=== PATIENT | female | born 1990 | race Two or more races ===

== ENCOUNTER 2021-12-11 14:21 | Outpatient (REF) | payer MEDICAID, SELFPAY ==
--- NOTE | ~2021-12-11 | XR_ITS ---
EXAMINATION: XR LUMBOSACRAL SPINE WITH OBLIQUES CLINICAL INFORMATION: Low back pain. COMPARISON: None TECHNIQUE: AP, both oblique, and lateral views of the lumbar spine. Lateral view of the lumbosacral junction. FINDINGS: There is a transitional vertebral body segment or 6 lumbar-type vertebral bodies. There is mild curvature of the lower lumbar spine to the left. Bone alignment is normal. No fracture or dislocation is seen. Disc spaces are normal. No pars defect is appreciated. XR/XR lumbar spine 4V min IMPRESSION: Transitional anatomy. There are 6 lumbar-type vertebral bodies otherwise unremarkable exam.
== END 2021-12-11 14:22 | disposition home or self-care (01) ==
LOC: HO.XRAY 14:21
PROVIDERS: PCP Nurse Practitioner; Visit Provider Nurse Practitioner
DX: M54.50 Low back pain, unspecified (principal)
CPT/HCPCS: 72110

== ENCOUNTER 2022-10-08 12:10 | Outpatient (REF) | payer MEDICAID, SELFPAY ==
--- NOTE | ~2022-10-08 | XR_ITS ---
EXAMINATION: XR KNEE, LEFT CLINICAL INFORMATION: Chronic pain COMPARISON: None available. TECHNIQUE: Four views of the left knee. FINDINGS: Bones and soft tissues are normal. No fracture or joint effusion. Alignment is anatomic. Joint spaces are well maintained. No abnormal soft tissue calcification. XR/XR knee LT 4V IMPRESSION: Normal left knee.
== END 2022-10-08 12:11 | disposition home or self-care (01) ==
LOC: HO.XRAY 12:10
PROVIDERS: PCP Registered Nurse; Visit Provider Registered Nurse
DX: M25.562 Pain in left knee (principal)
CPT/HCPCS: 73564

== ENCOUNTER 2023-04-26 12:37 | Outpatient (REF) | payer MEDICAID, SELFPAY ==
[2023-04-26 15:07] LABS: Cholesterol 148 mg/dL (<200); HDL Cholesterol 39 mg/dL (>40); LDL Cholesterol Calculated 89 mg/dL (<100); Triglycerides 101 mg/dL (<150)
== END 2023-04-26 12:38 | disposition home or self-care (01) ==
LOC: HO.CHCLDS 12:37
PROVIDERS: Visit Provider Registered Nurse
DX: E11.9 Type 2 diabetes 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 complications (principal)
CPT/HCPCS: 36415; 80061

== ENCOUNTER 2024-01-03 08:13 | Outpatient (REF) | payer MEDICAID, SELFPAY ==
[2024-01-03 11:59] LABS: Rheumatoid Factor < 13.0 IU/mL (<15.0)
[2024-01-03 12:00] LABS: Basophils Percent Auto 0.4 % (0-2); Eosinophils Absolute Auto 0.1 X10*3/uL (0.0-0.4); Eosinophils Percent Auto 1.2 % (0-4); Hemoglobin 10.2 g/dl (12.0-16.0); Imm Gran Abs Auto 0.03 X10*3/uL (0.00-0.03); Imm Gran Pct Auto 0.4 % (0.0-0.4); Mean Corpuscular HGB Conc 30.9 g/dl (31.0-35.0); Mean Corpuscular Hemoglobin 22.7 pg (27.0-33.0); Mean Corpuscular Volume 73.5 fL (80.0-98.0); Monocytes Absolute Auto 0.5 X10*3/uL (0.1-1.2); Monocytes Percent Auto 6.1 % (2-11); Neutrophils Percent Auto 65.9 % (45-73); Platelet Count 190 X10*3/uL (160-400); Red Blood Count 4.49 X10*6/uL (4.20-5.50); Red Cell Distribution Width 18.3 % (11.0-16.0); White Blood Count 7.5 X10*3/uL (4.8-10.8)
[2024-01-03 12:20] LABS: Alanine Aminotransferase 17 U/L (0-31); Albumin Level 3.5 g/dL (3.5-5.0); Alkaline Phosphatase 80 U/L (39-117); Anion Gap 14 (12-20); Aspartate Amino Transferase 19 U/L (5-31); Bilirubin Total 0.2 mg/dL (0.0-1.0); Blood Urea Nitrogen 10 mg/dL (9-16); Calcium 9.2 mg/dL (8.4-10.2); Carbon Dioxide 21 mmol/L (22-29); Chloride 106 mmol/L (96-108); Cholesterol 144 mg/dL (<200); Estimated Glomerular Filt Rate > 60; Glucose Random 144 mg/dL (60-115); HDL Cholesterol 37 mg/dL (>40); LDL Cholesterol Calculated 88 mg/dL (<100); Potassium 4.8 mmol/L (3.3-5.1); Sodium 136 mmol/L (135-145); Total Protein 7.4 g/dL (6.5-8.0); Triglycerides 98 mg/dL (<150)
[2024-01-03 12:25] LABS: HBS Num1 4.11 mIU/mL (0-7.99); HBc Num1 0.42 S/CO (0.00-0.79); HBsAGNum1 0.35 S/CO (0.00-0.99); HIV AB/AG Nonreactive (Nonreactive); HIV Num 1 0.06 S/CO (0.00-0.99); Hepatitis B Core Antibody Nonreactive (Nonreactive); Hepatitis B Surface Antigen Negative (Negative); ~Hepatitis B Surface Antibody NONREACTIVE (Nonreactive)
[2024-01-03 12:26] LABS: Erythrocyte Sedimentation Rate 38 MM/HR (0-20)
[2024-01-05 06:43] LABS: RPR Rapid Plasma Reagin NON-REACTIVE (NON-REACTIVE)
[2024-01-05 13:27] LABS: HCV Log PCR <1.18 NOT DETECTED Log IU/mL (NOT DETECTED); HepC Viral Load <15 NOT DETECTED IU/mL (NOT DETECTED)
[2024-01-07 15:29] LABS: Anti Nuclear Antibody Screen NEGATIVE (NEGATIVE)
== END 2024-01-03 08:14 | disposition home or self-care (01) ==
LOC: HO.HHCL 08:13
PROVIDERS: Visit Provider Registered Nurse
DX: Z00.00 Encounter for general adult medical examination without abnormal findings (principal); M25.50 Pain in unspecified joint
CPT/HCPCS: 36415; 80053; 80061; 84443; 85025; 85652; 86038; 86140; 86431; 86592; 86704; 86706; 87340; 87389; 87522

== ENCOUNTER 2024-02-04 11:32 | Outpatient (REF) | payer MEDICAID, SELFPAY ==
[2024-02-04 14:31] LABS: Hematocrit 33.2 % (37.0-47.0); Hemoglobin 10.1 g/dl (12.0-16.0); Mean Corpuscular HGB Conc 30.4 g/dl (31.0-35.0); Mean Corpuscular Hemoglobin 22.4 pg (27.0-33.0); Mean Corpuscular Volume 73.6 fL (80.0-98.0); PLT CLUMP 1; Red Blood Count 4.51 X10*6/uL (4.20-5.50); Red Cell Distribution Width 17.9 % (11.0-16.0)
[2024-02-04 14:46] LABS: Iron 40 mcg/dL (30-160); Percent Iron Saturation 10 % (15-50); Total Iron Binding Capacity 411 mcg/dL (228-428); Unsaturated Iron Binding 371 ug/dL
[2024-02-04 15:05] LABS: Ferritin 23 ng/mL (10-122); Vitamin D 25-OH Total 15.2 ng/mL (>30)
[2024-02-04 15:25] LABS: White Blood Count 7.5 X10*3/uL (4.8-10.8)
[2024-02-04 15:27] LABS: Platelet Count 177 X10*3/uL (160-400)
[2024-02-04 15:40] LABS: Band Neutrophils Percent 7 % (3-5); Basophils Abs Manual 0.1 X10*3/uL (0.0-0.2); Basophils Percent Manual 1 % (0-2); Lymphocytes Percent Manual 27 % (20-40); Monocytes Absolute Manual 0.2 X10*3/uL (0.1-1.2); Monocytes Percent Manual 3 % (2-11); Neutrophils Absolute Manual 5.2 X10*3/uL (2.0-8.3); Neutrophils Percent Manual 62 % (45-73); RBC Morphology NORMAL
[2024-02-04 15:41] LABS: Platelet Estimate NORMAL (NORMAL); Platelet Morphology Comment NORMAL
[2024-02-07 22:14] LABS: Mumps Virus IgG Antibody 9.22 AU/mL; Rubella IgG Antibody 1.42 Index
== END 2024-02-04 11:33 | disposition home or self-care (01) ==
LOC: HO.CHCLDS 11:32
PROVIDERS: Visit Provider Registered Nurse
DX: Z00.00 Encounter for general adult medical examination without abnormal findings (principal); D50.9 Iron deficiency anemia, unspecified
CPT/HCPCS: 36415; 82306; 82728; 83540; 85007; 85025; 85027; 86735; 86762; 86765; 86787

== ENCOUNTER 2024-09-07 11:32 | Outpatient (REF) | payer MEDICAID, SELFPAY ==
[2024-09-07 14:12] LABS: MANUAL DIFF FLAG NO
[2024-09-07 14:30] LABS: Basophils Percent Auto 0.3 % (0-2); Eosinophils Absolute Auto 0.1 X10*3/uL (0.0-0.4); Eosinophils Percent Auto 0.7 % (0-4); Hematocrit 32.9 % (37.0-47.0); Hemoglobin 9.9 g/dl (12.0-16.0); Imm Gran Abs Auto 0.02 X10*3/uL (0.00-0.03); Imm Gran Pct Auto 0.3 % (0.0-0.4); Lymphocytes Absolute Auto 1.7 X10*3/uL (1.2-4.9); Mean Corpuscular HGB Conc 30.1 g/dl (31.0-35.0); Mean Corpuscular Hemoglobin 21.8 pg (27.0-33.0); Mean Corpuscular Volume 72.3 fL (80.0-98.0); Monocytes Absolute Auto 0.4 X10*3/uL (0.1-1.2); Monocytes Percent Auto 5.8 % (2-11); Neutrophils Absolute Auto 4.6 x10*3/uL (2.0-8.3); Neutrophils Percent Auto 67.9 % (45-73); Platelet Count 172 X10*3/uL (160-400); Red Blood Count 4.55 X10*6/uL (4.20-5.50); Red Cell Distribution Width 18.4 % (11.0-16.0); White Blood Count 6.8 X10*3/uL (4.8-10.8)
[2024-09-07 14:35] LABS: Iron 26 mcg/dL (30-160); Percent Iron Saturation 6 % (15-50); Total Iron Binding Capacity 432 mcg/dL (228-428); Unsaturated Iron Binding 406 ug/dL
[2024-09-07 14:49] LABS: Ferritin 21 ng/mL (10-122); Vitamin D 25-OH Total 12.9 ng/mL (>30)
== END 2024-09-07 11:33 | disposition home or self-care (01) ==
LOC: HO.CHCLDS 11:32
PROVIDERS: Visit Provider Registered Nurse
DX: D50.9 Iron deficiency anemia, unspecified (principal)
CPT/HCPCS: 36415; 82306; 82728; 83540; 85025

== ENCOUNTER 2024-09-19 08:47 | Outpatient (REF) | payer MEDICAID, SELFPAY ==
--- NOTE | 2024-09-19 | EMG_ITS ---
Bilateral median and ulnar motor and sensory studies were performed. Bilateral radial sensory studies were performed and paraspinal muscles were tested with a needle. IMPRESSION: 1. [id number] bilateral median neuropathy across carpal tunnel. 2. Mild right ulnar neuropathy across cubital tunnel. MD CHEYENNE Cavazos/FE / [id number]
--- OUTSIDE RECORDS SUMMARY | 2024-09-19 09:20 | XMS_ITS | Encounter Summary ---
Author Organization [employer] Address [address] [facility] [address], [place] [address] Care Team Providers Care Dry Color Tester Name Role Phone Chery Nicole ROBIN Primary Care Provider [phone] Reason for Visit * Reason Onset Date Comments Results 09/18/2024 Encounter Details Date Type Department Care Team ([facility] st Contact Info) Description 09/18/2024 Telephone [facility] MED & PEDS [address] [place] [address] Stephanie Mercer MD [address] [place] [address] Results Social History Tobacco Use Types Packs/Day Years Used Date Smoking Tobacco: Never Passive Smoke Exposure: Never Smokeless Tobacco: Never Alcohol Use Standard Drinks/Week Comments Not Currently 0 (1 standard drink = 0.6 oz pur e alcohol) Depression Answer Date Recorded Patient Health Questionnaire-9 Score 11 02/04/2024 Patient Health Questionnaire-9 Score 11 02/04/2024 Last PHQ-9: Questionnaire Data Not on file 0 02/04/2024 Housing Stability Answer Date Recorded What is your housing situation today? I do not have housing (Staying with others, in a hotel, in a prison, living outside on the street, on a beach, in a car, or in a park 02/04/[address] you li ve. Do you have problems with any of the following? None of the above 02/04/2024 Food Insecurity Answer Date Recorded Within the past 12 months, y ou worried that your food would run out before you got money to buy more: Sometimes True 2023 Within the past 12 months,th e food you bought just didn't last and you didn't have enough money to get more: Sometimes True 10/15/2023 Transportation Answer Date Recorded In the past 12 months, has l ack of transportation kept you from medical appts, meetings, work or from getting things needed for daily living? Yes, it has kept me from medical appointments or getting medications. 02/04/2024 Utilities Answer Date Recorded In the past 12 months, has t he [employer], gas, oil or water company threatened to shut off services in your home? No 02/04/2024 Depression Answer Date Recorded Patient Health Questionnaire-2 Score 3 02/04/2024 Internet Access Answer Date Recorded Internet Access Q1 Yes 02/04/2024 Internet Access Q2 Not on file 02/04/2024 Comments No Sex and Gender Information Value Date Recorded Sex Assigned at Female 03/16/2022 10:40 AM EDT Legal Sex Female 10:40 AM EDT Gender Identity Female 03/16/2022 10:40 AM EDT Sexual Orientation Straight 03/16/2022 10 :40 AM EDT documented as of this encounter Miscellaneous Notes * Telephone Encounter - Massiel Walker RN - 09/18/2024 11:05 AM EDT TC to pt x3. No way to leave a voicemail. Letter will be sent to pt house to call clinic back If patient is tolerating Fergon M, W, F, increase to once daily and monitor for side effects, primarily constipation. Increase vitamin D to 2000 international units daily. New Rx sent for both. Follow up with Chery Nicole for recheck. documented in this encounter Plan of Treatment Upcoming Encounters Date Type Department Care Team (Late st Contact Info) Description 09/28/2024 9:00 AM EDT Procedure Visit [facility] MEDICINE [address] [place] [address] Yumiko Morales, CNM [address] [place] [address] 11/24/2024 8:45 AM EDT Office Visit [facility] MED & PEDS [address] [place] [address] Chery Nicole FNP [address] [place] [address] 01/01/2025 3:15 PM EDT Office Visit [facility] OPTOMETRY [address] [place] [address] Gina Stringer, OD [address] [place] [address] documented as of this encounter Visit Diagnoses Not on filedocumented in this encounter Additional Health Concerns Assessment Noted Time PHQ-9 Depression Total Score: 11 024 10:16 AM EDT documented as of this encounter Care Teams Dry Color Tester Relationship Specialty Start Date End Date Chery Nicole FNP [address] [place] [address] PCP - General Family Medicine 01/07/22 documented as of this encounter
--- OUTSIDE RECORDS SUMMARY | 2024-09-19 09:20 | XMS_ITS | Encounter Summary ---
Author Organization [employer] Address [address] [place] [address] [address], [place] [address] Care Team Providers Care Underground Electrician Name Role Phone Chery Nicole Primary Care Provider [phone] Reason for Visit * Reason Onset Date Comments Letter for School/Work 07/01/2022 Encounter Details Date Type Department Care Team (Late st Contact Info) Description 07/01/2022 Telephone [facility] [address] [place] [address] Chery Nicole FNP [address] [place] [address] Letter for School/Work Social History Tobacco Use Types Packs/Day Years Used Date Smoking Tobacco: Never Assessed Comments Unknown Sex and Gender Information Value Date Recorded Sex Assigned at Female 03/16/2022 10:40 AM EDT Legal Sex Female 10:40 AM EDT Gender Identity Female 03/16/2022 10:40 AM EDT Sexual Orientation Straight 03/16/2022 10 :40 AM EDT documented as of this encounter Miscellaneous Notes * Telephone Encounter - Daren Pan - 07/01/2022 1:54 PM EST Tc from pt requesting more details on the letter that was given stating why pt needs the dog at home ( DX depression PTSD ) Please update letter. Please contact pt at [phone] documented in this encounter Plan of Treatment Upcoming Encounters Date Type Department Care Team (Late st Contact Info) Description 09/28/2024 9:00 AM EDT Procedure Visit [facility] [address] [place] [address] Yumiko Morales CNM [address] [place] [address] 11/24/2024 8:45 AM EDT Office Visit [facility] [address] [place] [address] Chery Nicole FNP [address] [place] [address] 01/01/2025 3:15 PM EDT Office Visit [facility] [address] [place] [address] Gina Stringer, OD [address] [place] [address] documented as of this encounter Visit Diagnoses Not on filedocumented in this encounter Care Teams Underground Electrician Relationship Specialty Start Date End Date Chery Nicole FNP [address] [place] [address] PCP - General Family Medicine 01/07/22 documented as of this encounter
--- OUTSIDE RECORDS SUMMARY | 2024-09-19 09:20 | XMS_ITS | Encounter Summary ---
Author Organization [employer] Address [address] [place] [address] [address] [place] [address] Care Team Providers Care Rough Rice Grader Name Role Phone Chery Nicole Primary Care Provider [phone] Reason for Visit * Reason Comments Med Refill Encounter Details Date Type Department Care Team ([facility] Contact Info) Description 02/15/2024 Refill [facility] CHC MED & PEDS [address] [place], [place] [phone] Chery Nicole FNP [address] [place] [address] Social History Tobacco Use Types Packs/Day Years [...] with others, in a hotel, in a fdc, living outside on the street, on a [...] the past 12 months, has t he electric, gas, oil or water company threatened to [...] AM EDT documented as of this encounter Plan of Treatment Upcoming Encounters Date Type Department Care Team (Late st Contact Info) Description 09/28/2024 9:00 AM EDT Procedure Visit [facility] MEDICINE [address] [place] [address] Yumiko Morales, PREM [address] [place] [address] 11/24/2024 8:45 AM EDT Office Visit [facility] CHC MED & PEDS [address] [place] [address] Chery Nicole, FILM PROCESSING SHIFT SUPERVISOR [address] [place] [address] 01/01/2025 3:15 PM EDT Office Visit [facility] OPTOMETRY [address] [place] [address] Gina Stringer, OD [address] [place] [address] documented as of this encounter Visit Diagnoses Not on filedocumented in this encounter Additional Health Concerns Assessment Noted Time PHQ-9 Depression Total Score: 11 024 10:16 AM EDT documented as of this encounter Care Teams Rough Rice Grader Relationship Specialty Start Date End Date Chery Nicole FNP [address] [place] [address] PCP - General Family Medicine 01/07/22 documented as of this encounter
--- OUTSIDE RECORDS SUMMARY | 2024-09-19 09:20 | XMS_ITS | Encounter Summary ---
Author Organization [employer] Address [address] [place] [address] [address], [place] [address] Care Team Providers Care Ccu Nurse Name Role Phone hCery Nicole Primary Care Provider [phone] Reason for Visit * Reason Onset Date Comments Letter for School/Work 05/14/2022 Encounter Details Date Type Department Care Team ([facility] st Contact Info) Description 05/14/2022 Telephone [facility] MEDICINE [address] [place] [address] Chery Nicole FNP [address] [place] [address] Letter for School/Work Social History Tobacco Use [...] encounter Miscellaneous Notes * Telephone Encounter - Shayy REYNA Muniz - 05/22/2022 3:55 PM EST First tried tele# in message with wrong area code several times diff #'s, tried calling tele# on file with correct area code and it stated that # is not taking calls right now. Patient needs to be informed when she calls that she needs to go to Med Rec Dept to put in request and do an auth to release form. This is the process for everyone requesting letters/forms for anything, requiring provider s ignature. * Telephone Encounter - Daren Jimenezos - 05/14/2022 12:51 PM EST Tc from pt requesting a letter stating pt needs a dog to help her with anxiety Please contact pt at [phone] documented in this encounter Plan of Treatment Upcoming Encounters Date Type Department Care Team (Late st Contact Info) Description 09/28/2024 9:00 AM EDT Procedure Visit [facility] MEDICINE [address] [place] [address] Yumiko Morales CNM [address] [place] [address] 11/24/2024 8:45 AM EDT Office Visit [facility] CHC MED & PEDS [address] [place] [address] Chery Nicole FNP [address] [place] [address] 01/01/2025 3:15 PM EDT Office Visit [facility] OPTOMETRY [address] [place] [address] TarkaGina, OD [address] [place] [address] documented as of this encounter Visit Diagnoses Not on filedocumented in this encounter Care Teams Ccu Nurse Relationship Specialty Start Date End Date Chery Nicole FNP [address] [place] [address] PCP - General Family Medicine 01/07/22 documented as of this encounter
--- OUTSIDE RECORDS SUMMARY | 2024-09-19 09:20 | XMS_ITS | Clinical Summary ---
Author Organization [employer] Address [address] [facility] 7 [place] [address] Care Team Providers Care Transliterator Name Role Phone ChadwickChery vickers ROBIN Primary Care Provider [phone] Allergies Active Allergy Reactions Criticality Noted Date Comments Penicillins Hives,Swelling 07/18/2021 Medications * This document contains information received from the source organization and may not represent a complete record from that organization. Alcohol Swabs (Alcohol Prep) 70 % pads TEST BLOOD SUGAR TWICE DAILY 08/18/19 23 Active atorvastatin (Lipitor) 10 MG tablet Take 1 tablet by mouth at bed time. 12/10/19 22 Active TRUEplus Lancets 33G misc USE 1 TO TEST BLOOD SUGAR TWICE DAILY 08/18/19 23 Active nabumetone (Relafen) 500 MG tabletIndication s:Chronic bilateral low back pain without sciatica TAKE 1 TABLET BY MOUTH TWICE DAILY NEEDED BACK PAIN 60 tablet 3 03/10/20 23 Active Blood Glucose Monitoring Suppl (FreeStyle Ferdinand Lite) w/Device kitIndications:T ype 2 diabetes 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 complication, without long-term current use of insulin ([facility]) TEST BLOOD SUGAR TWICE DAILY 1 kit 11/26/19 24 Active FREESTYLE LITE test stripIndications :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, without long-term current use of insulin ([facility]) Use to check blood sugar twice daily 100 each 11 11/26/19 24 Active losartan-hydroCH LOROthiazide (Hyzaar) 100-25 MG tablet Take 1 tablet by mouth Once per day. 90 tablet 1 02/04/20 24 2024 Active escitalopram (Lexapro) 5 MG tabletIndication s:Other depression TAKE 1 TABLET BY MOUTH EVERY DAY IN THE MORNING 90 tablet 1 03/27/20 24 Active ibuprofen 600 MG tablet TAKE 1 TABLET BY MOUTH EVERY 8 HOURS NEEDED FOR PAIN OR FEVER. TAKE WITH FOOD 100 tablet 3 06/27/19 25 Active Spacer/Aero-Hold ing Chambers (OptiChamber Beatrice) misc 1 each every 4 (four) hours if needed (asthma). 1 each 08/01/19 25 Active azithromycin (Zithromax Z-Brandon) 250 MG tablet Take 2 tablets once on day 1, then 1 tablet 1x/day for 4 days. 6 tablet 08/01/19 25 Active Blood Pressure kit 1 each 2 times daily. Call [facility] if BP readings are > 140/80 1 kit 08/01/19 25 2025 Active Tirzepatide-Weig ht Management (Zepbound) 2.5 MG/0.5ML solution auto-injectorInd ications:Class 3 severe obesity with body mass index (BMI) of 50.0 to 59.9 in adult, unspecified obesity type, unspecified whether serious comorbidity present Inject 0.5 mL (2.5 mg) under the skin 1 (one) time per week. 2 mL 3 08/22/19 25 Active albuterol (Ventolin HFA) 108 (90 Base) MCG/ACT inhaler INHALE 2 PUFFS EVERY 4 HOURS NEEDED FOR WHEEZING AND SHORTNESS OF BREATH 18 g 11 09/13/19 25 Active ferrous gluconate (Fergon) 324 (38 Fe) MG tabletIndication s:Microcytic anemia Take 1 pill daily. Take with a full glass of water or Vit C containing juice, and ideally 1 hour before food or 2 hours after food. Repeat blood work after medication done. 30 tablet 09/08/19 25 Active cholecalciferol (Vitamin D-3) 25 MCG (1000 UT) tabletIndication s:Microcytic anemia,Vitamin D insufficiency Take 2 tablets daily. 60 tablet 09/08/19 25 Active cholecalciferol (Vitamin D-3) 25 MCG (1000 UT) tabletIndication s:Vitamin D insufficiency,Mi crocytic anemia Take 1 tablet (25 mcg) by mouth Once per day. 90 tablet 1 03/06/20 24 2024 Discontinued(R eorder (will not trigger notification to Pharmacy)) ferrous gluconate (Fergon) 324 (38 Fe) MG tabletIndication s:Microcytic anemia Take 1 pill every Wednesday, Wednesday, Wednesday. Take with a full glass of water or Vit C containing juice, and ideally 1 hour before food or 2 hours after food. Repeat blood work after medication done. 36 tablet 03/06/20 24 2024 Discontinued(R eorder (will not trigger notification to Pharmacy)) Semaglutide-Weig ht Management 0.5 MG/0.5ML solution auto-injectorInd ications:Class 3 severe obesity with body mass index (BMI) of 50.0 to 59.9 in adult, unspecified obesity type, unspecified whether serious comorbidity present Inject 0.5 mL (0.5 mg) under the skin every 7 (seven) days. 2 mL 03/24/20 24 2024 Discontinued(T herapy completed) Tirzepatide-Weig ht Management (Zepbound) 2.5 MG/0.5ML solution auto-injectorInd ications:Class 3 severe obesity with body mass index (BMI) of 50.0 to 59.9 in adult, unspecified obesity type, unspecified whether serious comorbidity present Inject 0.5 mL (2.5 mg) under the skin 1 (one) time per week. Do not start before May 17, 2024. 2 mL 3 05/17/19 25 2024 Discontinued(R eorder (will not trigger notification to Pharmacy)) albuterol 108 (90 Base) MCG/ACT inhaler Inhale 2 puffs every 4 (four) hours if needed for wheezing or shortness of breath. 18 g 1 08/01/19 25 2024 Discontinued erythromycin (Romycin) 5 MG/GM ophthalmic ointment Apply to right eye 4 times daily for 10 days. Apply Amount per Dose: 0.25 inch (~0.5 cm) per dose. 3.5 g 08/29/19 25 2024 Active Problems Problem Noted Date Diagnosed Date Acute conjunctivitis of right eye 08/28/2024 Assessment & Plan (08/28/2024 10:48 AM EDT): Keep eye clean and dry, can clean it with with baby shampoo several times per day. Apply erythromycin ointment 3-4 times per day to affected eye, wash your hands with soap and water after application. She will be out of work for least 2 days until discharge is improved RTC as needed worsening of symptoms Numbness and tingling in both hands 08/21/2024 Assessment & Plan (08/21/2024 3:14 PM EDT): Order for bilateral EMG placed 08/21/24 Microcytic anemia 03/19/2024 Assessment & Plan (08/21/2024 3:15 PM EDT): -Microcytic anemia w/ low iron and Vit D -Initiated PO iron and Vit D supplementation Feb 2024 -Denies active symptoms of anemia -ED/follow up precautions reviewed -Repeat lab work Assessment & Plan (03/19/2024 3:55 PM EST): -Microcytic anemia w/ low iron and Vit D -Initiated PO iron and Vit D supplementation Feb 2024 -Denies active symptoms of anemia -ED/follow up precautions reviewed Right knee pain 02/24/2024 Assessment & Plan (02/24/2024 3:36 PM EDT): - Acute on chronic pain right knee - No red flag symptoms - XR ordered Apr 2023, results not available - Cont symptomatic management and referral to Ortho for further eval Class 3 severe obesity with body mass index (BMI) of 50.0 to 59.9 in adult 01/02/2024 Assessment & Plan (08/21/2024 3:13 PM EDT): Encouraged to continue with nutrition and physical activity interventions Tx with Michael 2023 with good response Baseline weight: 147kg Today's weight: 147kg Reports regained weight that she had lost d/t being w/o medication. Will re- submit PA for Zepbound. Assessment & Plan (03/27/2024 5:46 PM EST): Encouraged to continue with nutrition and physical activity interventions 01/03/24: Michael was approved [id number]. Exp: 07/05/24. 0.25mg dose started Jan 2024. Reviewed med safety and SE Assessment & Plan (03/19/2024 4:01 PM EST): Encouraged to continue with nutrition and physical activity interventions 01/03/24: Wegovy was approved PA#[id number]. Exp: 07/05/24. 0.25mg dose started Jan 2024. Reviewed med safety and SE Assessment & Plan (02/24/2024 3:29 PM EDT): Encouraged to continue with nutrition and physical activity interventions 01/03/24: Wegovy was approved PA#[id number]. Exp: 07/05/24. Plan to start 0.25mg subcutaneous dose, sent to pharmacy. Reviewed med safety and SE Assessment & Plan (01/02/2024 8:34 AM EDT): Encouraged to continue with nutrition and physical activity interventions Discussed consideration of medications options, shared decision making to proceed with PA for Wegovy. Reviewed med safety and SE. Offered for pt to present to office for teaching prior to first injection. Will also update labs. Healthcare maintenance 03/15/2023 Overview (02/24/2024): Pap: due, encouraged to schedule Last PE: 02/04/24 OPH: LEANN at [facility] in Dec 2022. No diabetic retinopathy Mammo: routine screening starting at 40 y/o Assessment & Plan (03/19/2024 3:58 PM EST): - MMR titers Jan 2024 not c/w immunity against mumps - MMR booster administered in office today w/ COVID IZ CARMELO (generalized anxiety disorder) 09/14/2022 Chronic bilateral low back pain without sciatica 09/13/2022 Assessment & Plan (04/29/2023 9:37 PM EST): XR November 2021: IMPRESSION: Transitional anatomy. There are 6 lumbar-type vertebral bodies otherwise unremarkable exam. -Continue nabumetone 500 mg BID with food as needed -Previously referred to PT for low back and knee pain for further eval and tx - re-referral today Assessment & Plan (10/28/2022 5:12 PM EDT): XR November 2021: IMPRESSION: Transitional anatomy. There are 6 lumbar-type vertebral bodies otherwise unremarkable exam. -Continue nabumetone 500 mg BID with food as needed -Previously referred to PT for low back and knee pain for further eval and tx - referral letter with clinic info provided to pt today in office Assessment & Plan (09/19/2022 5:57 PM EDT): XR November 2021: IMPRESSION: Transitional anatomy. There are 6 lumbar-type vertebral bodies otherwise unremarkable exam. -Continue nabumetone 500 mg BID with food as needed -Referral to PT of low back and knee pain for further eval and tx Type 2 diabetes mellitus 07/31/2021 Overview (08/21/2024): Lab Results Component Value Date HGBA1C 7.4 (A) 08/21/2024 HGBA1C 6.7 (A) 02/04/2024 HGBA1C 6.5 (A) 11/25/2023 HGBA1C 6.9 (H) 07/18/2021 A1c: Increased, above goal Microalbumin/Cr:Alb: due Lipids: TC 144, HDL 37, LDL 88, TG 98 on 01/03/24 Eye exam: Dec 2022 at [facility] Dental: due PNA (PPSV, then PCV 13): UTD TDap/Td: UTD Foot exam/peripheral pulses: WNL 11/26/23 NICA/ARB: yes Statin: yes Assessment & Plan (08/21/2024 3:15 PM EDT): Goal to start GLP-1 for diabetes/weight loss Assessment & Plan (03/19/2024 4:10 PM EST): Plan to hold metformin GLP1 being used for weight loss, but reports sporadic episodes of hypoglycemia since last appt. Advised small, frequent, nutritious snacking throughout the day instead of intermittent fasting. If does not improve with change above, follow up with our office. Assessment & Plan (11/26/2023 2:43 PM EDT): Continue metformin 500mg BID Lab Results Component Value Date HGBA1C 6.5 (A) 11/25/2023 HGBA1C 6.1 (A) 04/26/2023 HGBA1C 7.0 (A) 09/14/2022 HGBA1C 6.9 (H) 07/18/2021 Well controlled Microalbumin/Cr:Alb: due Lipids: Total Cholesterol 159, HDL 38, LDL 98, TG 132 last on 07/18/21. due Eye exam: appt November 2022 at [facility] Dental: due PNA (PPSV, then PCV 13): UTD TDap/Td: UTD Foot exam/peripheral pulses: WNL 11/26/23 NICA/ARB: yes Statin: yes Assessment & Plan (04/29/2023 9:36 PM EST): ?? Continue metformin 500mg BID Lab Results Component Value Date HGBA1C 6.1 (A) 04/26/2023 HGBA1C 7.0 (A) 09/14/2022 HGBA1C 6.9 (H) 07/18/2021 Well controlled Microalbumin/Cr:Alb: pending Lipids: Total Cholesterol 159, HDL 38, LDL 98, TG 132 last on 07/18/21. pending Eye exam: appt November 2022 at [facility] Dental: due PNA (PPSV, then PCV 13): UTD TDap/Td: UTD Foot exam/peripheral pulses: next appt NICA/ARB: yes Statin: yes Assessment & Plan (10/28/2022 5:11 PM EDT): ?? Continue metformin 500mg BID Lab Results Component Value Date HGBA1C 7.0 (A) 09/14/2022 Well controlled Microalbumin/Cr:Alb: pending Lipids: Total Cholesterol 159, HDL 38, LDL 98, TG 132 last on 07/18/21 Eye exam: appt November 2022 at [facility] Dental: due PNA (PPSV, then PCV 13): UTD TDap/Td: UTD Foot exam/peripheral pulses: next appt NICA/ARB: yes Statin: yes Assessment & Plan (09/19/2022 5:52 PM EDT): ?? Continue metformin 500mg BID Lab Results Component Value Date HGBA1C 7.0 (A) 09/14/2022 Well controlled Microalbumin/Cr:Alb: pending Lipids: Total Cholesterol 159, HDL 38, LDL 98, TG 132 last on 07/18/21 Eye exam: due Dental: due PNA (PPSV, then PCV 13): administered TDap/Td: administered Foot exam/peripheral pulses: due NICA/ARB: yes Statin: yes Essential hypertension 07/18/2021 Assessment & Plan (08/28/2024 10:47 AM EDT): Borderline controlled today, no change in medications. Follow-up with PCP Assessment & Plan (08/21/2024 3:11 PM EDT): BP goal < 140/90mmHg, above goal in office, although well controlled per home readings Cont Losartan/HCTZ 100-25 mg daily. Reviewed med safety and SE. Encourage goal low salt diet and 150 mins physical activity weekly Monitor home BP and contact the clinic if BP is persistently >140/90 mmHg Assessment & Plan (03/19/2024 4:15 PM EST): BP goal < 140/90mmHg, above goal in office, although well controlled per home readings Cont Losartan/HCTZ 100-25 mg daily. Reviewed med safety and SE. Encourage goal low salt diet and 150 mins physical activity weekly Monitor home BP and contact the clinic if BP is persistently >140/90 mmHg Assessment & Plan (02/24/2024 3:28 PM EDT): BP goal < 140/90mmHg, above goal Increase to Losartan/HCTZ 100-25 mg daily. Reviewed med safety and SE. Encourage goal low salt diet and 150 mins physical activity weekly Monitor home BP and contact the clinic if BP is persistently >140/90 mmHg Assessment & Plan (10/28/2022 5:10 PM EDT): ?? BP goal < 140/90mmHg ?? Continue losartan/HCTZ 100-12.5 mg daily. Reviewed med safety and SE. ?? Encourage goal low salt diet and 150 mins physical activity weekly ?? Monitor home BP and contact the clinic if BP is persistently >140/90 mmHg Assessment & Plan (09/19/2022 5:50 PM EDT): ?? BP goal < 140/90mmHg, currently above goal ?? Increase to losartan losartan/HCTZ 100-12.5 mg daily. Reviewed med safety and SE. ?? Encourage goal low salt diet and 150 mins physical activity weekly ?? Monitor home BP and contact the clinic if BP is persistently >140/90 mmHg ?? Follow up in 1 month with home BP readings, sooner PRN Reactive depression (situational) 07/18/2021 Assessment & Plan (02/24/2024 3:34 PM EDT): -Continue with lexapro 5mg daily -Denies SI/HI/thoughts of self harm Assessment & Plan (10/28/2022 3:12 PM EDT): -Continue with lexapro 5mg daily Assessment & Plan (09/19/2022 5:57 PM EDT): -BE completed at end of visit with the following plan: provided contact info for [facility]-[phone], for OP and family therapy -No active SI/HI/thoughts of self harm, safety planning completed -Continue with lexapro 5mg nightly. Consider med adjustment and/or adjunct at follow up appt Encounters Date Type Department Care Team Description 09/18/2024 Telephone [facility] [address] [place] [address] Stephanie Mercer MD Results 09/11/2024 Telephone [facility] [address] [place] [address] Stephanie Mercer MD Results; Medication Question 09/07/2024 Refill [facility] [address] [place] [address] Aravind Meeks MD 09/01/2024 Telephone [facility] [address] [place] [address] Chery Nicole FNP PCP request 08/28/2024 10:00 AM EDT Office Visit [facility] [address] [place] [phone] Lisbeth Ness MD Acute conjunctivitis of right eye, unspecified acute conjunctivitis type (Primary Dx); Essential hypertension 08/25/2024 Telephone [facility] [address] [place] [address] Chery Nicole FNP Results 08/23/2024 Telephone [facility] [address] [place] [address] Chery Nicole FNP Prior Authorization 08/22/2024 Telephone [facility] [address] [place] [phone] Chery Nicole FNP EMG ORDER 08/21/2024 11:15 AM EDT Office Visit [facility] [address] [place] [address] Chery Nicole FNP Microcytic anemia (Primary Dx); 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, without long-term current use of insulin ([facility]); Class 3 severe obesity with body mass index (BMI) of 50.0 to 59.9 in adult, unspecified obesity type, unspecified whether serious comorbidity present; Numbness and tingling in both hands; Essential hypertension 08/21/2024 Travel 08/18/2024 11:30 AM EDT Office Visit [facility] [address] [place] [phone] Edvin, Ester, OD Presbyopia (Primary Dx) 08/17/2024 Telephone [facility] [address] [place] [address] Chery Nicole FNP Chart Prep 08/02/2024 Telephone [facility] [address] [place] [phone] Aravind Meeks MD 07/31/2024 9:20 AM EDT Office Visit [facility] WALK-IN [address] [address] Aravind Meeks MD Influenza-like symptoms (Primary Dx); Essential hypertension 07/28/2024 Population Health Risk Score [facility] ([facility]) Department [address] [place] [id number] Provider, Population Health Generic 07/07/2024 Telephone [facility] [address] [place] [address] Chery Nicole FNP No Show 07/06/2024 Telephone [facility] [address] [place] [address] Elliot Matos MA Chart Prep 06/27/2024 Patient Outreach [facility] [address] [place], [place] [phone] Chery Nicole FNP Care Coordination ([facility] Kandice Erazo telephone call outreach) 06/25/2024 Refill [facility] [address] [place], [place] [phone] Chery Nicole FNP from Last 3 Months Immunizations Name Administration Dates Next Due Hep B, adult 02/04/2024 Influenza injectable quadriv alent preservative free 04/26/2023 MMR 03/06/2024 Moderna Covid-19 Vaccine 12+ 07/03/2021 Moderna Covid-19 Vaccine 6+ Bivalent 07/22/2022 Pfizer Covid-19 Vaccine 12+ 03/06/2024,,06/06/2020 Pneumococcal Conjugate PCV 20 09/14/2022 Tdap 09/14/2022 Family History Medical History Relation Name Comments Diabetes Father Hypertension Father Lung cancer Maternal Grandfather Relation Name Status Comments Father Maternal Grandfather Social History Tobacco Use Types Packs/Day Years Used Date Smoking Tobacco: Never Passive Smoke Exposure: Never Smokeless Tobacco: Never Tobacco Cessation:Counseling Given: Not Answered Alcohol Use Standard Drinks/Week Comments Not Currently [...] with others, in a hotel, in a snf, living outside on the street, on a [...] Orientation Straight 03/16/2022 10 :40 AM EDT Last Filed Vital Signs Vital Sign Reading Time Taken Comments Blood Pressure 140/78 08/28/2024 10:16 AM EDT Pulse 78 08/28/2024 9:45 AM EDT Temperature 36.6 ??C (97.9 ??F) 08/28/2024 9:45 AM ED T Respiratory Rate 16 08/28/2024 9:45 AM EDT Oxygen Saturation 98% 08/28/2024 9:45 AM EDT Inhaled Oxygen Concentration - - Weight 149 kg (328 lb 2 oz) 08/28/2024 9:45 AM E DT Height 167.6 cm (5' 6 ) 08/28/2024 9:45 AM EDT Body Mass Index 52.96 08/28/2024 9:45 AM EDT Plan of Treatment Upcoming Encounters Date Type Department Care Team (Late st Contact Info) Description 09/28/2024 9:00 AM EDT Procedure Visit [facility] [address] [place] [address] Yumiko Morales, CNM [address] [place] [address] 11/24/2024 8:45 AM EDT Office Visit [facility] [address] [place], [place] [phone] Chery Nicole, [employer] [address] [place], [place] [phone] 01/01/2025 3:15 PM EDT Office Visit [facility] OPT[facility] [address] [place] [address] Gina Stringer, OD [address] [place] [address] Health Maintenance Due Date Last Done Comments Family Planning (PISQ) 2003 Diabetes: Urine Protein Screening 2007 Pap Smear 2009 Cervical Cancer Screening 2018 HPV/Cotest 2018 Influenza Vaccine (#1) 2024 04/26/2023 Hepatitis B Vaccines (2 of 3 - 19+ 3-dose series) 03/03/2024 02/04/2024 Diabetes: Hemoglobin A1C 11/20/202408/21/2 025, 02/04/2024, 11/25/2023, Additional history exists Diabetes: Foot Exam 11/24/2024 11/25/2023 Lipid Panel 01/02/2025 01/03/2024, 04/16, 07/18/2021 Alcohol/Substance Use Screening 02/03/2025 02/04/2024 Depression Screening 02/03/2025 02/04/2024, 02/04/20 24 SDOH Screening 02/03/2025 02/04/2024 Tobacco Screening 08/28/2025 08/28/2024 Eye Exam 12/29/2025 12/30/2023, 12/15, 12/30/2023, Additional history exists DTaP/Tdap/Td Vaccines (2 - Td or Tdap) 09/14/2032 09/14/2022 Zoster Vaccines (1 of 2) 2038 RSV Patients and Patients Aged 60 years or older (1 - 1-dose 75+ series) 2063 Pneumococcal Vaccine: Pediatrics (0 to 5 Years) and At-Risk Patients (6 to 49) Years) Completed 09/14/2022 HIV Screening Completed 01/03/2024, 07/18/2021 Hepatitis C Screening Completed 01/03/2024, 022 COVID-19 Vaccine Completed 03/06/2024, 12/2022, 07/03/2021, Additional history exists HIB Vaccines Aged Out No longer eligi ble based on patient's age to complete this topic HPV Vaccines Aged Out No longer eligi ble based on patient's age to complete this topic Hepatitis A Vaccines Aged Out No long er eligible based on patient's age to complete this topic IPV Vaccines Aged Out No longer eligi ble based on patient's age to complete this topic Meningococcal Vaccine Aged Out No marvin miriam eligible based on patient's age to complete this topic RSV under 20 months Aged Out No longe r eligible based on patient's age to complete this topic Rotavirus Vaccines Aged Out No longer eligible based on patient's age to complete this topic Procedures Procedure Name Priority Date/Time Associated Diagnosis Comments VITAMIN D,25-OH,TOTAL,IA Routine 09/07/2024 11:34 AM EDT Microcytic anemia IRON AND TOTAL IRON BINDING CAPACITY Routine 09/07/2024 11:34 AM EDT Microcytic anemia FERRITIN Routine 09/07/2024 11:34 AM EDT Microcytic anemia CBC WITH AUTO DIFFERENTIAL Routine 09/07/2024 11:34 AM EDT Microcytic anemia POCT GLYCATED HEMOGLOBIN, TOTAL Routine 08/21/2024 11:51 AM EDT 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, without long-term current use of insulin ([facility]) POCT GLUCOSE Routine 08/21/2024 11:51 AM EDT 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, without long-term current use of insulin ([facility]) POCT RAPID STREP A Routine 07/31/2024 9: 29 AM EDT Influenza-like symptoms POCT RAPID COVID ANTIGEN Routine 07/31/2024 9:29 AM EDT Influenza-like symptoms POCT INFLUENZA A (ID NOW RAPID MOLECULAR) Routine 07/31/2024 9:29 AM EDT Influenza-like symptoms POCT INFLUENZA B (ID NOW RAPID MOLECULAR) Routine 07/31/2024 9:29 AM EDT Influenza-like symptoms HEPATITIS C VIRAL RNA, QUANTITATIVE, REAL-TIME PCR Routine 01/03/2024 8:16 AM EDT Healthcare maintenance HIV 1/2 ANTIGEN/ANTIBODY, FOURTH GENERATION W/RFL Routine 01/03/2024 8:16 AM EDT Healthcare maintenance LIPID PANEL, STANDARD Routine 01/03/2024 8:16 AM EDT Healthcare maintenance from Last 3 Months or Most Recently Relevant to Health Maintenance Results * (ABNORMAL) Vitamin D, 25-Hydroxy, Total, Immunoassay (09/07/2024 11:34 AM EDT) [facility] Vitamin D 25-OH Total 12.9(L) >30 ng/mL [facility] Comment: Health Based Reference Values*< 20 ??ng/mL ??[id number] ng/mL ??Insufficient> 30 ??ng/mL ??Sufficient*Patti PHILIP. N Engl J Med. 2007;[id number] is no well-established upper level of normal vitamin Dlevels. Some laboratories use 50 ng/mL as an upper limit ofnormal. However, toxicity is patient-dependent and may occurat any level. Careful correlation with the patient'spresentation is necessary and, if there is concern forvitamin D toxicity, treatment should be consideredirrespective of the serum level.Care must be taken in interpreting Vitamin D results fromdifferent laboratories and methodologies. ??Published datademonstrated that results from patients undergoinghemodialysis may show a negative bias when tested withvarious automated 25-OH vitamin D assays when compared toLC- MS/MS.When testing samples from patients whose predominant form ofVitamin D is Vitamin D2, such as patients receiving VitaminD2 supplementation, results that are subtherapeutic shouldbe confirmed with another method such as LC-MS/MS. Blood Venous blood specimen / Unknown 09/07/2024 11:34 AM EDT 09/07/2024 2:06 PM EDT us Chery Nicole SAND BLASTER LAB BLOOD ORDERABLES Final Res ult [facility] [address] [place] [address] [phone] * (ABNORMAL) CBC auto differential (09/07/2024 11:34 AM EDT) White Blood Count 6.8 4.8 - 10.8 X10*3/uL [facility] Red Blood Count 4.55 4.20 - 5.50 X10*6/uL [facility] Hemoglobin 9.9(L) 12.0 - 16.0 g/dl [facility] Hematocrit 32.9(L) 37.0 - 47.0 % [facility] Mean Corpuscular Volume 72.3(L) 80.0 - 98.0 fL [facility] Mean Corpuscular Hemoglobin 21.8(L) 27.0 - 33.0 pg [facility] Mean Corpuscular HGB Conc 30.1(L) 31.0 - 35.0 g/dl [facility] Red Cell Distribution Width 18.4(H) 11.0 - 16.0 % [facility] Platelet Count 172 160 - 400 X10*3/uL [facility] Neutrophils Percent Auto 67.9 45 - 73 % [facility] Imm Gran Pct Auto 0.3 0.0 - 0.4 % [facility] Lymphocytes Percent Auto 25.0 20 - 40 % [facility] Monocytes Percent Auto 5.8 2 - 11 % [facility] Eosinophils Percent Auto 0.7 0 - 4 % [facility] Basophils Percent Auto 0.3 0 - 2 % [facility] NRBC Pct Auto 0.0 0.0 - 0.2 /100WBC [facility] Neutrophils Absolute Auto 4.6 2.0 - 8.3 x10*3/uL [facility] Imm Gran Abs Auto 0.02 0.00 - 0.03 X10*3/uL [facility] Lymphocytes Absolute Auto 1.7 1.2 - 4.9 X10*3/uL [facility] Monocytes Absolute Auto 0.4 0.1 - 1.2 X10*3/uL [facility] Eosinophils Absolute Auto 0.1 0.0 - 0.4 X10*3/uL [facility] Basophils Absolute Auto 0.0 0.0 - 0.2 X10*3/uL [facility] NRBC Abs Auto 0.000 0.0 - 0.012 X10*3/uL [facility] Blood Venous blood specimen / Unknown 09/07/2024 11:34 AM EDT 09/07/2024 2:08 PM EDT us Chery Nicole SAND BLASTER LAB BLOOD ORDERABLES Final Res ult [facility] [address] [place] [phone] * (ABNORMAL) Iron And Total Iron Binding Capacity (09/07/2024 11:34 AM EDT) Iron 26(L) 30 - 160 mcg/dL [facility] Total Iron Binding Capacity 432(H) 228 - 428 mcg/dL [facility] Percent Iron Saturation 6(L) 15 - 50 % [facility] Unsaturated Iron Binding 406 ug/dL [facility] Blood Venous blood specimen / Unknown 09/07/2024 11:34 AM EDT 09/07/2024 2:06 PM EDT us Chery Nicole SAND BLASTER LAB BLOOD ORDERABLES Final Res ult Performing Organization Address [facility]/ZIP Co de Phone Number [facility] [address] [place] [phone] * Ferritin (09/07/2024 11:34 AM EDT) Pathologist [facility] Ferritin 21 10 - 122 ng/mL [facility] Blood Venous blood specimen / Unknown 09/07/2024 11:34 AM EDT 09/07/2024 2:06 PM EDT us Chery Nicole SAND BLASTER LAB BLOOD ORDERABLES Final Res ult Performing Organization Address [facility] Co de Phone Number [facility] [address] [place] [address] [phone] * (ABNORMAL) POCT HGB A1C (08/21/2024 11:51 AM EDT) Pathologist [facility] Hemoglobin A1C 7.4(A) 4.0 - 6.0 % QC Media Lot # [id number] Lot# Expiration Date , Blood 08/21/2024 11:5 1 AM EDT us Chery Nicole SAND BLASTER POINT OF CARE TEST ENTER/EDIT ORDERABLES Final Result * (ABNORMAL) POCT Glucose (08/21/2024 11:51 AM EDT) Pathologist [facility] Glucose Blood, POC 217(A) 60 - 200 mg/dL QC Media Lot # [id number] Lot# Expiration Date 732,025 Blood Capillary blood specimen / Unknown 08/21/2024 11:51 AM EDT us Chery Nicole SAND BLASTER POINT OF CARE TEST ENTER/EDIT ORDERABLES Final Result * Influenza B (ID NOW Rapid Molecular) (07/31/2024 9:29 AM EDT) [facility] Influenza B Negative Negative, Indeterminate [facility] Swab 07/31/2024 9:29 AM EDT Aravind Meeks MD POINT OF CARE TEST ENTER/EDIT OR DERABLES Final Result Performing Organization Address [facility]/ZIP Co de Phone Number [facility] [address] [place] [phone] * Influenza A (ID NOW Rapid Molecular) (07/31/2024 9:29 AM EDT) [facility] Influenza A Negative Negative, Indeterminate [facility] Swab 07/31/2024 9:29 AM EDT us Aravind Meeks MD POINT OF CARE TEST ENTER/EDIT OR DERABLES Final Result Performing Organization Address [facility] Co de Phone Number [facility] [address] [place] [phone] * POCT Rapid COVID Ag (07/31/2024 9:29 AM EDT) [facility] Rapid COVID Ag Negative Swab 07/31/2024 9:29 AM EDT Aravind Meeks MD POINT OF CARE TEST ENTER/EDIT OR DERABLES Final Result * POCT rapid strep A manually resulted (07/31/2024 9:29 AM EDT) [facility] Rapid Strep A Screen Negative Negative, None Detected Swab 07/31/2024 9:29 AM EDT us Aravind Meeks MD POINT OF CARE TEST ENTER/EDIT OR DERABLES Final Result * Hepatitis C Viral RNA, Quantitative, Real-Time PCR (01/03/2024 8:16 AM EDT) Hepatitis C Viral Load <15 NOT DETECTED NOT DETECTED IU/mL [facility] HCV Log PCR <1.18 NOT DETECTED NOT DETECTED Log IU/mL [facility] Comment:For additional infor julian, please refer tohttp://education.[employer]/faq/YXN65l4(This link is being provided for informational/educational purposes only.)THIS TEST WAS PERFORMED AT:[facility] [place] [phone] CALLAWAY MD Blood 01/03/2024 8:16 AM EDT 01/03/2024 11:32 AM EDT us Chery Nicole SAND BLASTER LAB BLOOD ORDERABLES Final Res ult [facility] [address] [place] [phone] * HIV-1/2 Antigen and Antibodies, Fourth Generation, with Reflexes (01/03/2024 8:16 AM EDT) Pathologist [facility] HIV AB/AG Nonreactive Nonreactive [facility] Comment:HIV-1 p24 Ag and/or HIV-1/HIV-2 Ab not detected.A test result that is nonreactive does not exclude thepossibility of exposure to or infection with HIV-1 and/orHIV-2. Nonreactive results in this assay for individualswith prior exposure to HIV-1 and/or HIV-2 may be due toantigen and antibody levels that are below the limit ofdetection of this assay.The [employer] HIV Ag/Ab Combo assay result andsupplemental assay results should be interpreted inconjunction with the patient's clinical presentation,history and other laboratory results. If the results areinconsistent with clinical evidence, additional testing issuggested to confirm the result. Blood Venous blood specimen / Unknown 01/03/2024 8:16 AM EDT 01/03/2024 11:32 AM EDT us Chery Nicole [facility] BLOOD ORDERABLES Final Res ult Performing Organization Address City/[facility]/ZIP Co de Phone Number [facility] [address] [place] [phone] * (ABNORMAL) Lipid Panel, Standard (01/03/2024 8:16 AM EDT) Triglycerides 98 <150 mg/dL [facility] Comment:Desirable Triglyceri de: less than 150 mg/dLBorderline High Triglyceride 150-199 mg/dLHigh Triglyceride: 200-499 mg/dLVery High Triglyceride: greater than or equal to 5OO mg/dL Cholesterol 144 <200 mg/dL [facility] Comment:Desirable Cholestero l: less than 200 mg/dLBorderline High Cholesterol: 200-239 mg/dLHigh Cholesterol: greater than 239 mg/dL LDL Cholesterol Calculated 88 <100 mg/dL [facility] Comment:Desirable LDL: less than 100 mg/dLNear Optimal/Above Optimal LDL: 110- 129 mg/dLBorderline High LDL: 130-159 mg/dLHigh LDL: 160-189 mg/dLVery High LDL: greater than or equal to 190 mg/dL HDL Cholesterol 37(L) >40 mg/dL [facility] Comment:Desirable HDL: great er than 40 mg/dL Note: This HDL assay may give artificially low results in patients with liver disease. Blood Venous blood specimen / Unknown 01/03/2024 8:16 AM EDT 01/03/2024 11:32 AM EDT us Chery Nicole SAND BLASTER LAB BLOOD ORDERABLES Final Res ult Performing Organization Address City/[facility]/ZIP Co de Phone Number [facility] [address] [place] [phone] from Last 3 Months or Most Recently Relevant to Health Maintenance Insurance [facility] C3 Care Teams Transliterator Relationship Specialty Start Date End Date Chery Nicole FNP [address] [place] [phone] PCP - General Family Medicine 01/07/22
--- OUTSIDE RECORDS SUMMARY | 2024-09-19 09:20 | XMS_ITS | Encounter Summary ---
Author Organization [employer] Address [address] [place] [address] [address] [address] Care Team Providers Care Livestock Feeder Name Role Phone Chery Nicole Primary Care Provider [phone] Encounter Details Date Type Department Care Team (Late st Contact Info) Description 07/15/2022 Orders Only [facility] [address] [place] [address] Kitty Manzano LPN Social History Tobacco Use Types Packs/Day Years [...] Description 09/28/2024 9:00 AM EDT Procedure Visit [facility] [address] [place] [address] Yumiko Morales CNM [address] [place] [address] 11/24/2024 8:45 AM EDT Office Visit [facility] [address] [place] [address] Chery Nicole FNP [address] [place] [address] 01/01/2025 3:15 PM EDT Office Visit [facility] [address] [place] [address] Gina Stringer, OD [address] [place] [address] documented as of this encounter Visit Diagnoses Not on filedocumented in this encounter Care Teams Livestock Feeder Relationship Specialty Start Date End Date Chery Nicole FNP [address] [place] [phone] PCP - General Family Medicine 01/07/22 documented as of this encounter
== END 2024-09-19 08:48 | disposition home or self-care (01) ==
LOC: HO.NEURO 08:47
PROVIDERS: PCP Registered Nurse; Visit Provider Registered Nurse
DX: R20.0 Anesthesia of skin (principal); R20.2 Paresthesia of skin
CPT/HCPCS: 95886; 95911

== ENCOUNTER 2024-09-28 09:29 | Outpatient (REF) | payer MEDICAID, SELFPAY ==
--- OUTSIDE RECORDS SUMMARY | 2024-09-28 10:15 | XMS_ITS | Encounter Summary ---
Author Organization [employer] Address [address] [facility] [address], [place] [address] Care Team Providers Care Outside Sales Engineer Name Role Phone Chery Nicole Primary Care Provider Reason for Visit * Reason Onset Date Comments chartprep 09/27/2024 Encounter Details Date Type Department Care Team ([facility] Contact Info) Description 09/27/2024 Telephone [facility] [address] [place] [address] Chery Nicole FNP [address] [place] [address] chartprep Social History Tobacco Use Types Packs/Day Years [...] with others, in a hotel, in a longterm, living outside on the street, on a [...] encounter Miscellaneous Notes * Telephone Encounter - Azul Horner [place] - 09/27/2024 11:02 AM EDT ..Chart Prep Labs: done Images: not applicable Vaccines due: Hep B Due and Flu Due Referrals: Not Applicable Screenings: PAP and Foot Exam Overdue care gaps: Disability and Oral Health documented in this encounter Plan of Treatment Upcoming Encounters Date Type Department Care Team (Late st Contact Info) Description 11/24/2024 8:45 AM EDT Office Visit [facility] [address] [place] [address] Chery iNcole FNP [address] [place] [address] 01/01/2025 3:15 PM EDT Office Visit [facility] [address] [place], [place] [phone] Gina Stringer, OD [address] [place] [address] documented as of this encounter Visit Diagnoses Not on filedocumented in this encounter Additional Health Concerns Assessment Noted Time PHQ-9 Depression Total Score: 11 024 10:16 AM EDT documented as of this encounter Care Teams Outside Sales Engineer Relationship Specialty Start Date End Date Chery Nicole FNP [address] [place] [address] PCP - General Family Medicine 01/07/22 documented as of this encounter
--- OUTSIDE RECORDS SUMMARY | 2024-09-28 10:15 | XMS_ITS | Encounter Summary ---
Author Organization [employer] Address [address] [facility] [address] [address] [place] [address] Care Team Providers Care Price Checker Name Role Phone Chery Nicole ROBIN Primary Care Provider [phone] Encounter Details Date Type Department Care Team (Latest Contact Info) Description 09/28/2024 Travel Social History Tobacco Use Types Packs/Day Years [...] with others, in a hotel, in a mcc, living outside on the street, on a [...] Description 11/24/2024 8:45 AM EDT Office Visit [facility] [address] [place] [address] Chery Nicole FNP [address] [place] [address] 01/01/2025 3:15 PM EDT Office Visit [facility] [address] [place] [address] TarkaGina, OD [address] [place] [address] documented as of this encounter Visit Diagnoses Not on filedocumented in this encounter Additional Health Concerns Assessment Noted Time PHQ-9 Depression Total Score: 11 024 10:16 AM EDT documented as of this encounter Care Teams Price Checker Relationship Specialty Start Date End Date Chery Nicole FNP [address] [place] [address] PCP - General Family Medicine 01/07/22 documented as of this encounter
--- OUTSIDE RECORDS SUMMARY | 2024-09-28 10:15 | XMS_ITS | Clinical Summary ---
Author Organization [employer] Address [address] 7 [place] [address] Care Team Providers Care Shotgun Shell Loading Machine Operator Name Role Phone ChadwickChery vickers ROBIN Primary Care Provider [phone] Allergies Active Allergy Reactions Criticality Noted Date [...] 23 Active Blood Glucose Monitoring Suppl (FreeStyle Lind Lite) w/Device kitIndications:T ype 2 diabetes 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 complication, without long-term current use of insulin ([facility]) TEST BLOOD SUGAR TWICE DAILY 1 kit 11/26/19 24 Active FREESTYLE LITE test stripIndications :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, without long-term current use of insulin ([facility]) Use to check blood sugar twice daily [...] kit 1 each 2 times daily. Call [facility] if BP readings are > 140/80 1 [...] nutrition and physical activity interventions Tx with Wegovy 2023 with good response Baseline weight: 147kg Today's weight: 147kg Reports regained weight that she had lost d/t being w/o medication. Will re- submit PA for Zepbound. Assessment & Plan (03/27/2024 5:46 PM EST): Encouraged to continue with nutrition and physical activity interventions 01/03/24: Wegovy was approved PA#[id number]. Exp: 07/05/24. 0.25mg dose started Jan 2024. Reviewed med safety and SE Assessment & Plan (03/19/2024 4:01 PM EST): Encouraged to continue with nutrition and physical activity interventions 01/03/24: Wegovy was approved PA#[id number]. Exp: 07/05/24. 0.25mg dose started Jan 2024. Reviewed med safety and SE Assessment & Plan (02/24/2024 3:29 PM EDT): Encouraged to continue with nutrition and physical activity interventions 01/03/24: Wegovy was approved PA#[id number]. Exp: 07/05/24. Plan to start 0.25mg subcutaneous [...] schedule Last PE: 02/04/24 OPH: LEANN at [facility] in Dec 2022. No diabetic [...] on 01/03/24 Eye exam: Dec 2022 at [facility] Dental: due PNA (PPSV, then [...] due Eye exam: appt November 2022 at [facility] Dental: due PNA (PPSV, then [...] pending Eye exam: appt November 2022 at [facility] Dental: due PNA (PPSV, then [...] 07/18/21 Eye exam: appt November 2022 at [facility] Dental: due PNA (PPSV, then [...] the following plan: provided contact info for [facility]-[phone], for OP and family therapy -No active SI/HI/thoughts of self harm, safety planning completed -Continue with lexapro 5mg nightly. Consider med adjustment and/or adjunct at follow up appt Encounters Date Type Department Care Team Description 09/28/2024 9:00 AM EDT Procedure Visit [facility] [address] [place] [phone] Yumiko Morales CNM Cervical cancer screening (Primary Dx); Menorrhagia with regular cycle; Need for prophylactic vaccination and inoculation against viral hepatitis; Encounter for immunization 09/28/2024 Travel 09/27/2024 Telephone [facility] [address] [place] [address] Chery Nicole FNP chartprep 09/18/2024 Telephone [facility] P[facility] [address] [place] [address] Stephanie Mercer MD Results 09/11/2024 Telephone [facility] [address] [place] [address] Stephanie Mercer MD Results; Medication Question 09/07/2024 Refill [facility] WALK-IN [address] [address] Aravind Meeks MD 09/01/2024 Telephone [facility] [address] [place] [address] Chery Nicole FNP PCP request 08/28/2024 10:00 AM EDT [facility] [address] [address] Lisbeth Ness MD Acute conjunctivitis of right eye, unspecified acute conjunctivitis type (Primary Dx); Essential hypertension 08/25/2024 Telephone [facility] [address] [place] [address] Chery Nicole FNP Results 08/23/2024 Telephone [facility] [address] [place] [address] Chery Nicole FNP Prior Authorization 08/22/2024 [facility] Health Information Management [address] [place] [address] Chery Nicole FNP EMG ORDER 08/21/2024 11:15 AM EDT Office Visit [facility] [address] [place] [address] Chery Nicole FNP Microcytic anemia (Primary Dx); 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, without long-term current use of insulin ([facility]); Class 3 severe obesity with body mass index (BMI) of 50.0 to 59.9 in adult, unspecified obesity type, unspecified whether serious comorbidity present; Numbness and tingling in both hands; Essential hypertension 08/21/2024 Travel 08/18/2024 11:30 AM EDT Office Visit [facility] OPTOMETRY [address] [place] [address] Edvin, Ester, OD Presbyopia (Primary Dx) 08/17/2024 Telephone [facility] [address] [place] [address] Chery Nicole FNP Chart Prep 08/02/2024 Telephone [facility] [address] [place] [address] Aravind Meeks MD 07/31/2024 9:20 AM EDT Office Visit [facility] [address] [place] [address] Aravind Meeks MD Influenza-like symptoms (Primary Dx); Essential hypertension 07/28/2024 Population Health Risk Score [facility] () Department [address] [place] [phone] Provider, Population Health Generic 07/07/2024 Telephone [facility] [address] [place] [address] Chery Nicole FNP No Show 07/06/2024 Telephone [facility] [address] [place] [address] Elliot Matos MA Chart Prep from Last 3 Months Immunizations Immunization Administration Dates Next Due Hep B, adult 09/28/2024,02/04/2024 Influenza injectable quadriv alent preservative free 04/26/2023 MMR 03/06/2024 Moderna Covid-19 Vaccine 12+ 07/03/2021 Moderna Covid-19 Vaccine 6+ Bivalent 07/22/2022 Pfizer Covid-19 Vaccine 12+ 03/06/2024, 1,06/06/2020 Pneumococcal Conjugate PCV 20 09/14/2022 Tdap 09/14/2022 Family History Medical History Relation Name Comments Diabetes Father Hypertension Father Lung cancer Maternal Grandfather Breast cancer Neg Hx Colon cancer Neg Hx Ovarian cancer Neg Hx Relation Name Status Comments Father Maternal Grandfather [...] with others, in a hotel, in a detention, living outside on the street, on a [...] Q2 Not on file 02/04/2024 Comments No Intention Date Recorded No desire to become (finding) 0 09/28/2024 Sex and Gender Information Value Date Recorded Sex Assigned at Female 03/16/2022 10:40 AM EDT Legal Sex Female 10:40 AM EDT Gender Identity Female 03/16/2022 10:40 AM EDT Sexual Orientation Straight 03/16/2022 10 :40 AM EDT Last Filed Vital Signs Vital Sign Reading Time Taken Comments Blood Pressure 163/97 09/28/2024 9:05 AM EDT Pulse 72 09/28/2024 9:05 AM EDT Temperature 36.3 ??C (97.4 ??F) 09/28/2024 9:05 AM ED T Respiratory Rate 16 09/28/2024 9:05 AM EDT Oxygen Saturation 98% 08/28/2024 9:45 AM EDT Inhaled Oxygen Concentration - - Weight 146 kg (321 lb 6.4 oz) 09/28/2024 9:05 AM EDT Height 170.2 cm (5' 7 ) 09/28/2024 9:05 AM EDT Body Mass Index 50.34 09/28/2024 9:05 AM EDT Plan of Treatment Upcoming Encounters Date Type Department Care Team (Late st Contact Info) Description 11/24/2024 8:45 AM EDT Office Visit [facility] MED & PEDS [address] [place] [address] Chery Nicole FNP [address] [place], [place] [phone] 01/01/2025 3:15 PM EDT Office Visit [facility] OPTOMETRY [address] [place], [place] [phone] Gina Stringer, OD [address] [place], [place] [phone] Health Maintenance Due Date Last Done Comments Diabetes: Urine Protein Screening 2007 Pap Smear 2009 Cervical Cancer Screening 2018 HPV/Cotest 2018 Influenza Vaccine (#1) 2024 04/26/2023 Diabetes: Hemoglobin A1C 11/20/2024 025, 02/04/2024, 11/25/2023, Additional history exists Hepatitis B Vaccines (3 of 3 - 19+ 3-dose series) 11/23/2024 09/28/2024, 02/04/2024 Diabetes: Foot Exam 11/24/2024 11/25/2023 Lipid Panel 01/02/2025 01/03/2024, 04/16, 07/18/2021 Alcohol/Substance Use Screening 02/03/2025 02/04/2024 Depression Screening 02/03/2025 02/04/2024, 02/04/20 24 SDOH Screening 02/03/2025 02/04/2024 Family Planning (PISQ) 09/28/2025 09/28/2024 Tobacco Screening 09/28/2025 09/28/2024 Eye Exam 12/29/2025 12/30/2023, 12/15, 12/30/2023, Additional [...] patient's age to complete this topic Meningococcal B Vaccine Aged Out No l onger eligible based on patient's age to complete [...] complication, without long-term current use of insulin ([facility]) POCT GLUCOSE Routine 08/21/2024 11:51 AM EDT 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, without long-term current use of insulin ([facility]) POCT RAPID STREP A Routine 07/31/2024 9: [...] 25-Hydroxy, Total, Immunoassay (09/07/2024 11:34 AM EDT) [facility] Vitamin D 25-OH Total 12.9(L) >30 ng/mL [facility] Comment: Health Based Reference Values*< 20 ??ng/mL ??[id number] ng/mL ??Insufficient> 30 ??ng/mL ??Sufficient*Patti PHILIP. N [...] 09/07/2024 2:06 PM EDT us Chery Nicole [facility] BLOOD ORDERABLES Final Res ult [facility] [address], [place] [phone] * (ABNORMAL) CBC auto differential (09/07/2024 11:34 AM EDT) White Blood Count 6.8 4.8 - 10.8 X10*3/uL [facility] Red Blood Count 4.55 4.20 - 5.50 X10*6/uL [facility] Hemoglobin 9.9(L) 12.0 - 16.0 g/dl [facility] Hematocrit 32.9(L) 37.0 - 47.0 % [facility] Mean Corpuscular Volume 72.3(L) 80.0 - 98.0 fL [facility] Mean Corpuscular Hemoglobin 21.8(L) 27.0 - 33.0 pg [facility] Mean Corpuscular HGB Conc 30.1(L) 31.0 - 35.0 g/dl [facility] Red Cell Distribution Width 18.4(H) 11.0 - 16.0 % [facility] Platelet Count 172 160 - 400 X10*3/uL [facility] Neutrophils Percent Auto 67.9 45 - 73 % [facility] Imm Gran Pct Auto 0.3 0.0 - 0.4 % [facility] Lymphocytes Percent Auto 25.0 20 - 40 % [facility] Monocytes Percent Auto 5.8 2 - 11 % [facility] Eosinophils Percent Auto 0.7 0 - 4 % [facility] Basophils Percent Auto 0.3 0 - 2 % [facility] NRBC Pct Auto 0.0 0.0 - 0.2 /100WBC [facility] Neutrophils Absolute Auto 4.6 2.0 - 8.3 x10*3/uL [facility] Imm Gran Abs Auto 0.02 0.00 - 0.03 X10*3/uL [facility] Lymphocytes Absolute Auto 1.7 1.2 - 4.9 X10*3/uL [facility] Monocytes Absolute Auto 0.4 0.1 - 1.2 X10*3/uL [facility] Eosinophils Absolute Auto 0.1 0.0 - 0.4 X10*3/uL [facility] Basophils Absolute Auto 0.0 0.0 - 0.2 X10*3/uL [facility] NRBC Abs Auto 0.000 0.0 - 0.012 X10*3/uL [facility] Blood Venous blood specimen / Unknown 09/07/2024 11:34 AM EDT 09/07/2024 2:08 PM EDT us Chery Nicole [facility] LAB BLOOD ORDERABLES Final Res ult Performing Organization Address [facility] Co de Phone Number [facility] [address] [place] [phone] * (ABNORMAL) Iron And Total Iron Binding Capacity (09/07/2024 11:34 AM EDT) Iron 26(L) 30 - 160 mcg/dL [facility] Total Iron Binding Capacity 432(H) 228 - 428 mcg/dL [facility] Percent Iron Saturation 6(L) 15 - 50 % [facility] Unsaturated Iron Binding 406 ug/dL [facility] Blood Venous blood specimen / Unknown 09/07/2024 11:34 AM EDT 09/07/2024 2:06 PM EDT Chery Nicole [employer] LAB BLOOD ORDERABLES Final Res ult Performing Organization Address [facility]/ZIP Co de Phone Number [facility] [address] [place] [phone] * Ferritin (09/07/2024 11:34 AM EDT) Ferritin 21 10 - 122 ng/mL [facility] Blood Venous blood specimen / Unknown 09/07/2024 11:34 AM EDT 09/07/2024 2:06 PM EDT us Chery Nicole [facility] BLOOD ORDERABLES Final Res ult [facility] [address] [place] [phone] * (ABNORMAL) POCT HGB A1C (08/21/2024 11:51 AM EDT) [facility] Hemoglobin A1C 7.4(A) 4.0 - 6.0 % QC Media Lot # [id number] Lot# Expiration Date Blood 08/21/2024 11:5 1 AM EDT us Chery Nicole [employer] POINT OF CARE TEST ENTER/EDIT ORDERABLES Final Result * (ABNORMAL) POCT Glucose (08/21/2024 11:51 AM EDT) [facility] Glucose Blood, POC 217(A) 60 - 200 mg/dL QC Media Lot # [id number] Lot# Expiration Date 73,025 Blood Capillary blood specimen / Unknown 08/21/2024 11:51 AM EDT Chery Nicole [employer] POINT OF CARE TEST ENTER/EDIT ORDERABLES Final Result * Influenza B (ID NOW Rapid Molecular) (07/31/2024 9:29 AM EDT) [facility] Influenza B Negative Negative, Indeterminate [facility] Swab 07/31/2024 9:29 AM EDT Aravind Meeks MD POINT OF CARE TEST ENTER/EDIT OR DERABLES Final Result [facility] [address] [place] [phone] * Influenza A (ID NOW Rapid Molecular) (07/31/2024 9:29 AM EDT) [facility] Influenza A Negative Negative, Indeterminate [facility] Swab 07/31/2024 9:29 AM EDT us Aravind Meeks MD POINT OF CARE TEST ENTER/EDIT OR DERABLES Final Result [facility] [address] [place] [phone] * POCT Rapid COVID Ag (07/31/2024 9:29 AM EDT) [facility] Rapid COVID Ag Negative Swab 07/31/2024 9:29 AM EDT Aravind Meeks MD POINT OF CARE TEST ENTER/EDIT OR DERABLES Final Result * POCT rapid strep A manually resulted (07/31/2024 9:29 AM EDT) [facility] Rapid Strep A Screen Negative Negative, None Detected Swab 07/31/2024 9:29 AM EDT Result [facility] us Aravind Meeks MD POINT OF CARE TEST ENTER/EDIT OR DERABLES Final Result * Hepatitis C Viral RNA, Quantitative, Real-Time PCR (01/03/2024 8:16 AM EDT) [facility] Hepatitis C Viral Load <15 NOT DETECTED NOT DETECTED IU/mL [facility] HCV Log PCR <1.18 NOT DETECTED NOT DETECTED Log IU/mL [facility] Comment:For additional infor mation, please refer tohttp://education.Sponto/faq/JPP80r8(This link is being provided for informational/educational purposes only.)THIS TEST WAS PERFORMED AT:[facility] [place] [phone] CALLAWAY MD Blood 01/03/2024 8:16 AM EDT 01/03/2024 11:32 AM EDT us Chery Nicole [employer] LAB BLOOD ORDERABLES Final Res ult Performing Organization Address [facility]/ZIP Co de Phone Number [facility] [address] [place] [phone] * HIV-1/2 Antigen and Antibodies, Fourth Generation, with Reflexes (01/03/2024 8:16 AM EDT) HIV AB/AG Nonreactive Nonreactive [facility] Comment:HIV-1 p24 Ag and/or HIV-1/HIV-2 Ab not detected.A test result that is nonreactive does not exclude thepossibility of exposure to or infection with HIV-1 and/orHIV-2. Nonreactive results in this assay for individualswith prior exposure to HIV-1 and/or HIV-2 may be due toantigen and antibody levels that are below the limit ofdetection of this assay.The [employer] HIV Ag/Ab Combo assay result andsupplemental assay results should be interpreted inconjunction with the patient's clinical presentation,history and other laboratory results. If the results areinconsistent with clinical evidence, additional testing issuggested to confirm the result. Blood Venous blood specimen / Unknown 01/03/2024 8:16 AM EDT 01/03/2024 11:32 AM EDT Chery Nicole [facility] BLOOD ORDERABLES Final Res ult Performing Organization Address [facility] Co de Phone Number [facility] [address] [place] [phone] * (ABNORMAL) Lipid Panel, Standard (01/03/2024 8:16 AM EDT) Triglycerides 98 <150 mg/dL [facility] Comment:Desirable Triglyceri de: less than 150 mg/dLBorderline High Triglyceride 150-199 mg/dLHigh Triglyceride: 200-499 mg/dLVery High Triglyceride: greater than or equal to 5OO mg/dL Cholesterol 144 <200 mg/dL [facility] Comment:Desirable Cholestero l: less than 200 mg/dLBorderline High Cholesterol: 200-239 mg/dLHigh Cholesterol: greater than 239 mg/dL LDL Cholesterol Calculated 88 <100 mg/dL [facility] Comment:Desirable LDL: less than 100 mg/dLNear Optimal/Above Optimal LDL: 110- 129 mg/dLBorderline High LDL: 130-159 mg/dLHigh LDL: 160-189 mg/dLVery High LDL: greater than or equal to 190 mg/dL HDL Cholesterol 37(L) >40 mg/dL [facility] Comment:Desirable HDL: great er than 40 mg/dL Note: This HDL assay may give artificially low results in patients with liver disease. Blood Venous blood specimen / Unknown 01/03/2024 8:16 AM EDT 01/03/2024 11:32 AM EDT us Chery Nicole [facility] LAB BLOOD ORDERABLES Final Res ult [facility] [address] [place] [phone] from Last 3 Months or Most Recently Relevant to Health Maintenance Insurance [address] [place] [address] STANDARD Care Teams Shotgun Shell Loading Machine Operator Relationship Specialty Start Date End Date Chery Nicole FNP [address] [place] [phone] PCP - General Family Medicine 01/07/22
--- OUTSIDE RECORDS SUMMARY | 2024-09-28 10:15 | XMS_ITS | Encounter Summary ---
Author Organization [employer] Address [address] [place] [address] [place], [place] [address] Care Team Providers Care Director Of Psychiatry Name Role Phone Chery Nicole Primary Care Provider [phone] Reason for Visit * Reason Onset Date Comments Letter for School/Work 07/01/2022 Encounter Details Date Type Department Care Team (Late st Contact Info) Description 07/01/2022 Telephone [facility] [address] [place] [address] Chery Nicole FNP [address] [place] [address] Letter for School/Work Social History Tobacco Use [...] Please update letter. Please contact pt at [phone] documented in this encounter Plan of Treatment Upcoming Encounters Date Type Department Care Team (Late st Contact Info) Description 11/24/2024 8:45 AM EDT Office Visit [facility] MED & PEDS [address] [place], [place] [phone] Chery Nicole FNP [address] [place] [address] 01/01/2025 3:15 PM EDT Office Visit [facility] OPTOM[facility]RY [address] [place] [address] Gina Stringer, OD [address] [place] [address] documented as of this encounter Visit Diagnoses Not on filedocumented in this encounter Care Teams Director Of Psychiatry Relationship Specialty Start Date End Date Chery Nicole FNP [address] [place] [phone] PCP - General Family Medicine 01/07/22 documented as of this encounter
--- OUTSIDE RECORDS SUMMARY | 2024-09-28 10:15 | XMS_ITS | Encounter Summary ---
Author Organization [employer] Address [address] [place] [address] [address] Care Team Providers Care Decay Control Operator Name Role Phone Chery Nicole Primary Care Provider [phone] Encounter Details Date Type Department Care Team (Late st Contact Info) Description 07/15/2022 Orders Only [facility] & PEDS [address] [place] [address] Kitty Manzano LPN Social History Tobacco Use [...] Description 11/24/2024 8:45 AM EDT Office Visit [facility] MED & PEDS [address] [place] [address] Chery Nicole FNP [address] [place] [address] 01/01/2025 3:15 PM EDT Office Visit [facility] OPTOMETRY [address] [place] [address] TarkaGina, OD [address] [place] [address] documented as of this encounter Visit Diagnoses Not on filedocumented in this encounter Care Teams Decay Control Operator Relationship Specialty Start Date End Date Chery Nicole FNP [address] [place] [address] PCP - General Family Medicine 01/07/22 documented as of this encounter
--- OUTSIDE RECORDS SUMMARY | 2024-09-28 10:15 | XMS_ITS | Encounter Summary ---
Author Organization [employer] Address [address] [place] [address] [address] Care Team Providers Care Stove Polisher Name Role Phone Chery Nicole Primary Care Provider [phone] Reason for Visit * Reason Onset Date Comments Letter for School/Work 05/14/2022 Encounter Details Date Type Department Care Team ([facility] st Contact Info) Description 05/14/2022 Telephone [facility] [address] [place] [address] Chery Nicole FNP [address] [place] [address] Letter for School/Work Social History Tobacco Use [...] s ignature. * Telephone Encounter - Daren Pan - 05/14/2022 12:51 PM EST Tc from pt requesting a letter stating pt needs a dog to help her with anxiety Please contact pt at [phone] documented in this encounter Plan of Treatment Upcoming Encounters Date Type Department Care Team (Late st Contact Info) Description 11/24/2024 8:45 AM EDT Office Visit [facility] MED & PEDS [address] [place] [address] Chery Nicole FNP [address] [place] [address] 01/01/2025 3:15 PM EDT Office Visit [facility] OPTOMETRY [address] [place] [address] TarkaGina, OD [address] [place] [address] documented as of this encounter Visit Diagnoses Not on filedocumented in this encounter Care Teams Stove Polisher Relationship Specialty Start Date End Date Chery Nicole FNP [address] [place] [address] PCP - General Family Medicine 01/07/22 documented as of this encounter
--- OUTSIDE RECORDS SUMMARY | 2024-09-28 10:15 | XMS_ITS | Encounter Summary ---
Author Organization [employer] Address [address] [place] [address] [address] [place] [address] Care Team Providers Care Extrusion Engineer Name Role Phone Chery Nicole Primary Care Provider [phone] Reason for Visit * Reason Comments Med Refill Encounter Details Date Type Department Care Team ([facility] Contact Info) Description 02/15/2024 Refill [facility] MED & PEDS [address] [place], [place] [phone] Chery Nicole FNP [address] [place] [address] Social History Tobacco Use Types Packs/Day Years [...] with others, in a hotel, in a residential, living outside on the street, on a [...] Description 11/24/2024 8:45 AM EDT Office Visit [facility] MED & PEDS [address] [place] [address] Chery Nicole FNP [address] [place] [address] 01/01/2025 3:15 PM EDT Office Visit [facility] OPTOMETRY [address] [place] [address] Tarka, Gina, OD [address] [place] [address] documented as of this encounter Visit Diagnoses Not on filedocumented in this encounter Additional Health Concerns Assessment Noted Time PHQ-9 Depression Total Score: 11 024 10:16 AM EDT documented as of this encounter Care Teams Extrusion Engineer Relationship Specialty Start Date End Date Chery Nicole FNP [address] [place] [address] PCP - General Family Medicine 01/07/22 documented as of this encounter
--- OUTSIDE RECORDS SUMMARY | 2024-09-28 10:15 | XMS_ITS | Encounter Summary ---
Author Organization [employer] Address [address] [place] [address] Care Team Providers Care Structural Engineering Project Manager Name Role Phone Chery Nicole Primary Care Provider [phone] Reason for Referral * Imaging (Urgent) - Authorized Specialty Diagnoses / Procedures Referred By Contac t Referred To Contact Radiology Diagnoses Menorrhagia with regular cycle Procedures Us Pelvis complete Yumiko Morales CNM [address] [place] [address] Phone: tel: fax: [facility] [address] [place] [address], [address] [address] Phone: tel: fax: Referral ID Status Reason Start Date Expiration Date V isits Requested Visits Authorized [id number] Authorized 09/28/2024 09/28/2025 1 1 * Imaging (Urgent) - Authorized Specialty Diagnoses / Procedures Referred By Contac t Referred To Contact Radiology Diagnoses Menorrhagia with regular cycle Procedures US Pelvis Transvaginal Yumiko Morales CNM [address] [place] [address] Phone: tel: fax: [facility] [address] [place] [address], [address] [address] Phone: tel: fax: Referral ID Status Reason Start Date Expiration Date V isits Requested Visits Authorized [id number] Authorized 09/28/2024 09/28/2025 1 1 Reason for Visit * Reason Comments Gynecologic Exam Encounter Details Date Type Department Care Team (Latest Contact Info) Description 09/28/2024 9:00 AM EDT Procedure Visit [facility] MEDICINE [address] [place], [place] [phone] Yumiko Morales CNM [address] [place] [address] Cervical cancer screening (Primary Dx); Menorrhagia with regular cycle; Need for prophylactic vaccination and inoculation against viral hepatitis; Encounter for immunization Social History Tobacco Use Types Packs/Day Years [...] with others, in a hotel, in a penitentiary, living outside on the street, on a [...] AM EDT documented as of this encounter Last Filed Vital Signs Vital Sign Reading Time Taken Comments Blood Pressure 163/97 09/28/2024 9:05 AM EDT Pulse 72 09/28/2024 9:05 AM EDT Temperature 36.3 ??C (97.4 ??F) 09/28/2024 9:05 AM ED T Respiratory Rate 16 09/28/2024 9:05 AM EDT Oxygen Saturation - - Inhaled Oxygen Concentration - - Weight 146 kg (321 lb 6.4 oz) 09/28/2024 9:05 AM EDT Height 170.2 cm (5' 7 ) 09/28/2024 9:05 AM EDT Body Mass Index 50.34 09/28/2024 9:05 AM EDT documented in this encounter Progress Notes * Yumiko Morales CNM - 09/28/2024 9:00 AM EDT Subjective Patient ID: Kitty De Jesus is a 34 y.o. female who presents for pap Last visit with ma 2022 for breast symptoms. Imaging ordered, no results in chart. She reports breast pain fully resolved, but doesn't think she ever had imaging. No breast symptoms today, no family history of breast/ [employer] cancer. No pap on file. She thinks her last pap was a few years ago, no priorabnormal. Monthly menses x 8-14 days. Prolonged bleeding began about 13 years ago. Cramping with menses responds to OTC medication. Previous to that, had menses x 4-5 days. BP elevated today, hasn't taken medication yet, but she has at home. Partner Bob in room for visit with Kitty's consent. Has tubal ligation, happy with method. Review of Systems HENT: Negative for sneezing. Respiratory: Negative for shortness of breath. Cardiovascular: Negative for chest pain. Genitourinary: Positive for menstrual problem. Negative for dyspareunia, dysuria, frequency, genital sores, hematuria, pelvic pain, urgency, vaginal bleeding, vaginal discharge and vaginal pain. No abnormal pap, no breast pain, no breast mass, no nipple discharge, no incontinence Neurological: Negative for headaches. Hematological: Does not bruise/bleed easily. Objective BP (!) 163/97 (BP Location: Left arm, Patient Position: Sitting, BP Cuff Size: Large adult long) Pulse 72 Temp 97.4 ??F (36.3 ??C) (Temporal) Resp 16 Ht 5' 7 (1.702 m) Wt 321 lb 6.4 oz (146 kg) LMP 09/15/2024 (Exact Date) BMI 50.34 kg/m?? Physical Exam Constitutional: Appearance: Normal appearance. Chest: Breasts: Right: Normal. No swelling, bleeding, inverted nipple, mass, nipple discharge, skin change or tenderness. Left: Normal. No swelling, bleeding, inverted nipple, mass, nipple discharge, skin change or tenderness. Genitourinary: General: Normal vulva. Labia: Right: No rash, tenderness, lesion or injury. Left: No rash, tenderness, lesion or injury. Vagina: Normal. No signs of injury and foreign body. No vaginal discharge, erythema, tenderness, bleeding or lesions. Cervix: No cervical motion tenderness, discharge, friability, lesion, erythema, cervical bleeding or eversion. Uterus: Normal. Not enlarged and not tender. Adnexa: Right adnexa normal and left adnexa normal. Right: No mass, tenderness or fullness. Left: No mass, tenderness or fullness. Lymphadenopathy: Upper Body: Right upper body: No supraclavicular or axillary adenopathy. Left upper body: No supraclavicular or axillary adenopathy. Neurological: Mental Status: She is alert. Psychiatric: Mood and Affect: Mood normal. Behavior: Behavior normal. Assessment/Plan Diagnoses and all orders for this visit: Cervical cancer screening - Pap Smear Cotest 5 y if normal. Will contact with results and plan. No breast imaging results in [facility] [employer]. Normal CBE today, no current breast symptoms. May defer breast imaging for now. Report breast symptoms. Menorrhagia with regular cycle - US Pelvis Transvaginal; Future - Us Pelvis complete; Future - TSH W/Reflex to FT4; Future Anemic, on iron. Latest Reference Range & Units 09/07/24 11:34 Iron 30 - 160 mcg/dL 26 (L) Ferritin 10 - 122 ng/mL 21 Red Blood Count 4.20 - 5.50 X10*6/uL 4.55 Hemoglobin 12.0 - 16.0 g/dl 9.9 (L) Hematocrit 37.0 - 47.0 % 32.9 (L) Mean Corpuscular Volume 80.0 - 98.0 fL 72.3 (L) Mean Corpuscular Hemoglobin 27.0 - 33.0 pg 21.8 (L) Mean Corpuscular HGB Conc 31.0 - 35.0 g/dl 30.1 (L) Red Cell Distribution Width 11.0 - 16.0 % 18.4 (H) Platelet Count 160 - 400 X10*3/uL 172 Percent Iron Saturation 15 - 50 % 6 (L) Will check TSH and ultrasound. Will likely need referral to [employer] for Endometrial biopsy afterwards. Need for prophylactic vaccination and inoculation against viral hepatitis Encounter for immunization - HEPATITIS B VACCINE ADULT 20 yrs + Hep B #2 today. 3rd dose 4-6 months. Elevated BP today, asymptomatic. Take medication FROY. Has BP cuff at home. Advised to check BP daily, call office if greater than or equal to 140/90. Seek care urgently if chest pain, SOB, severe headache. documented in this encounter Plan of Treatment Upcoming Encounters Date Type Department Care Team ([facility] st Contact Info) Description 11/24/2024 8:45 AM EDT Office Visit [facility] MED & PEDS [address] [place] [address] Chery Nicole FNP [address] [place], [place] [phone] 01/01/2025 3:15 PM EDT Office Visit [facility] OPTOMETRY [address] [place] [address] Gina Stringer, OD [address] [place] [address] Scheduled Orders Name Type Priority Associated Diagnoses Order Schedule Pap Smear Pathology and Cytology Routine Cervical cancer screening Ordered: 09/28/2024 US Pelvis Transvaginal Imaging Urgent Menorrhagia with regular cycle Expected: 09/28/2024, Expires: 09/28/2025 Us Pelvis complete Imaging Urgent Menorrhagia with regular cycle Expected: 09/28/2024, Expires: 09/28/2025 TSH W/Reflex to FT4 Lab Routine Menorrhagia with regular cycle Expected: 09/28/2024 (Approximate), Expires: 09/28/2025 documented as of this encounter Visit Diagnoses Diagnosis Cervical cancer screening- Primary Screening for malignant neoplasm of the cervix Menorrhagia with regular cycle Need for prophylactic vaccination and inoculation against viral hepatitis Encounter for immunization documented in this encounter Additional Health Concerns Assessment Noted Time PHQ-9 Depression Total Score: 11 02/03/ 024 10:16 AM EDT documented as of this encounter Care Teams Structural Engineering Project Manager Relationship Specialty Start Date End Date Chery Nicole FNP [address] [place] [address] PCP - General Family Medicine 01/07/22 documented as of this encounter
[2024-09-28 12:22] LABS: TSH reflex Free T4 2.17 uIU/mL (0.32-4.0)
== END 2024-09-28 09:30 | disposition home or self-care (01) ==
LOC: HO.HHCL 09:29
PROVIDERS: Visit Provider Advanced Practice Midwife
DX: N92.0 Excessive and frequent menstruation with regular cycle (principal)
CPT/HCPCS: 36415; 84443

== ENCOUNTER 2024-09-28 16:32 | Outpatient (REF) | payer MEDICAID, SELFPAY ==
--- OUTSIDE RECORDS SUMMARY | 2024-09-28 16:34 | XMS_ITS | Encounter Summary ---
Author Organization [employer] Address [address] [place] [address], [place] [address] Care Team Providers Care Bender Machine Name Role Phone Chery Nicole Primary Care Provider [phone] Reason for Visit * Reason Onset Date Comments Letter for School/Work 07/01/2022 Encounter Details Date Type Department Care Team (Late st Contact Info) Description 07/01/[address] [facility] MEDICINE [address] [place] [address] Chery Nicole FNP [address] [place] [address] Letter for School/Work Social History Tobacco Use [...] Please update letter. Please contact pt at [phone] documented in this encounter Plan of Treatment Upcoming Encounters Date Type Department Care Team (Late st Contact Info) Description 11/24/2024 8:45 AM EDT Office Visit [facility] MED & PEDS [address] [place], [place] [phone] Chery Nicole FNP [address] [place] [address] 01/01/2025 3:15 PM EDT Office Visit [facility] OPTOMETRY [address] [place] [address] Gina Stringer, OD [address] [place] [address] documented as of this encounter Visit Diagnoses Not on filedocumented in this encounter Care Teams Bender Machine Relationship Specialty Start Date End Date Chery Nicole FNP [address] [place] [address] PCP - General Family Medicine 01/07/22 documented as of this encounter
--- OUTSIDE RECORDS SUMMARY | 2024-09-28 16:34 | XMS_ITS | Encounter Summary ---
Author Organization [facility] [employer] Address [address] [place] [address] [address] [address] Care Team Providers Care Senior Reactor Operator Name Role Phone Chery Nicole Primary Care Provider [phone] Encounter Details Date Type Department Care Team (Late st Contact Info) Description 07/15/2022 Orders Only [facility] MED & PEDS [address] [place] [address] Kitty Manzano LPN Social History Tobacco Use [...] Description 11/24/2024 8:45 AM EDT Office Visit [facility] MED & PEDS [address] [place] [address] Chery Niocle FNP [address] [place] [address] 01/01/2025 3:15 PM EDT Office Visit [facility] OPTOMETRY [address] [place] [address] TarkaGina, OD [address] [place] [address] documented as of this encounter Visit Diagnoses Not on filedocumented in this encounter Care Teams Senior Reactor Operator Relationship Specialty Start Date End Date Chery Nicole FNP [address] [place] [address] PCP - General Family Medicine 01/07/22 documented as of this encounter
--- OUTSIDE RECORDS SUMMARY | 2024-09-28 16:34 | XMS_ITS | Clinical Summary ---
Author Organization [employer] Address [address] [facility] 7 [place] [address] Care Team Providers Care Daily Sales Audit Clerk Name Role Phone ChadwickChery vickers ROBIN Primary Care Provider [phone] Allergies Active Allergy Reactions Criticality Noted Date [...] 23 Active Blood Glucose Monitoring Suppl (FreeStyle [place] Lite) w/Device kitIndications:T ype 2 diabetes 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 complication, without long-term current use of insulin ([facility]) TEST BLOOD SUGAR TWICE DAILY 1 kit 11/26/19 24 Active FREESTYLE LITE test stripIndications :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, without long-term current use of insulin ([facility]) Use to check blood sugar twice daily [...] kit 1 each 2 times daily. Call [facility] if BP readings are > 140/80 1 [...] physical activity interventions 01/03/24: Wegovy was approved PA#[id number]. Exp: 07/05/24. 0.25mg dose started Jan 2024. Reviewed med safety and SE Assessment & Plan (03/19/2024 4:01 PM EST): Encouraged to continue with nutrition and physical activity interventions 01/03/24: Wegovy was approved PA#[id number]. Exp: 07/05/24. 0.25mg dose started Jan 2024. Reviewed med safety and SE Assessment & Plan (02/24/2024 3:29 PM EDT): Encouraged to continue with nutrition and physical activity interventions 01/03/24: Wegovy was approved PA#[id number]. Exp: 07/05/24. Plan to start 0.25mg subcutaneous [...] schedule Last PE: 02/04/24 OPH: LEANN at [facility] in Dec 2022. No diabetic [...] on 01/03/24 Eye exam: Dec 2022 at [facility] Dental: due PNA (PPSV, then [...] due Eye exam: appt November 2022 at [facility] Dental: due PNA (PPSV, then [...] pending Eye exam: appt November 2022 at [facility] Dental: due PNA (PPSV, then [...] 07/18/21 Eye exam: appt November 2022 at [facility] Dental: due PNA (PPSV, then [...] the following plan: provided contact info for [facility]-[phone], for OP and family therapy -No active SI/HI/thoughts of self harm, safety planning completed -Continue with lexapro 5mg nightly. Consider med adjustment and/or adjunct at follow up appt Encounters Date Type Department Care Team Description 09/28/2024 9:00 AM EDT Procedure Visit [facility] [address] [place] [address] Yumiko Morales CNM Cervical cancer screening (Primary Dx); Menorrhagia with regular cycle; Need for prophylactic vaccination and inoculation against viral hepatitis; Encounter for immunization 09/28/2024 Travel 09/27/2024 Telephone [facility] [address] [place] [address] Chery Nicole FNP chartprep 09/18/2024 Telephone [facility] [address] [place] [address] Stephanie Mercer MD Results 09/11/2024 Telephone [facility] [address] [place] [address] Stephanie Mercer MD Results; Medication Question 09/07/2024 Refill [facility] [address] [address] Aravind Meeks MD 09/01/2024 Telephone [facility] [address] [place] [address] Chery Nicole FNP PCP request 08/28/2024 10:00 AM EDT [facility] [address] [address] Lisbeth Ness MD Acute conjunctivitis of right eye, unspecified acute conjunctivitis type (Primary Dx); Essential hypertension 08/25/2024 Telephone [facility] [address] [place] [address] Chery Nicole FNP Results 08/23/2024 Telephone [facility] [address] [place] [address] Chery Nicole FNP Prior Authorization 08/22/2024 [facility] Health Information Management [address] [place] [address] Chery Nicole FNP EMG ORDER 08/21/2024 11:15 AM EDT Office Visit [facility] [address] [place] [address] Chery Nicole FNP Microcytic anemia (Primary Dx); 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, without long-term current use of insulin ([facility]); Class 3 severe obesity with body mass index (BMI) of 50.0 to 59.9 in adult, unspecified obesity type, unspecified whether serious comorbidity present; Numbness and tingling in both hands; Essential hypertension 08/21/2024 Travel 08/18/2024 11:30 AM EDT Office Visit [facility] OPTOMETRY [address] [place] [address] Edvin, Ester, OD Presbyopia (Primary Dx) 08/17/2024 Telephone [facility] [address] [place] [address] Chery Nicole FNP Chart Prep 08/02/2024 Telephone [facility] [address] [place] [address] Aravind Meeks MD 07/31/2024 9:20 AM EDT Office Visit [facility] [address] [place] [address] Aravind Meeks MD Influenza-like symptoms (Primary Dx); Essential hypertension 07/28/2024 Population Health Risk Score [facility] () Department [address] [place] [phone] Provider, Population Health Generic 07/07/2024 Telephone [facility] [address] [place] [address] Chery Nicole FNP No Show 07/06/2024 Telephone [facility] [address] [place] [address] Elliot Matos MA Chart Prep from Last [...] Description 11/24/2024 8:45 AM EDT Office Visit [facility] MED [facility] PEDS [address] [place] [address] Chery Nicole FNP [address] [place], [place] [phone] 01/01/2025 3:15 PM EDT Office Visit [facility] OPTOMETRY [address] [place], [place] [phone] Gina Stringer, OD [address] [place], [place] [phone] Health Maintenance Due Date Last Done Comments [...] Procedure Name Priority Date/Time Associated Diagnosis Comments TSH W/REFLEX TO FT4 Routine 09/28/2024 9 :30 AM EDT Menorrhagia with regular cycle VITAMIN D,25-OH,TOTAL,IA Routine 09/07/2024 11:34 AM EDT Microcytic anemia IRON AND TOTAL IRON BINDING CAPACITY Routine 09/07/2024 11:34 AM EDT Microcytic anemia FERRITIN Routine 09/07/2024 11:34 AM EDT Microcytic anemia CBC WITH AUTO DIFFERENTIAL Routine 09/07/2024 11:34 AM EDT Microcytic anemia POCT GLYCATED HEMOGLOBIN, TOTAL Routine 08/21/2024 11:51 AM EDT 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, without long-term current use of insulin ([facility]) POCT GLUCOSE Routine 08/21/2024 11:51 AM EDT 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, without long-term current use of insulin ([facility]) POCT RAPID STREP A Routine 07/31/2024 9: [...] Recently Relevant to Health Maintenance Results * TSH W/Reflex to FT4 (09/28/2024 9:30 AM EDT) TSH reflex Free T4 2.17 0.32 - 4.0 uIU/mL [facility] Blood Venous blood specimen / Unknown 09/28/2024 9:30 AM EDT 09/28/2024 11:40 AM EDT Yumiko Morales [facility] LAB BLOOD ORDERABLES Yokasta crockett Result [facility] [address] [place] [phone] * (ABNORMAL) Vitamin D, 25-Hydroxy, Total, Immunoassay (09/07/2024 11:34 AM EDT) Vitamin D 25-OH Total 12.9(L) >30 ng/mL [facility] Comment: Health Based Reference Values*< 20 ??ng/mL ??Ndeitbpxn89-13 ng/mL ??Insufficient> 30 ??ng/mL ??Sufficient*Patti PHILIP. N [...] 09/07/2024 2:06 PM EDT us Chery Nicole IMMIGRATION INVESTIGATOR LAB BLOOD ORDERABLES Final Res ult [facility] [address] [place] [phone] * (ABNORMAL) CBC auto differential (09/07/2024 11:34 AM EDT) White Blood Count 6.8 4.8 - 10.8 X10*3/uL [facility] Red Blood Count 4.55 4.20 - 5.50 X10*6/uL [facility] Hemoglobin 9.9(L) 12.0 - 16.0 g/dl [facility] Hematocrit 32.9(L) 37.0 - 47.0 % [facility] Mean Corpuscular Volume 72.3(L) 80.0 - 98.0 fL [facility] Mean Corpuscular Hemoglobin 21.8(L) 27.0 - 33.0 pg [facility] Mean Corpuscular HGB Conc 30.1(L) 31.0 - 35.0 g/dl [facility] Red Cell Distribution Width 18.4(H) 11.0 - 16.0 % [facility] Platelet Count 172 160 - 400 X10*3/uL [facility] Neutrophils Percent Auto 67.9 45 - 73 % [facility] Imm Gran Pct Auto 0.3 0.0 - 0.4 % [facility] Lymphocytes Percent Auto 25.0 20 - 40 % [facility] Monocytes Percent Auto 5.8 2 - 11 % [facility] Eosinophils Percent Auto 0.7 0 - 4 % [facility] Basophils Percent Auto 0.3 0 - 2 % [facility] NRBC Pct Auto 0.0 0.0 - 0.2 /100WBC [facility] Neutrophils Absolute Auto 4.6 2.0 - 8.3 x10*3/uL [facility] Imm Gran Abs Auto 0.02 0.00 - 0.03 X10*3/uL [facility] Lymphocytes Absolute Auto 1.7 1.2 - 4.9 X10*3/uL [facility] Monocytes Absolute Auto 0.4 0.1 - 1.2 X10*3/uL [facility] Eosinophils Absolute Auto 0.1 0.0 - 0.4 X10*3/uL [facility] Basophils Absolute Auto 0.0 0.0 - 0.2 X10*3/uL [facility] NRBC Abs Auto 0.000 0.0 - 0.012 X10*3/uL [facility] Blood Venous blood specimen / Unknown 09/07/2024 11:34 AM EDT 09/07/2024 2:08 PM EDT us Chery Nicole IMMIGRATION INVESTIGATOR LAB BLOOD ORDERABLES Final Res ult [facility] [address] [place], [place] [phone] * (ABNORMAL) Iron And Total Iron Binding Capacity (09/07/2024 11:34 AM EDT) Iron 26(L) 30 - 160 mcg/dL [facility] Total Iron Binding Capacity 432(H) 228 - 428 mcg/dL [facility] Percent Iron Saturation 6(L) 15 - 50 % [facility] Unsaturated Iron Binding 406 ug/dL [facility] Blood Venous blood specimen / Unknown 09/07/2024 11:34 AM EDT 09/07/2024 2:06 PM EDT us Chery Nicole IMMIGRATION INVESTIGATOR LAB BLOOD ORDERABLES Final Res ult Performing Organization Address [facility]/ZIP Co de Phone Number [facility] [address] [place] [phone] * Ferritin (09/07/2024 11:34 AM EDT) Pathologist [facility] Ferritin 21 10 - 122 ng/mL [facility] Blood Venous blood specimen / Unknown 09/07/2024 11:34 AM EDT 09/07/2024 2:06 PM EDT Chery Nicole IMMIGRATION INVESTIGATOR LAB BLOOD ORDERABLES Final Res ult Performing Organization Address City/[facility] Co de Phone Number [facility] [address] [place] [phone] * (ABNORMAL) POCT HGB A1C (08/21/2024 11:51 AM EDT) [facility] Hemoglobin A1C 7.4(A) 4.0 - 6.0 % QC Media Lot # [id number] Lot# Expiration Date , Blood 08/21/2024 11:5 1 AM EDT us Chery Nicole IMMIGRATION INVESTIGATOR POINT OF CARE TEST ENTER/EDIT ORDERABLES Final Result * (ABNORMAL) POCT Glucose (08/21/2024 11:51 AM EDT) Pathologist [facility] Glucose Blood, POC 217(A) 60 - 200 mg/dL QC Media Lot # [id number] Lot# Expiration Date 732,025 Blood Capillary blood specimen / Unknown 08/21/2024 11:51 AM EDT Chery Nicole IMMIGRATION INVESTIGATOR POINT OF CARE TEST ENTER/EDIT ORDERABLES Final Result * Influenza B (ID NOW Rapid Molecular) (07/31/2024 9:29 AM EDT) [facility] Influenza B Negative Negative, Indeterminate [facility] Swab 07/31/2024 9:29 AM EDT us Aravind Meeks MD POINT OF CARE TEST ENTER/EDIT OR DERABLES Final Result Performing Organization Address [facility]/ZIP Co de Phone Number [facility] [address] [place] [phone] * Influenza A (ID NOW Rapid Molecular) (07/31/2024 9:29 AM EDT) [facility] Influenza A Negative Negative, Indeterminate [facility] Swab 07/31/2024 9:29 AM EDT Aravind Meeks MD POINT OF CARE TEST ENTER/EDIT OR DERABLES Final Result Performing Organization Address [facility] Co de Phone Number [facility] [address] [place] [phone] * POCT Rapid COVID Ag (07/31/2024 9:29 AM EDT) [facility] Rapid COVID Ag Negative Swab 07/31/2024 9:29 AM EDT us Aravind Meeks MD POINT OF CARE TEST ENTER/EDIT OR DERABLES Final Result * POCT rapid strep A manually resulted (07/31/2024 9:29 AM EDT) [facility] Rapid Strep A Screen Negative Negative, None Detected Swab 07/31/2024 9:29 AM EDT us Aravind Meeks MD POINT OF CARE TEST ENTER/EDIT OR DERABLES Final Result * Hepatitis C Viral RNA, Quantitative, Real-Time PCR (01/03/2024 8:16 AM EDT) Pathologist [facility] Hepatitis C Viral Load <15 NOT DETECTED NOT DETECTED IU/mL [facility] HCV Log PCR <1.18 NOT DETECTED NOT DETECTED Log IU/mL [facility] Comment:For additional infor julian, please refer [email or web address]/[email or web address](This link is being provided for informational/educational purposes only.)THIS TEST WAS PERFORMED AT:[employer] [place] [phone] CALLAWAY MD Blood 01/03/2024 8:16 AM EDT 01/03/2024 11:32 AM EDT Chery Nicole [facility] LAB BLOOD ORDERABLES Final Res ult [facility] [address] [place] [phone] * HIV-1/2 Antigen and Antibodies, Fourth Generation, with Reflexes (01/03/2024 8:16 AM EDT) Pathologist [facility] HIV AB/AG Nonreactive Nonreactive [facility] Comment:HIV-1 p24 Ag and/or HIV-1/HIV-2 Ab not detected.A test result that is nonreactive does not exclude thepossibility of exposure to or infection with HIV-1 and/orHIV-2. Nonreactive results in this assay for individualswith prior exposure to HIV-1 and/or HIV-2 may be due toantigen and antibody levels that are below the limit ofdetection of this assay.The [employer] HIV Ag/Ab Combo assay result andsupplemental assay results should be interpreted inconjunction with the patient's clinical presentation,history and other laboratory results. If the results areinconsistent with clinical evidence, additional testing issuggested to confirm the result. Blood Venous blood specimen / Unknown 01/03/2024 8:16 AM EDT 01/03/2024 11:32 AM EDT us Chery Nicole [facility] LAB BLOOD ORDERABLES Final Res ult Performing Organization Address [facility] Co de Phone Number [facility] [address] [place] [phone] * (ABNORMAL) Lipid Panel, Standard (01/03/2024 8:16 AM EDT) Triglycerides 98 <150 mg/dL [facility] Comment:Desirable Triglyceri de: less than 150 mg/dLBorderline High Triglyceride 150-199 mg/dLHigh Triglyceride: 200-499 mg/dLVery High Triglyceride: greater than or equal to 5OO mg/dL Cholesterol 144 <200 mg/dL [facility] Comment:Desirable Cholestero l: less than 200 mg/dLBorderline High Cholesterol: 200-239 mg/dLHigh Cholesterol: greater than 239 mg/dL LDL Cholesterol Calculated 88 <100 mg/dL [facility] Comment:Desirable LDL: less than 100 mg/dLNear Optimal/Above Optimal LDL: 110- 129 mg/dLBorderline High LDL: 130-159 mg/dLHigh LDL: 160-189 mg/dLVery High LDL: greater than or equal to 190 mg/dL HDL Cholesterol 37(L) >40 mg/dL [facility] Comment:Desirable HDL: great er than 40 mg/dL Note: This HDL assay may give artificially low results in patients with liver disease. Blood Venous blood specimen / Unknown 01/03/2024 8:16 AM EDT 01/03/2024 11:32 AM EDT us Chery Chadwickrancho [facility] LAB BLOOD ORDERABLES Final Res ult Performing Organization Address [facility]/ZIP Co de Phone Number [facility] [address] [place] [address] [phone] from Last 3 Months or Most Recently Relevant to Health Maintenance Insurance [facility] STANDARD Care Teams Daily Sales Audit Clerk Relationship Specialty Start Date End Date Chery Nicole FNP [address] [place] [phone] PCP - General Family Medicine 01/07/22
--- OUTSIDE RECORDS SUMMARY | 2024-09-28 16:35 | XMS_ITS | Encounter Summary ---
Author Organization [employer] Address [address] [place] [address] Care Team Providers Care Insecticide Expert Name Role Phone Chery Nicole Primary Care Provider [phone] Reason for Referral * Imaging (Urgent) - Authorized Specialty Diagnoses / Procedures Referred By Contac t Referred To Contact Radiology Diagnoses Menorrhagia with regular cycle Procedures Us Pelvis complete Yumiko Morales CNM [address] [place] [address] Phone: tel: fax: [facility] [address] [place] [address], [address] [address] Phone: tel: fax: Referral ID Status Reason Start Date Expiration Date V isits Requested Visits Authorized [id number] Authorized 09/28/2024 09/28/2025 1 1 * Imaging (Urgent) - Authorized Specialty Diagnoses / Procedures Referred By Contac t Referred To Contact Radiology Diagnoses Menorrhagia with regular cycle Procedures US Pelvis Transvaginal Yumiko Morales CNM [address] [place] [address] Phone: tel: fax: [facility] [address] [place] [address], [address] [address] Phone: tel: fax: Referral ID Status Reason Start Date Expiration Date V isits Requested Visits Authorized [id number] Authorized 09/28/2024 09/28/2025 1 1 Reason for Visit * Reason Comments Gynecologic Exam Encounter Details Date Type Department Care Team (Latest Contact Info) Description 09/28/2024 9:00 AM EDT Procedure Visit [facility] [address] [place], [place] [phone] Yumiko Morales CNM [address] [place] [address] Cervical cancer screening (Primary Dx); Menorrhagia with [...] with others, in a hotel, in a custodial, living outside on the street, on a [...] who presents for pap Last visit with ca 2022 for breast symptoms. Imaging ordered, no results in chart. She reports breast pain fully resolved, but doesn't think she ever had imaging. No breast symptoms today, no family history of breast/ [employer] cancer. No pap on file. She thinks [...] and plan. No breast imaging results in [facility]. Normal CBE today, no current breast symptoms. [...] and ultrasound. Will likely need referral to [employer] for Endometrial biopsy afterwards. Need for prophylactic [...] Upcoming Encounters Date Type Department Care Team ([facility] st Contact Info) Description 11/24/2024 8:45 AM EDT Office Visit [facility] MED & PEDS [address] [place] [address] Chery Nicole FNP [address] [place], [place] [phone] 01/01/2025 3:15 PM EDT Office Visit [facility] OPTOMETRY [address] [place] [address] Gina Stringer, OD [address] [place] [address] Scheduled Orders Name Type Priority Associated Diagnoses Order Schedule Pap Smear Pathology and Cytology Routine Cervical cancer screening Ordered: 09/28/2024 US Pelvis Transvaginal Imaging Urgent Menorrhagia with regular cycle Expected: 09/28/2024, Expires: 09/28/2025 Us Pelvis complete Imaging Urgent Menorrhagia with regular cycle Expected: 09/28/2024, Expires: 09/28/2025 documented as of this encounter Procedures Procedure Name Priority Date/Time Associated Diagnosis Comments TSH W/REFLEX TO FT4 Routine 09/28/2024 9 :30 AM EDT Menorrhagia with regular cycle documented in this encounter Results * TSH W/Reflex to FT4 (09/28/2024 9:30 AM EDT) TSH reflex Free T4 2.17 0.32 - 4.0 uIU/mL [facility] Blood Venous blood specimen / Unknown 09/28/2024 9:30 AM EDT 09/28/2024 11:40 AM EDT us Yumiko SHEIKH LAB BLOOD ORDERABLES Yokasta l Result [facility] [address] [place] [phone] documented in this encounter Visit Diagnoses Diagnosis Cervical cancer screening- Primary Screening for malignant neoplasm of the cervix Menorrhagia with regular cycle Need for prophylactic vaccination and inoculation against viral hepatitis Encounter for immunization documented in this encounter Additional Health Concerns Assessment Noted Time PHQ-9 Depression Total Score: 11 02/03/ 024 10:16 AM EDT documented as of this encounter Care Teams Insecticide Expert Relationship Specialty Start Date End Date Chery Nicole FNP [address] [place] [address] PCP - General Family Medicine 01/07/22 documented as of this encounter
--- OUTSIDE RECORDS SUMMARY | 2024-09-28 16:35 | XMS_ITS | Encounter Summary ---
Author Organization [employer] Address [address] [place] [address] [address] [facility] [place] [address] Care Team Providers Care Wildlife Technician Name Role Phone Chery Nicole Primary Care Provider [phone] Reason for Visit * Reason Comments Med Refill Encounter Details Date Type Department Care Team ([facility] Contact Info) Description 02/15/2024 Refill [facility] MED & PEDS [address] [place], [place] [phone] Chery Nicole FNP [address] [place] [address] Social History Tobacco Use Types Packs/Day Years [...] Description 11/24/2024 8:45 AM EDT Office Visit [facility] MED & PEDS [address] [place] [address] Chery Nicole FNP [address] [place] [address] 01/01/2025 3:15 PM EDT Office Visit [facility] OPTOMETRY [address] [place] [address] Tarka, Gina, OD [address] [place] [address] documented as of this encounter Visit Diagnoses Not on filedocumented in this encounter Additional Health Concerns Assessment Noted Time PHQ-9 Depression Total Score: 11 024 10:16 AM EDT documented as of this encounter Care Teams Wildlife Technician Relationship Specialty Start Date End Date Chery Nicole FNP [address] [place] [address] PCP - General Family Medicine 01/07/22 documented as of this encounter
--- OUTSIDE RECORDS SUMMARY | 2024-09-28 16:35 | XMS_ITS | Encounter Summary ---
Author Organization [employer] Address [address] [facility] [address] [place] [address] Care Team Providers Care Government Program Manager Name Role Phone Chery Nicole ROBIN Primary Care Provider [phone] Encounter Details Date Type Department Care Team [...] with others, in a hotel, in a assisted, living outside on the street, on a [...] Description 11/24/2024 8:45 AM EDT Office Visit [facility] MED & PEDS [address] [place] [address] Chery Nicole FNP [address] [place] [address] 01/01/2025 3:15 PM EDT Office Visit [facility] OPTOMETRY [address] [place] [address] TarkaGina, OD [address] [place] [address] documented as of this encounter Visit Diagnoses Not on filedocumented in this encounter Additional Health Concerns Assessment Noted Time PHQ-9 Depression Total Score: 11 024 10:16 AM EDT documented as of this encounter Care Teams Government Program Manager Relationship Specialty Start Date End Date Chery Nicole FNP [address] [place] [address] PCP - General Family Medicine 01/07/22 documented as of this encounter
--- OUTSIDE RECORDS SUMMARY | 2024-09-28 16:35 | XMS_ITS | Encounter Summary ---
Author Organization [employer] Address [address] [facility] [address] [address] Care Team Providers Care Paster Supervisor Name Role Phone Chery Nicole Primary Care Provider Reason for Visit * Reason Onset Date Comments chartprep 09/27/2024 Encounter Details Date Type Department Care Team ([facility] Contact Info) Description 09/27/2024 Telephone [facility] MEDICINE [address] [place] [address] Chery Nicole FNP [address] [place] [address] chartprep Social History Tobacco Use Types Packs/Day [...] with others, in a hotel, in a [place], living outside on the street, on a [...] Description 11/24/2024 8:45 AM EDT Office Visit [facility] CHC MED & PEDS [address] [place] [address] Chery Nicole FNP [address] [place] [address] 01/01/2025 3:15 PM EDT Office Visit [facility] OPTOMETRY [address] [place], [place] [phone] Gina Stringer, OD [address] [place] [address] documented as of this encounter Visit Diagnoses Not on filedocumented in this encounter Additional Health Concerns Assessment Noted Time PHQ-9 Depression Total Score: 11 024 10:16 AM EDT documented as of this encounter Care Teams Paster Supervisor Relationship Specialty Start Date End Date Chery Nicole FNP [address] [place] [address] PCP - General Family Medicine 01/07/22 documented as of this encounter
[2024-10-04 15:26] LABS: HPV Genotype 16 Negative (Negative); HPV Genotype 18 Negative (Negative); HPV High Risk Positive (Negative)
== END 2024-09-28 16:33 | disposition home or self-care (01) ==
LOC: HO.HHCLNP 16:32
PROVIDERS: Visit Provider Advanced Practice Midwife
DX: Z12.4 Encounter for screening for malignant neoplasm of cervix (principal); R87.810 Cervical high risk human papillomavirus (HPV) DNA test positive
CPT/HCPCS: 87626; 88175

== ENCOUNTER 2024-10-25 12:16 | Outpatient (REF) | payer MEDICAID, SELFPAY ==
--- NOTE | ~2024-10-25 | US_ITS ---
CLINICAL HISTORY: menorrhagia US pelvis transabdominal and transvaginal with Doppler Comparison: None Findings: Transabdominal scanning performed for overall anatomy. Transvaginal scanning performed for additional detail. Anteverted uterus is 8.3 cm length. Normal myometrium. Endometrium 5 mm thickness. Right ovary 2.8 x 2.9 x 1.8 cm. Left ovary 4.4 x 3.4 x 2.8 cm. Left ovarian cyst measuring 34 mm. Normal color Doppler with arterial/venous spectral tracing of both ovaries. No free fluid. IMPRESSION: 1. Unremarkable pelvic ultrasound with no evidence of ovarian torsion. This document has been electronically signed by: José Luis Pyle MD on 10/25/2024 14:58:07
--- OUTSIDE RECORDS SUMMARY | 2024-10-25 13:49 | XMS_ITS | Encounter Summary ---
Author Organization [employer] Address [address] [place] [address] Care Team Providers Care Wire Galvanizer Name Role Phone ChadwickChery vickers ROBIN Primary Care Provider [phone] Reason for Visit * Reason Onset Date Comments Results 10/04/2024 Encounter Details Date Type Department Care Team ([facility] st Contact Info) Description 10/04/2024 Results Follow-Up [facility] MEDICINE [address] [place], [place] [phone] Yumiko Morales CNM [address] [place] [address] Pap Smear, TSH W/Reflex to FT4 Social History Tobacco Use Types Packs/Day Years [...] with others, in a hotel, in a senior living, living outside on the street, on a [...] the past 12 months, has t he [employer] gas, oil or water [employer] threatened to shut off services in your [...] encounter Miscellaneous Notes * Telephone Encounter - Chary Ivey RN - 10/05/2024 11:05 AM EDT Telephone call to pt via [employer] sales representative #[id number]. Reviewed with pt that thyroid results normal, pt states she has pelvic ultrasound booked for 10/26/24. Reviewed that pap was normal but HPV test positive. Explained that this is very common infection passed through sex, symptoms may not present for many years, and that many people have this at some point in their lives. Explained that the plan is torepeat pap and HPV in 1 year, in the meantime, let the body clear the infection on its own with good sleep, quitting smoking, eating well. Pt verbalized understanding, no further questions. * Telephone Encounter - Chary Ivey RN - 10/04/2024 3:31 PM EDT Telephone call x1 to pt at both numbers on file to advise of below result. Both numbers not in service, unable to leave voicemail. Will task to try again. * Telephone Encounter - Chary Ivey RN - 10/04/2024 3:28 PM EDT ----- Message from Yumiko Morales sent at 10/04/2024 10:39 AM EDT ----- NIL pap, + HPV noted. Please let Kitty know pap was normal, but HPV test is positive. HPV is a very common infection that is easily passed through sex. Most people have this infection at some point. It can be present for long periods of time without symptoms. At this point, we want to let the body try to clear the infection on its own so we will repeat the pap and HPV in 1 year. Eat well, get adequate sleep and quit smoking if smoking. If questions, please schedule an appointment with me. Her thyroid test was normal. Is she scheduled for pelvic ultrasound yet to followup on her periods? Thanks! ----- Message ----- From: Interface, Lab Results In Sent: 09/28/2024 12:22 PM EDT To: Yumiko Morales CNM * Result Encounter Note - Yumiko Morales CNM - 10/04/2024 10:39 AM EDT NIL pap, + HPV noted. Please let Kitty know pap was normal, but HPV test is positive. HPV is a very common infection that is easily passed through sex. Most people have this infection at some point. It can be present for long periods of time without symptoms. At this point, we want to let the body try to clear the infection on its own so we will repeat the pap and HPV in 1 year. Eat well, get adequate sleep and quit smoking if smoking. If questions, please schedule an appointment with me. Her thyroid test was normal. Is she scheduled for pelvic ultrasound yet to followup on her periods? Thanks! documented in this encounter Plan of Treatment Upcoming Encounters Date Type Department Care Team (Late st Contact Info) Description 11/24/2024 8:45 AM EDT Office Visit [facility] CHC MED & PEDS [address] [place] [address] Chery Nicole FNP [address] [place] [address] 01/01/2025 3:15 PM EDT Office Visit [facility] OPTOMETRY [address] [place] [address] Tarka, Gina, OD [address] [place] [address] documented as of this encounter Visit Diagnoses Not on filedocumented in this encounter Additional Health Concerns Assessment Noted Time PHQ-9 Depression Total Score: 11 02/03/ 024 10:16 AM EDT documented as of this encounter Care Teams Wire Galvanizer Relationship Specialty Start Date End Date Chery Nicole FNP [address] [place] [address] PCP - General Family Medicine 01/07/22 documented as of this encounter
== END 2024-10-25 12:17 | disposition home or self-care (01) ==
LOC: HO.HMGCX 12:16
PROVIDERS: PCP Registered Nurse; Visit Provider Advanced Practice Midwife
DX: N92.0 Excessive and frequent menstruation with regular cycle (principal)
CPT/HCPCS: 76856

== ENCOUNTER 2024-11-21 08:10 | Outpatient (REF) | payer MEDICAID, SELFPAY ==
[2024-11-21 12:39] LABS: INTERNATIONAL NORM RATIO 1.0 (0.9-1.1); Prothrombin Time 11.0 SEC (10.9-12.4)
[2024-11-21 12:42] LABS: Partial Thromboplastin Time 30.8 SEC (26.0-36.8)
== END 2024-11-21 08:11 | disposition home or self-care (01) ==
LOC: HO.HHCL 08:10
PROVIDERS: Advanced Practice Midwife; PCP Registered Nurse
DX: G56.03 Carpal tunnel syndrome, bilateral upper limbs (principal); G56.21 Lesion of ulnar nerve, right upper limb
CPT/HCPCS: 36415; 85240; 85246; 85610; 85730; 99212

== ENCOUNTER 2024-11-21 08:10 | Outpatient (AMB) | payer MEDICAID, SELFPAY ==
--- NOTE | 2024-11-21 08:11 | MHC.OFFVIS ---
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 Patient states that for the last six months she has noticed the pain in both wrists have flared up. She then reports that she has numbness and tingling. EMG/NCS done on 09/19/24 IMPRESSION: 1. Dszc-sw-dnapissf bilateral median neuropathy across carpal tunnel. 2. Mild right ulnar neuropathy across cubital tunnel. 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 The patient reports numbness in all fingers, which prompted her primary care physician to refer her for further evaluation. Electromyography and nerve conduction studies confirmed the presence of both carpal tunnel syndrome and cubital tunnel syndrome. The patient experiences symptoms in both hands, with the right hand being more symptomatic. She has opted to proceed with surgical intervention, starting with the right hand. Review of Systems - Neurological: Reports numbness in all fingers. Physical Exam - Neurological: Positive Tinel's sign at the wrist and elbow Normal sensation to all digits of bilateral hands in the office today No thenar or intrinsic wasting noted - Musculoskeletal: Full and intact ROM of bilateral hands Results - Electromyography and nerve conduction studies confirmed carpal tunnel syndrome and cubital tunnel syndrome. Plan The plan involves surgical intervention for both carpal tunnel syndrome and cubital tunnel syndrome. The carpal tunnel release will be performed under local anesthesia, while the cubital tunnel release requires general anesthesia. The patient has been informed of a four-week recovery period, with specific instructions for postoperative care, including keeping the bandage clean and dry for the first five days. After this period, the patient can wash the incision sites with soap and water, avoiding submersion in water for three weeks. The patient is advised to avoid lifting anything heavier than a cell phone for four weeks and to follow up in two weeks for suture removal and assessment. I educated the patient about the condition. I discussed both operative and nonoperative treatment options. The patient would like to proceed with surgery. The risks and benefits of operative treatment were discussed with the patient and the patient wishes to proceed with surgery. These risks include, but are not limited to, risk of damage to blood vessels, nerves, tendons, infection, recurrence, incomplete relief of preoperative symptoms, persistent pain, possible need for further surgery, and the risks associated with regional blocks and/or anesthesia. Plan is to take the patient to the operating room at some point in the next few weeks for the following procedures 1. Right cubital tunnel release under general 2. Right carpal tunnel release under general All of the preoperative paperwork including the consent was discussed today. All of the patient's questions were answered in the clinic today. The patient understands that they will be in contact with our neurosurgical nurse practitioner to discuss scheduling their procedure. Patient denies diabetes, blood thinners, asthma, heart issues, lung issues, kidney issues, or current smoking. Discussion Notes I discussed with the patient the diagnosis of carpal tunnel syndrome and cubital tunnel syndrome, confirmed by electromyography and nerve conduction studies. We reviewed the surgical options, including the need for general anesthesia for the cubital tunnel release and local anesthesia for the carpal tunnel release. I explained the postoperative care instructions, emphasizing the importance of keeping the bandage clean and dry, and avoiding submersion in water for three weeks. The patient was informed about the four-week recovery period and the need to avoid lifting heavy objects. We also discussed the follow-up schedule, including suture removal in two weeks and reassessment in four weeks. Coding Level of Care Code New Pt Level 4 (08286) Diagnoses Cubital tunnel syndrome on right G56.21 Right carpal tunnel syndrome G56.01
--- OUTSIDE RECORDS SUMMARY | 2024-11-21 08:14 | XMS_ITS | Encounter Summary ---
Author Organization [employer] Address [address] [place] [address] Care Team Providers Care Maintenance Planner Name Role Phone Chery Nicole Primary Care Provider [phone] Reason for Visit * Reason Onset Date Comments Letter for School/Work 05/14/2022 Encounter Details Date Type Department Care Team ([facility] st Contact Info) Description 05/14/2022 Telephone [facility] MEDICINE [address] [place] [address] Chery Nicole FNP [address] [place] [address] Letter for School/Work Social History Tobacco Use [...] her with anxiety Please contact pt at [phone] documented in this encounter Plan of Treatment Upcoming Encounters Date Type Department Care Team (Late st Contact Info) Description 11/24/2024 8:45 AM EDT Office Visit [facility] CHC MED & PEDS [address] [place] [address] Chery Nicole FNP [address] [place] [address] 01/08/2025 3:15 PM EDT Office Visit [facility] OPTOMETRY [address] [place] [address] TarkaGina, OD [address] [place] [address] documented as of this encounter Visit Diagnoses Not on filedocumented in this encounter Care Teams Maintenance Planner Relationship Specialty Start Date End Date Chery Nicole FNP [address] [place] [address] PCP - General Family Medicine 01/07/22 documented as of this encounter
[2024-11-21 08:42] VITALS: BMI 60.0
== END 2024-11-21 09:00 | disposition home or self-care (01) ==
LOC: HO.HOS 08:10
PROVIDERS: PCP Registered Nurse
DX: G56.21 Lesion of ulnar nerve, right upper limb (principal); G56.01 Carpal tunnel syndrome, right upper limb
CPT/HCPCS: 99204

== ENCOUNTER 2024-11-24 09:51 | Outpatient (REF) | payer MEDICAID, SELFPAY ==
--- OUTSIDE RECORDS SUMMARY | 2024-11-24 10:13 | XMS_ITS | Encounter Summary ---
Author Organization [employer] Address [address] [place] [address] Care Team Providers Care Rubber Ball Finisher Name Role Phone Chery Nicole Primary Care Provider [phone] Reason for Visit * Reason Onset Date Comments Letter for School/Work 05/14/2022 Encounter Details Date Type Department Care Team ([facility] st Contact Info) Description 05/14/2022 Telephone [facility] MEDICINE [address] [place] [address] Chery Nicole FNP [address] [place] [address] Letter for School/Work Social History Tobacco Use [...] her with anxiety Please contact pt at [phone] documented in this encounter Plan of Treatment Upcoming Encounters Date Type Department Care Team (Late st Contact Info) Description 12/18/2024 9:30 AM EDT Office Visit [facility] MED & PEDS [address] [place] [address] Chery Nicole FNP [address] [place] [address] 01/08/2025 3:15 PM EDT Office Visit [facility] OPTOMETRY [address] [place] [address] TarkaGina, OD [address] [place] [address] 02/05/2025 11:15 AM EDT Office Visit [facility] MED & PEDS [address] [place] [address] Chery Nicole FNP [address] [place] [address] documented as of this encounter Visit Diagnoses Not on filedocumented in this encounter Care Teams Rubber Ball Finisher Relationship Specialty Start Date End Date Chery Nicole FNP [address] [place] [address] PCP - General Family Medicine 01/07/22 documented as of this encounter
[2024-11-24 14:48] LABS: MANUAL DIFF FLAG NO
[2024-11-24 14:58] LABS: Hematocrit 31.8 % (37.0-47.0); Hemoglobin 9.9 g/dl (12.0-16.0); Imm Gran Abs Auto 0.01 X10*3/uL (0.00-0.03); Imm Gran Pct Auto 0.2 % (0.0-0.4); Lymphocytes Absolute Auto 1.9 X10*3/uL (1.2-4.9); Mean Corpuscular HGB Conc 31.1 g/dl (31.0-35.0); Mean Corpuscular Hemoglobin 22.3 pg (27.0-33.0); Mean Corpuscular Volume 71.8 fL (80.0-98.0); NRBC Abs Auto 0.000 X10*3/uL (0.0-0.012); NRBC Pct Auto 0.0 /100WBC (0.0-0.2); Platelet Count 186 X10*3/uL (160-400); Red Blood Count 4.43 X10*6/uL (4.20-5.50); White Blood Count 6.5 X10*3/uL (4.8-10.8)
[2024-11-24 15:22] LABS: Cholesterol 158 mg/dL (<200); HDL Cholesterol 36 mg/dL (>40); Iron 29 mcg/dL (30-160); Percent Iron Saturation 8 % (15-50); Total Iron Binding Capacity 376 mcg/dL (228-428); Triglycerides 109 mg/dL (<150); Unsaturated Iron Binding 347 ug/dL
[2024-11-24 15:27] LABS: Ferritin 32 ng/mL (10-122)
== END 2024-11-24 09:52 | disposition home or self-care (01) ==
LOC: HO.CHCLDS 09:51
PROVIDERS: Visit Provider Registered Nurse
DX: E11.9 Type 2 diabetes 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 complications (principal); D50.9 Iron deficiency anemia, unspecified
CPT/HCPCS: 36415; 80061; 82306; 82728; 83540; 85025

== ENCOUNTER → 2024-12-13 13:52 | Outpatient (BNV) | payer MEDICAID, SELFPAY | PROVIDERS: PCP Registered Nurse; Visit Provider Internal Medicine Cardiovascular Disease | DX: Z01.810 Encounter for preprocedural cardiovascular examination (principal) | CPT/HCPCS: 93010 ==

== ENCOUNTER 2024-12-18 09:44 | Outpatient (REF) | payer MEDICAID, SELFPAY ==
--- OUTSIDE RECORDS SUMMARY | 2024-12-18 10:18 | XMS_ITS | Encounter Summary ---
Author Organization [employer] Address [address] [place] [address] Care Team Providers Care Electronics Repair Technician Name Role Phone Chery Nicole Primary Care Provider [phone] Reason for Visit * Reason Onset Date Comments Letter for School/Work 05/14/2022 Encounter Details Date Type Department Care Team ([facility] st Contact Info) Description 05/14/2022 Telephone [facility] MEDICINE [address] [place] [address] Chery Nicole FNP [address] [place] [address] Letter for School/Work Social History Tobacco Use [...] her with anxiety Please contact pt at [phone] documented in this encounter Plan of Treatment Upcoming Encounters Date Type Department Care Team (Late st Contact Info) Description 01/08/2025 3:15 PM EDT Office Visit [facility] OPTOMETRY [address] [place], [place] [id number] Gina Stringer, OD [address] [place] [address] 02/05/2025 11:15 AM EDT Office Visit [facility] CHC MED & PEDS [address] [place] [address] Chery Nicole FNP [address] [place] [address] documented as of this encounter Visit Diagnoses Not on filedocumented in this encounter Care Teams Electronics Repair Technician Relationship Specialty Start Date End Date Chery Nicole FNP [address] [place] [address] PCP - General Family Medicine 01/07/22 documented as of this encounter
[2024-12-18 13:57] LABS: MANUAL DIFF FLAG NO
[2024-12-18 14:12] LABS: Hematocrit 36.1 % (37.0-47.0); Hemoglobin 11.0 g/dl (12.0-16.0); Imm Gran Abs Auto 0.03 X10*3/uL (0.00-0.03); Imm Gran Pct Auto 0.5 % (0.0-0.4); Lymphocytes Absolute Auto 1.6 X10*3/uL (1.2-4.9); Mean Corpuscular HGB Conc 30.5 g/dl (31.0-35.0); Mean Corpuscular Hemoglobin 22.2 pg (27.0-33.0); Mean Corpuscular Volume 72.9 fL (80.0-98.0); NRBC Abs Auto 0.000 X10*3/uL (0.0-0.012); NRBC Pct Auto 0.0 /100WBC (0.0-0.2); Platelet Count 185 X10*3/uL (160-400); Red Blood Count 4.95 X10*6/uL (4.20-5.50); White Blood Count 6.3 X10*3/uL (4.8-10.8)
[2024-12-18 14:35] LABS: Hemoglobin A1C 151.5045 umol/L; Total Hemoglobin (HGBA1C) 2897.4666 umol/L
[2024-12-18 14:40] LABS: Microalbum/Creatinine Ratio Ur 84.0 ug/mg cr (<30)
[2024-12-18 15:28] LABS: CT PCR Urine NOT DETECTED (Not Detect.); NG PCR Urine NOT DETECTED (Not Detect.)
== END 2024-12-18 09:45 | disposition home or self-care (01) ==
LOC: HO.CHCLDS 09:44
PROVIDERS: PCP Registered Nurse; Referring Provider Advanced Practice Midwife; Visit Provider Registered Nurse
DX: Z11.3 Encounter for screening for infections with a predominantly sexual mode of transmission (principal); Z11.8 Encounter for screening for other infectious and parasitic diseases; Z01.818 Encounter for other preprocedural examination; E11.9 Type 2 diabetes 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 complications; N92.0 Excessive and frequent menstruation with regular cycle
CPT/HCPCS: 36415; 82043; 82570; 83036; 85025; 87491; 87591

== ENCOUNTER 2024-12-20 08:40 | Outpatient (AMB) | payer MEDICAID, SELFPAY ==
[2024-12-20 08:50] VITALS: BMI 60.0
--- NOTE | 2024-12-20 08:50 | MHC.OFFVIS ---
Vital Signs 12/20/24 08:50 Height 5 ft 7 in Weight 383 lb BMI 60.0 Intake Visit Reasons: Preop RT cubital/CTR 12/28/24 AR Intake Note: Kitty is a 34 year old - hand dominant female who presents today pre-operatively for discussion of their upcoming right cubital & carpal tunnel release scheduled for 12/28/[address] Tran. Allergies Penicillins Adverse Reaction (Intermediate, Verified 12/20/24 08:56) Swelling/hives HPI HPI Preop RT cubital/CTR 12/28/24 AR: Details: Kitty is a 34 year old - hand dominant female who presents today pre-operatively for discussion of their upcoming right cubital & carpal tunnel release scheduled for 12/28/[address] Tran. Patient reports that her symptoms have remained consistent from previous evaluation, and the patient would like to still proceed with operative intervention as planned. Patient does report that she was compliant with recommendations of stopping her No other acute complaints or concerns at this time. [facility] Medical History (Updated 12/12/24 @ 14:47 by Nu Mcadams RN) Class 3 severe obesity due to excess calories with body mass index (BMI) of 50.0 to 59.9 in adult Microcytic anemia Chronic low back pain CARMELO (generalized anxiety disorder) Type 2 diabetes mellitus HTN (hypertension) Surgical History (Updated 12/12/24 @ 14:45 by Nu Mcadams RN) Hx of wisdom tooth extraction Hx of tubal ligation Hx of cholecystectomy Social History (Updated 11/21/24 @ 08:18 by Chary Carrillo) Are you a primary behavioral health care coordinator to a significant other at home: No Do you presently have visiting nurse or other home services: No Alcohol intake: never Patient Tobacco Use Status: Never used Tobacco Current occupational status: employed 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 Good APB muscle firing and good finger cross. Vascular: Capillary refill brisk. ROM: Patient can make a fist and extend all their digits. Skin: No lacerations or abrasions noted. General: No ecchymosis. No erythema or evidence of infection. Assessment & Plan Assessment & Plan (1) Cubital tunnel syndrome on right: Code(s): G56.21 - Lesion of ulnar nerve, right upper limb Category: Medical (2) Right carpal tunnel syndrome: Code(s): G56.01 - Carpal tunnel syndrome, right upper limb Category: Medical Plan The plan involves surgical intervention for both carpal tunnel syndrome and cubital tunnel syndrome. The carpal tunnel release will be performed under local anesthesia, while the cubital tunnel release requires general anesthesia. The patient has been informed of a four-week recovery period, with specific instructions for postoperative care, including keeping the bandage clean and dry for the first five days. After this period, the patient can wash the incision sites with soap and water, avoiding submersion in water for three weeks. The patient is advised to avoid lifting anything heavier than a cell phone for four weeks and to follow up in two weeks for suture removal and assessment. I educated the patient about the condition. I discussed both operative and nonoperative treatment options. The patient would like to proceed with surgery. The risks and benefits of operative treatment were discussed with the patient and the patient wishes to proceed with surgery. These risks include, but are not limited to, risk of damage to blood vessels, nerves, tendons, infection, recurrence, incomplete relief of preoperative symptoms, persistent pain, possible need for further surgery, and the risks associated with regional blocks and/or anesthesia. Plan is to take the patient to the operating room at some point in the next few weeks for the following procedures 1. Right cubital tunnel release under general 2. Right carpal tunnel release under general All of the preoperative paperwork including the consent was discussed today. All of the patient's questions were answered in the clinic today. The patient understands that they will be in contact with our rn surgical to discuss scheduling their procedure. Patient denies diabetes, blood thinners, asthma, heart issues, lung issues, kidney issues, or current smoking. Coding Level of Care Code Est Pt Level 4 (11855) Diagnoses Cubital tunnel syndrome on right G56.21 Right carpal tunnel syndrome G56.01
--- OUTSIDE RECORDS SUMMARY | 2024-12-20 08:52 | XMS_ITS | Encounter Summary ---
Author Organization [employer] Address [address] [place] [address] Care Team Providers Care Director Client Name Role Phone Chery Nicole Primary Care Provider [phone] Reason for Visit * Reason Onset Date Comments Letter for School/Work 05/14/2022 Encounter Details Date Type Department Care Team ([facility] st Contact Info) Description 05/14/2022 Telephone [facility] MEDICINE [address] [place] [address] Chery Nicole FNP [address] [place] [address] Letter for School/Work Social History Tobacco Use [...] her with anxiety Please contact pt at [phone] documented in this encounter Plan of Treatment Upcoming Encounters Date Type Department Care Team (Late st Contact Info) Description 01/08/2025 3:15 PM EDT Office Visit [facility] OPTOMETRY [address] [place], [place] [phone] Gina Stringer, OD [address] [place] [address] 02/05/2025 11:15 AM EDT Office Visit [facility] MED & PEDS [address] [place] [address] Chery Nicole FNP [address] [place] [address] documented as of this encounter Visit Diagnoses Not on filedocumented in this encounter Care Teams Director Client Relationship Specialty Start Date End Date Chery Nicole FNP [address] [place] [address] PCP - General Family Medicine 01/07/22 documented as of this encounter
== END 2024-12-20 09:13 | disposition home or self-care (01) ==
LOC: HO.HOS 08:41
PROVIDERS: PCP Registered Nurse
DX: G56.21 Lesion of ulnar nerve, right upper limb (principal); G56.01 Carpal tunnel syndrome, right upper limb
CPT/HCPCS: 99214

== ENCOUNTER → 2024-12-20 08:40 | Outpatient (BNVA) | payer MEDICAID, SELFPAY | PROVIDERS: PCP Registered Nurse | DX: Z01.818 Encounter for other preprocedural examination (principal); G56.21 Lesion of ulnar nerve, right upper limb; G56.01 Carpal tunnel syndrome, right upper limb | CPT/HCPCS: 99212 ==

== ENCOUNTER 2024-12-28 05:37 | Day surgery (SDC) | payer MEDICAID, SELFPAY ==
--- NOTE | 2024-12-13 | ECG_ITS ---
Test Reason : preop Blood Pressure : */* mmHG Vent. Rate : 74 BPM Atrial Rate : 74 BPM P-R Int : 132 ms QRS Dur : 88 ms QT Int : 370 ms P-R-T Axes : 33 29 31 degrees QTcB Int : 410 ms Normal sinus rhythm Normal ECG No previous ECGs available Referred By: Ivory Siddiqi Electronically Signed By: JOSIE CEDILLO MD
[2024-12-13 12:55] VITALS: BP 131/67; PULSE 70; RESP 20; O2SAT 100; BMI 51.7
--- NOTE | 2024-12-13 13:04 | HO.ANESPROP2 ---
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 BMI: 51 Asthma: Albuterol 2-3 x weekly No s/s of PARADISE per partner Anesthesia Pre-Procedure Meds Is the patient on any of the following meds?: GLP1/DPP4 PMFSH Active Problems Active Problems: All Active Problems Right carpal tunnel syndrome (Acute) Cubital tunnel syndrome on right (Acute) Past Medical History Medical History Class 3 severe obesity due to excess calories with body mass index (BMI) of 50.0 to 59.9 in adult Microcytic anemia Chronic low back pain CARMELO (generalized anxiety disorder) Type 2 diabetes mellitus HTN (hypertension) Family History Family history of problems with anesthesia: No Surgical History Surgical History Hx of wisdom tooth extraction Hx of tubal ligation Hx of cholecystectomy History of Problems with Anesthesia: No Social History Social History Are you a primary restorative care technician to a significant other at home: No Do you presently have visiting nurse or other home services: No Alcohol intake: never Patient Tobacco Use Status: Never used Tobacco Use of substances other than those prescribed or required for medical reasons: No Have you been hit, kicked, punched, or otherwise hurt by someone within the past year? 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 Meds Allergies Allergy/AdvReac Type Severity Reaction Status Date / Time Penicillins AdvReac Intermediate Swelling/hi Verified 12/28/24 06:26 ves Home Medications ?Medication ?Instructions ?Recorded ?Confirmed ?Last Taken ?Type acetaminophen 500 mg tablet 500 mg PO Q6H PRN mild pain 12/12/24 12/12/24 Unknown History albuterol sulfate 90 mcg/actuation 2 puff inhalation Q4H PRN wheezing 12/12/24 12/28/24 12/28/24 History aerosol inhaler (Ventolin HFA) atorvastatin 10 mg tablet 10 mg PO BEDTIME 12/12/24 12/12/24 Unknown History cholecalciferol (vitamin D3) 25 25 mcg PO DAILY 12/12/24 12/12/24 Unknown History mcg (1,000 unit) tablet escitalopram oxalate 5 mg tablet 5 mg PO QAM 12/12/24 12/12/24 Unknown History ferrous gluconate 324 mg (38 mg 324 mg PO DAILY 12/12/24 12/12/24 Unknown History iron) tablet fluticasone propionate 50 1 spray intranasal DAILY 12/12/24 12/12/24 Unknown History mcg/actuation nasal spray,suspension losartan 100 1 tab PO DAILY 12/12/24 12/12/24 Unknown History mg-hydrochlorothiazide 25 mg tablet tirzepatide (weight loss) 2.5 2.5 mg subcut QWEEK 12/12/24 12/12/24 12/09/24 History mg/0.5 mL subcutaneous pen injector (Zepbound) metformin 500 mg tablet 500 mg PO 12/20/24 Unknown History Exam Height,Weight and Vital Signs: Height 5 ft 7 in Weight 149.685 kg Last Vital Signs Pulse 70 12/13/24 12:55 Resp 20 12/13/24 12:55 BP 131/67 12/13/24 12:55 Pulse Ox 100 12/13/24 12:55 O2 Del Method Room Air 12/13/24 12:55 Pertinent Lab Results Pertinent Lab Results: Lab Results 12/13/24 Range/Units 13:50 Sodium 137 (135-145) mmol/L Potassium 4.1 (3.3-5.1) mmol/L Chloride 107 (96-108) mmol/L Carbon Dioxide 22 (22-29) mmol/L Anion Gap 12 (12-20) BUN 7 L (9-16) mg/dL Creatinine 0.52 (0.5-1.4) mg/dL Estim Creat Clear Calc 228.6 Estimated GFR > 60 Random Glucose 89 (60-115) mg/dL Calcium 8.9 (8.4-10.2) mg/dL Laboratory Tests 11/24/24 09:52 WBC 6.5 Hgb 9.9 L Hct 31.8 L Plt Count 186 Narrative Narrative: EKG 11/2024 Vent. Rate : 74 BPM Atrial Rate : 74 BPM P-R Int : 132 ms QRS Dur : 88 ms QT Int : 370 ms P-R-T Axes : 33 29 31 degrees QTcB Int : 410 ms Normal sinus rhythm Normal ECG No previous ECGs available Airway Loose/Missing/Broken Teeth: No (crowned molars) Heart: RRR Lungs: CTAB Assessment and Plan Assessment Anesthesia Assessment: Anesthesia Plan Discussed (Pt verbalized understanding with partner helping to interpret per patient request) and PAT Visit Final Anesthetic Review Family History of Problems with Anesthesia: No History of Problems with Anesthesia: No Documented by User: Yara Saucedo MD 12/28/24 08:02 [facility] Past Medical History Medical History Class 3 severe obesity due to excess calories with body mass index (BMI) of 50.0 to 59.9 in adult Microcytic anemia Chronic low back pain CARMELO (generalized anxiety disorder) Type 2 diabetes mellitus HTN (hypertension) Surgical History Surgical History Hx of wisdom tooth extraction Hx of tubal ligation Hx of cholecystectomy Social History Social History Are you a primary restorative care technician to a significant other at home: No Do you presently have visiting nurse or other home services: No Alcohol intake: never Patient Tobacco Use Status: Never used Tobacco Use of substances other than those prescribed or required for medical reasons: No Have you been hit, kicked, punched, or otherwise hurt by someone within the past year? 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 Meds Allergies Allergy/AdvReac Type Severity Reaction Status Date / Time Penicillins AdvReac Intermediate Swelling/hi Verified 12/28/24 06:26 ves Home Medications ?Medication ?Instructions ?Recorded ?Confirmed ?Last Taken ?Type acetaminophen 500 mg tablet 500 mg PO Q6H PRN mild pain 12/12/24 12/12/24 Unknown History albuterol sulfate 90 mcg/actuation 2 puff inhalation Q4H PRN wheezing 12/12/24 12/28/24 12/28/24 History aerosol inhaler (Ventolin HFA) atorvastatin 10 mg tablet 10 mg PO BEDTIME 12/12/24 12/12/24 Unknown History cholecalciferol (vitamin D3) 25 25 mcg PO DAILY 12/12/24 12/12/24 Unknown History mcg (1,000 unit) tablet escitalopram oxalate 5 mg tablet 5 mg PO QAM 12/12/24 12/12/24 Unknown History ferrous gluconate 324 mg (38 mg 324 mg PO DAILY 12/12/24 12/12/24 Unknown History iron) tablet fluticasone propionate 50 1 spray intranasal DAILY 12/12/24 12/12/24 Unknown History mcg/actuation nasal spray,suspension losartan 100 1 tab PO DAILY 12/12/24 12/12/24 Unknown History mg-hydrochlorothiazide 25 mg tablet tirzepatide (weight loss) 2.5 2.5 mg subcut QWEEK 12/12/24 12/12/24 12/09/24 History mg/0.5 mL subcutaneous pen injector (Zepbound) metformin 500 mg tablet 500 mg PO 12/20/24 Unknown History Exam Airway Mallampati Class: III TM Dist: >3cm Neck ROM: Limited Assessment and Plan Assessment Anesthesia Assessment: Chart Reviewed Final Anesthetic Review NPO: Yes ASA Class: III Final Preanesthetic Review: No Changes in Pt Med Stat, Meds/Allgs Chart Reviewed, Consent Obtained/Reviewed and Anes Risks/Benef Reviewed Patient Risk: Intermediate Procedure Risk: Intermediate Anesthetic Plan Anesthetic Plan: GA Disposition: Standard PACU
[2024-12-13 14:36] LABS: Anion Gap 12 (12-20); Blood Urea Nitrogen 7 mg/dL (9-16); Calcium 8.9 mg/dL (8.4-10.2); Carbon Dioxide 22 mmol/L (22-29); Chloride 107 mmol/L (96-108); Creatinine Clr Calc Pharmacy 228.6; Estimated Glomerular Filt Rate > 60; Potassium 4.1 mmol/L (3.3-5.1); Sodium 137 mmol/L (135-145)
[2024-12-28] VITALS (8 sets, daily range): BP systolic 114–151; BP diastolic 54–90; PULSE 73–85; RESP 15–20; TEMP 36.1–36.6; O2SAT 95–99
[2024-12-28] MEDS: Lactated Ringers 1,000 ML 100 ML IVCONT (06:34)
[2024-12-28 07:37] LABS: Glucose, Whole Blood 144 mg/dL (60-115)
--- NOTE | 2024-12-28 07:43 | P.OP_ITS ---
Operative Note Operative Note Date of Service: 12/28/24 Narrative: Operative Note Narrative: Preop diagnosis: 1. Right Cubital tunnel syndrome 2. Right carpal tunnel syndrome Postop diagnosis: Same Procedure: 1. Right Cubital Tunnel Release 2. Right carpal tunnel release Surgeon: Maria Del Carmen Tran MD Category Development Analyst: Samuel WILLINGHAM Anesthesia: General Anesthesia Findings: Thickening and fibrosis about the ulnar nerve at the cubital tunnel Implants: none Tourniquet time: 45 minutes EBL: 5.0 ml Specimen: none Drains: None Complications: None Disposition: Brought to the recovery room in stable condition Plan: Follow-up in 10-14 days for wound check, and suture removal Indications: The patient is 34 years old with right cubital tunnel syndrome and right carpal tunnel syndrome . The risks and benefits of operative treatment, including but not limited to risk of damage to blood vessels, nerves, tendons, infection, recurrence, persistent pain or numbness, incomplete resolution of preoperative symptoms, or need for further surgery were discussed with the patient and they wished to proceed with surgery. Procedure: Once consent was obtained patient was brought back to the operating suite and placed in the operating table in a supine position. Perioperative antibiotics and anesthesia was administered by the anesthesia team. The limb was prepped and draped in a standard surgical fashion, and a sterile tourniquet applied to the proximal aspect of the right upper extremity. The limb was elevated exsanguinated with Esmarch bandage and the tourniquet inflated to 250 mm of mercury for a total tourniquet time of 45 minutes. Once assured that we had a good block, a 2.0 cm longitudinal incision was made centered over the right carpal tunnel. The incision was made through the skin to the subcutaneous tissues using a #15 blade. Dissection was made down to the level of the transverse carpal ligament with care being taken to protect the palmar cutaneous nerve. Once the transverse carpal ligament was clearly visual ized, a longitudinal incision was made in the transverse carpal ligament 1st using a #15 blade, then using tenotomy scissors under direct visualization. Care was taken to look for and protect the motor branch of the median nerve when seen in this area. Once satisfied with our carpal tunnel release the wound was irrigated with normal saline. A 6 cm gently curved but longitudinally oriented incision was made centered over the cubital tunnel of the upper extremity. Incision was made through the skin to the subcutaneous tissues using a # 15 Blade. I then dissected down to the level of the medial epicondyle and the cubital tunnel using tenotomy scissors. Care was taken to protect the medial antebrachial cutaneous nerve. The ulnar nerve was identified just posterior to the medial intermuscular septum. The ulnar nerve was released in a proximal to distal direction using tenotomy in iris scissors while directly visualizing and protecting the ulnar nerve. Thickening and fibrosis was appreciated about the ulnar nerve as it passed through the cubital tunnel. The ulnar nerve was assessed as I passed the elbow through full flexion and extension and was found to remain stable within its groove. At this point the tourniquet was deflated and hemostasis obtained with a brief period of local pressure and bipolar electrocautery. The wound was copiously irrigated with normal saline. The subcutaneous layer was closed with 4-0 Vicryl suture, and the skin edges were reapproximated with 5-0 nylon suture. The wound was infiltrated with some 1% lidocaine with epinephrine for postop pain control and sterile dressings were applied. The patient appears to have tolerated the procedure well and with no complications. All digits were well vascularized at the conclusion of the case.
--- NOTE | 2024-12-28 07:43 | MHC.SHP ---
Pre-Procedural Eval Section A - 24 Hr Update-Section A only Date of Service: 12/28/24 The patient is an INPATIENT: No Changes since office visit: No Cold of Flu in the past 2 weeks, No New Medical Problems, No Changes in Medication and No Patient answered all questions The patient has been examined within 24 hours of the surgical procedure. The History & Physical has been completed within 30 days and I have reviewed it.: Yes Section B - Complete if H&P > 30 days Chief Complaint: Lesion of ulnar nerve, right upper limb,carpal Allergies: Allergies Allergy/AdvReac Type Severity Reaction Status Date / Time Penicillins AdvReac Intermediate Swelling/hi Verified 12/28/24 06:26 ves Plan I have reviewed the history and physical and performed a pertinent physical examination on my patient. No changes have occurred unless specified. Time Spent With Patient Time: Total time managing care of this patient today ____ minutes.
== END 2024-12-28 11:00 | disposition home or self-care (01) ==
PROVIDERS: Nurse Practitioner; PCP Registered Nurse; Visit Provider Orthopaedic Surgery
PROC: (CPT 64718; principal; 2024-12-28 07:30)
PROC: (CPT 64721; 2024-12-28 07:30)
DX: G56.01 Carpal tunnel syndrome, right upper limb (principal); G56.21 Lesion of ulnar nerve, right upper limb; R20.0 Anesthesia of skin; G89.29 Other chronic pain; M54.50 Low back pain, unspecified; I10 Essential (primary) hypertension; D50.9 Iron deficiency anemia, unspecified; E11.9 Type 2 diabetes 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 complications; J45.909 Unspecified asthma, uncomplicated; E66.813 Obesity, class 3; Z68.43 Body mass index [BMI] 50.0-59.9, adult; F41.1 Generalized anxiety disorder; Z79.51 Long term (current) use of inhaled steroids; Z79.84 Long term (current) use of oral hypoglycemic drugs; Z79.85 Long-term (current) use of injectable non-insulin antidiabetic drugs; Z79.899 Other long term (current) drug therapy; Z88.0 Allergy status to penicillin; Z90.49 Acquired absence of other specified parts of digestive tract; Z98.51 Tubal ligation status
CPT/HCPCS: 64721; 64718; 36415; 80048; 82947; 93005; J0131; J0690; J2003; J2004; J2250; J2405; J2704; J2795; J3010

== ENCOUNTER → 2024-12-28 05:37 | Outpatient (BNV) | payer MEDICAID, SELFPAY | PROVIDERS: PCP Registered Nurse; Visit Provider Orthopaedic Surgery | DX: G56.01 Carpal tunnel syndrome, right upper limb (principal); G56.21 Lesion of ulnar nerve, right upper limb | CPT/HCPCS: 64718; 64721 ==

== ENCOUNTER 2025-01-10 08:24 | Outpatient (AMB) | payer MEDICAID, SELFPAY ==
--- OUTSIDE RECORDS SUMMARY | 2025-01-08 15:15 | XMS_ITS | Encounter Summary ---
Author Organization [employer] Address [address] [place] [address] 7 [place] [address] Care Team Providers Care Hogshead Press Operator Name Role Phone ChadwickranchoKinle ROBIN Primary Care Provider [phone] Encounter Details Date Type Department Care Team (Latest Contact Info) Description 01/08/2025 3:15 PM EDT Office Visit [facility] OPTOMETRY [address] [place], [place] [phone] Gina Stringer, OD [address] [place] [address] Type 2 diabetes 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 ophthalmic manifestations (CMS/HCC) (Primary Dx); Hypermetropia, bilateral Social History Tobacco Use Types Packs/Day Years [...] with others, in a hotel, in a correction, living outside on the street, on a [...] the past 12 months, has t he [employer], gas, oil or water [employer] threatened to shut off services in your [...] AM EDT documented as of this encounter Progress Notes * Gina Stringer, ETHAN - 01/08/2025 3:15 PM EDT Eye Care Progress Note Patient ID: Kitty De Jesus is a 34 y.o. female. HPI Patient presents for T2DM eye exam. Patient's last A1c was 6.9% on 12/18/24. Patient did not check BSL today but says she often does. Patient is happy with vision through her current glasses. EDGARD: here 2023 Last edited by Gina Stringer, ETHAN on 01/08/2025 4:11 PM. Current Medications[1] Medical History[2] Surgical History[3] Family History[4] Tobacco Use: Low Risk (01/08/2025) Tobacco Smoking Tobacco Use: Never Smokeless Tobacco Use: Never Passive Exposure: Never Allergies[5] ROS Positive for: Endocrine, Eyes Negative for: Constitutional, Gastrointestinal, Neurological, Skin, Genitourinary, Musculoskeletal,HENT, Cardiovascular, Respiratory, Psychiatric, Allergic/Imm, Heme/Lymph Last edited by Gina Stringer OD on 01/08/2025 3:01 PM. Base Eye Exam Visual Acuity (Snellen - Linear) Right Left Dist cc 20/25 20/30-2 Tonometry (iCare , 3:11 PM) Right Left Pressure 16 17 Pupils Pupils APD Right PERRL None Left PERRL None Visual Madrigal (Counting fingers) Left Right Full Full Extraocular Movement Right Left Full Full Neuro/Psych Oriented x3: Yes Mood/Affect: Normal Dilation Both eyes: 1.0% tropicamide @ 3:32 PM Slit Lamp and Fundus Exam External Exam Right Left External Normal Normal Slit Lamp Exam Right Left Lids/Lashes Clean and clear Clean and clear Conjunctiva/Sclera White and quiet White and quiet Cornea Clear Clear Anterior Chamber Deep and quiet, angles open Deep and quiet, angles open Iris Round and reactive, (-) NVI Round and reactive, (-) NVI Lens Clear Clear Fundus Exam Right Left Vitreous Clear Clear Disc [place] and healthy, (-) NVD [place] and healthy, (-) NVD C/D Ratio Vertical 0.25 0.20 C/D Ratio Horizontal 0.25 0.20 Macula Flat with even pigmentation, (-) DME Flat with even pigmentation, (-) DME Vessels Normal course and caliber, (-) NVE Normal course and caliber, (-) NVE Periphery No holes/tears/detachments 360 No holes/tears/detachments 360 Refraction Wearing Rx Sphere Cylinder Right +1.75 Sphere Left +2.00 Sphere Type: NVO Manifest Refraction (Subjective) Sphere Cylinder Dist VA Right +0.75 Sphere 20/20 Left +1.00 Sphere 20/20 Final Rx Sphere Cylinder Right +0.75 Sphere Left +1.00 Sphere Type: Distanace Expiration Date: 01/08/2026 Assessment and Plan Diagnoses and all orders for this visit: Type 2 diabetes 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 ophthalmic manifestations (CMS/HCC) - No diabetic retinopathy or diabetic macular edema both eyes (OU) - Discussed importance of tight blood glucose control, medication compliance and regular follow up with PCP. Today's exam notes will be made available for PCP to review. Hypermetropia, bilateral - Dispensed updated spec Rx. 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 New specs improve distance visual acuity (VA) RTC in 1 year for comprehensive eye exam or soon as needed Gina Stringer, OD 01/08/2025, 4:18 PM Gui Developer Source: __ None __ Bilingual Staff __ Qualified Staff Cctv Technician __ Telephone Gui Developer; ID# _x_ Gui Developer brought by patient (family member, friend, LEASING COORDINATOR, etc) __ In person research electrician __ Ipad Gui Developer; ID#: Language Spoken During Exam: Indonesian [1] Current Outpatient Medications Medication Sig Dispense Refill albuterol (Ventolin HFA) 108 (90 Base) MCG/ACT inhaler INHALE 2 PUFFS EVERY 4 HOURS NEEDED FOR WHEEZING AND SHORTNESS OF BREATH 18 g 11 Alcohol Swabs (Alcohol Prep) 70 % pads TEST BLOOD SUGAR TWICE DAILY Blood Glucose Monitoring Suppl ([employer] [place] Lite) w/Device kit TEST BLOOD SUGAR TWICE DAILY 1kit 0 Blood Pressure kit 1 each 2 times daily. Call [facility] if BP readings are > 140/80 1 kit 0 cholecalciferol (Vitamin D-3) 25 MCG (1000 UT) tablet Take 2 tablets daily. 60 tablet 0 escitalopram (Lexapro) 5 MG tablet TAKE 1 TABLET BY MOUTH EVERY MORNING 90 tablet 1 ferrous gluconate (Fergon) 324 (38 Fe) MG tablet Take 1 pill daily. Take with a full glass of wateror Vit C containing juice, and ideally 1 hour before food or 2 hours after food. Repeat blood work after medication done. 30 tablet 0 fluticasone (Flonase) 50 MCG/ACT nasal spray Administer 1 spray into each nostril Once per day. 16 g 2 FREESTYLE LITE test strip Use to check blood sugar twice daily 100 each 11 ibuprofen 600 MG tablet TAKE 1 TABLET BY MOUTH EVERY 8 HOURS NEEDED FOR PAIN OR FEVER. TAKE WITHFOOD 100 tablet 3 losartan-hydroCHLOROthiazide (Hyzaar) 100-25 MG tablet TAKE 1 TABLET BY MOUTH EVERY DAY 90 tablet 1 nabumetone (Relafen) 500 MG tablet TAKE 1 TABLET BY MOUTH TWICE DAILY NEEDED BACK PAIN 60 tablet3 rosuvastatin (Crestor) 20 MG tablet Take 1 tablet (20 mg) by mouth at bedtime. (Cholesterol) 90 tablet 1 Spacer/Aero-Holding Chambers (OptiChamber Beatrice) misc 1 each every 4 (four) hours if needed (asthma). 1 each 0 TRUEplus Lancets 33G misc USE 1 TO TEST BLOOD SUGAR TWICE DAILY No current facility-administered medications for this visit. [2] History reviewed. No pertinent past medical history. [3] Past Surgical History: Procedure Laterality Date CHOLECYSTECTOMY 2019 TUBAL LIGATION Bilateral 2012 WISDOM TOOTH EXTRACTION [4] Family History Problem Relation Name Age of Onset Hypertension Father Diabetes Father Lung cancer Maternal Grandfather Breast cancer Neg Hx Ovarian cancer Neg Hx Colon cancer Neg Hx [5] Allergies Allergen Reactions Penicillins Hives and Swelling documented in this encounter Plan of Treatment Upcoming Encounters Date Type Department Care Team ([facility] st Contact Info) Description 02/05/2025 11:15 AM EDT Office Visit [facility] MED & PEDS [address] [place], [place] [phone] Chery Nicole FNP [address] [place] [address] documented as of this encounter Visit Diagnoses Diagnosis Type 2 diabetes 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 ophthalmic manifestations (CMS/HCC)- Primary Hypermetropia, bilateral documented in this encounter Additional Health Concerns Assessment Noted Time PHQ-9 Depression Total Score: 11 024 10:16 AM EDT documented as of this encounter Care Teams Hogshead Press Operator Relationship Specialty Start Date End Date Chery Nicole FNP [address] [place] [address] PCP - General Family Medicine 01/07/22 documented as of this encounter
--- OUTSIDE RECORDS SUMMARY | 2025-01-10 08:45 | XMS_ITS | Encounter Summary ---
Author Organization [employer] Address [address] [place] [address] Care Team Providers Care Safety Engineer Name Role Phone Chery Nicole ROBIN Primary Care Provider [phone] Encounter Details Date Type Department Care Team (Latest Contact Info) Description 01/08/2025 Travel Social History Tobacco Use Types Packs/Day [...] with others, in a hotel, in a fci, living outside on the street, on a [...] Care Team (Late st Contact Info) Description 02/05/2025 11:15 AM EDT Office Visit [facility] MED & PEDS [address] [place] [address] Chery Nicole FNP [address] [place] [address] documented as of this encounter Visit Diagnoses Not on filedocumented in this encounter Additional Health Concerns Assessment Noted Time PHQ-9 Depression Total Score: 11 024 10:16 AM EDT documented as of this encounter Care Teams Safety Engineer Relationship Specialty Start Date End Date Chery Nicole FNP [address] [place] [address] PCP - General Family Medicine 01/07/22 documented as of this encounter
--- OUTSIDE RECORDS SUMMARY | 2025-01-10 08:45 | XMS_ITS | Encounter Summary ---
Author Organization [employer] Address [address] [place] [address] Care Team Providers Care Gas Producer Name Role Phone Chery Nicole Primary Care Provider [phone] Reason for Visit * Reason Onset Date Comments Letter for School/Work 05/14/2022 Encounter Details Date Type Department Care Team ([facility] st Contact Info) Description 05/14/2022 Telephone [facility] MEDICINE [address] [place] [address] Chery Nicole FNP [address] [place] [address] Letter for School/Work Social History Tobacco Use [...] her with anxiety Please contact pt at [phone] documented in this encounter Plan of Treatment Upcoming Encounters Date Type Department Care Team (Late st Contact Info) Description 02/05/2025 11:15 AM EDT Office Visit [facility] MED & PEDS [address] [place] [address] Chery Nicole FNP [address] [place] [address] documented as of this encounter Visit Diagnoses Not on filedocumented in this encounter Care Teams Gas Producer Relationship Specialty Start Date End Date Chery Nicole FNP [address] [place] [address] PCP - General Family Medicine 01/07/22 documented as of this encounter
--- OUTSIDE RECORDS SUMMARY | 2025-01-10 08:45 | XMS_ITS | Encounter Summary ---
Author Organization [employer] Address [address] [place] [id number] Care Team Providers Care Career Development Consultant Name Role Phone Chery Nicole Primary Care Provider [phone] Encounter Details Date Type Department Care Team (Late Contact Info) Description 07/15/2022 Orders Only [facility] [address] [place] [address] Kitty Manzano LPN Social History Tobacco Use [...] Description 02/05/2025 11:15 AM EDT Office Visit [facility] [address] [place] [address] Chery Nicole FNP [address] [place] [address] documented as of this encounter Visit Diagnoses Not on filedocumented in this encounter Care Teams Career Development Consultant Relationship Specialty Start Date End Date Chery Nicole FNP [address] [place] [address] PCP - General Family Medicine 01/07/22 documented as of this encounter
--- OUTSIDE RECORDS SUMMARY | 2025-01-10 08:45 | XMS_ITS | Encounter Summary ---
Author Organization [employer] Address [address] [place] [address] [address] [address] Care Team Providers Care Vba Programmer Name Role Phone Chery Nicole Primary Care Provider [phone] Reason for Visit * Reason Comments Med Refill Encounter Details Date Type Department Care Team ([facility] [address] Contact Info) Description 02/15/2024 Refill [facility] [address] [place], [place] [id number] Chery Nicole FNP [address] [place] [address] Social History Tobacco Use Types Packs/Day Years [...] Description 02/05/2025 11:15 AM EDT Office Visit [facility] [address] [place] [address] Chery Nicole FNP [address] [place] [address] documented as of this encounter Visit Diagnoses Not on filedocumented in this encounter Additional Health Concerns Assessment Noted Time PHQ-9 Depression Total Score: 11 024 10:16 AM EDT documented as of this encounter Care Teams Vba Programmer Relationship Specialty Start Date End Date Chery Nicole FNP [address] [place] [address] PCP - General Family Medicine 01/07/22 documented as of this encounter
--- OUTSIDE RECORDS SUMMARY | 2025-01-10 08:45 | XMS_ITS | Clinical Summary ---
Author Organization [employer] Address [address] [place] [address] 7 [place] [address] Care Team Providers Care [place] Name Role Phone ChadwickChery vickers ROBIN Primary Care Provider [phone] Allergies Active Allergy Reactions Criticality Noted Date Comments Penicillins Hives,Swelling 07/18/2021 Medications * This document contains information received from the source organization and may not represent a complete record from that organization. Alcohol Swabs (Alcohol Prep) 70 % pads TEST BLOOD SUGAR TWICE DAILY 08/18/19 23 Active TRUEplus Lancets 33G misc USE 1 TO TEST BLOOD SUGAR TWICE DAILY 08/18/19 23 Active nabumetone (Relafen) 500 MG tabletIndications :Chronic bilateral low back pain without sciatica TAKE 1 TABLET BY MOUTH TWICE DAILY NEEDED BACK PAIN 60 tablet 3 03/10/20 23 Active Blood Glucose Monitoring Suppl (FreeStyle Warbranch Lite) w/Device kitIndications:Ty pe 2 diabetes 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 complication, without long-term current use of insulin ([facility]) TEST BLOOD SUGAR TWICE DAILY 1 kit 11/26/19 24 Active FREESTYLE LITE test stripIndications: 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, without long-term current use of insulin ([facility]) Use to check blood sugar twice daily 100 each 11 11/26/19 24 Active ibuprofen 600 MG tablet TAKE 1 TABLET BY MOUTH EVERY 8 HOURS NEEDED FOR PAIN OR FEVER. TAKE WITH FOOD 100 tablet 3 06/27/19 25 Active Spacer/Aero-Holdi ng Chambers (OptiChamber Beatrice) misc 1 each every 4 (four) hours if needed (asthma). 1 each 08/01/19 25 Active Blood Pressure kit 1 each 2 times daily. Call [facility] if BP readings are > 140/80 1 kit 08/01/19 25 026 Active albuterol (Ventolin HFA) 108 (90 Base) MCG/ACT inhaler INHALE 2 PUFFS EVERY 4 HOURS NEEDED FOR WHEEZING AND SHORTNESS OF BREATH 18 g 11 09/13/19 25 Active ferrous gluconate (Fergon) 324 (38 Fe) MG tabletIndications :Microcytic anemia Take 1 pill daily. Take with a full glass of water or Vit C containing juice, and ideally 1 hour before food or 2 hours after food. Repeat blood work after medication done. 30 tablet 09/08/19 25 Active cholecalciferol (Vitamin D-3) 25 MCG (1000 UT) tabletIndications :Microcytic anemia,Vitamin D insufficiency Take 2 tablets daily. 60 tablet 09/08/19 25 Active fluticasone (Flonase) 50 MCG/ACT nasal spray Administer 1 spray into each nostril Once per day. 16 g 2 10/31/19 25 Active escitalopram (Lexapro) 5 MG tabletIndications :Other depression TAKE 1 TABLET BY MOUTH EVERY MORNING 90 tablet 1 11/22/19 25 Active losartan-hydroCHL OROthiazide (Hyzaar) 100-25 MG tablet TAKE 1 TABLET BY MOUTH EVERY DAY 90 tablet 1 11/22/19 25 Active rosuvastatin (Crestor) 20 MG tablet Take 1 tablet (20 mg) by mouth at bedtime. (Cholesterol) 90 tablet 1 12/19/19 25 026 Active atorvastatin (Lipitor) 10 MG tablet Take 1 tablet by mouth at bed time. 12/10/19 22 025 Discontinu ed(Dose adjustment ) Tirzepatide-Weigh t Management (Zepbound) 5 MG/0.5ML solution auto-injector Inject 0.5 mL (5 mg) under the skin 1 (one) time per week. 2 mL 1 11/25/19 25 025 Active Problems Problem Noted Date Diagnosed Date Cubital tunnel syndrome on right 11/24/2024 Overview (11/24/2024): 09/19/24: NCS/EMG demonstrated mild-moderate bilat carpal tunnel syndrome and mild right cubital tunnel syndrome. Assessment & Plan (12/18/2024 1:57 PM EDT): - Consult with [facility], plan to proceed with surgery Assessment & Plan (11/24/2024 1:12 PM EDT): - Consult with [facility], plan to proceed with surgery Bilateral carpal tunnel syndrome 08/21/2024 Overview (11/24/2024): 09/19/24: NCS/EMG demonstrated mild-moderate bilat carpal tunnel syndrome and mild right cubital tunnel syndrome. Assessment & Plan (12/18/2024 1:57 PM EDT): Consult with [facility], plan to proceed with carpal tunnel release. Right side first. Assessment & Plan (11/24/2024 1:12 PM EDT): Consult with [facility], plan to proceed with carpal tunnel release. Right side first. Assessment & Plan (08/21/2024 3:14 PM EDT): Order for bilateral EMG placed 08/21/24 Microcytic anemia 03/19/2024 Assessment & Plan (11/24/2024 1:10 PM EDT): -Microcytic anemia w/ low iron and Vit D. 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 -Initiated PO iron and Vit D supplementation Feb 2024, re-start August 2024 -Denies active symptoms of anemia -ED/follow up precautions reviewed -Repeat lab work Assessment & Plan (08/21/2024 3:15 PM EDT): [...] 59.9 in adult 01/02/2024 Assessment & Plan (11/24/2024 1:15 PM EDT): Encouraged to continue with nutrition and physical activity interventions Tx with Wegovy 2023 with good response Baseline weight: 326lbs Today's weight: 325lbs Increase to Zepbound 5mg subcutaneous weekly Assessment & Plan (08/21/2024 3:13 PM EDT): [...] physical activity interventions 01/03/24: Wegovy was approved PA#[id number]. Exp: 07/05/24. 0.25mg dose started Jan 2024. Reviewed med safety and SE Assessment & Plan (03/19/2024 4:01 PM EST): Encouraged to continue with nutrition and physical activity interventions 01/03/24: Wegovy was approved PA#[id number]. Exp: 07/05/24. 0.25mg dose started Jan 2024. Reviewed med safety and SE Assessment & Plan (02/24/2024 3:29 PM EDT): Encouraged to continue with nutrition and physical activity interventions 01/03/24: Wegovy was approved PA#[id number]. Exp: 07/05/24. Plan to start 0.25mg subcutaneous [...] schedule Last PE: 02/04/24 OPH: LEANN at [facility] in Dec 2022. [...] tx Type 2 diabetes mellitus 07/31/2021 Overview (11/24/2024): Lab Results Component Value Date HGBA1C 6.7 (A) 11/24/2024 HGBA1C 7.4 (A) 08/21/2024 HGBA1C 6.7 (A) 02/04/2024 HGBA1C 6.9 (H) 07/18/2021 A1c: Improved, well controlled Microalbumin/Cr:Alb: ordered 11/24/24 Lipids: TC 144, HDL 37, LDL 88, TG 98 on 01/03/24 Eye exam: Dec 2022 at [facility] Dental: due PNA (PPSV, then PCV 13): UTD TDap/Td: UTD Foot exam/peripheral pulses: WNL 11/26/23 NICA/ARB: yes Statin: yes Assessment & Plan (11/24/2024 1:10 PM EDT): - Improvement of BG control, now within target - Zepbound increased to 5mg subcutaneous weekly Assessment & Plan (08/21/2024 3:15 PM EDT): [...] due Eye exam: appt November 2022 at [facility] Dental: due PNA (PPSV, then PCV 13): UTD TDap/Td: UTD Foot exam/peripheral pulses: WNL 11/26/23 NICA/ARB: yes Statin: yes Assessment & Plan (04/29/2023 9:36 PM EST): Continue metformin 500mg BID Lab Results Component Value Date HGBA1C 6.1 (A) 04/26/2023 HGBA1C 7.0 (A) 09/14/2022 HGBA1C 6.9 (H) 07/18/2021 Well controlled Microalbumin/Cr:Alb: pending Lipids: Total Cholesterol 159, HDL 38, LDL 98, TG 132 last on 07/18/21. pending Eye exam: appt November 2022 at [facility] Dental: due PNA (PPSV, then PCV 13): UTD TDap/Td: UTD Foot exam/peripheral pulses: next appt NICA/ARB: yes Statin: yes Assessment & Plan (10/28/2022 5:11 PM EDT): Continue metformin 500mg BID Lab Results Component Value Date HGBA1C 7.0 (A) 09/14/2022 Well controlled Microalbumin/Cr:Alb: pending Lipids: Total Cholesterol 159, HDL 38, LDL 98, TG 132 last on 07/18/21 Eye exam: appt November 2022 at [facility] Dental: due PNA (PPSV, then PCV 13): UTD TDap/Td: UTD Foot exam/peripheral pulses: next appt NICA/ARB: yes Statin: yes Assessment & Plan (09/19/2022 5:52 PM EDT): Continue metformin 500mg BID Lab Results Component Value Date HGBA1C 7.0 (A) 09/14/2022 Well controlled Microalbumin/Cr:Alb: pending Lipids: Total Cholesterol 159, HDL 38, LDL 98, TG 132 last on 07/18/21 Eye exam: due Dental: due PNA (PPSV, then PCV 13): administered TDap/Td: administered Foot exam/peripheral pulses: due NICA/ARB: yes Statin: yes Essential hypertension 07/18/2021 Assessment & Plan (12/18/2024 1:57 PM EDT): BP goal < 140/90mmHg, well controlled Cont Losartan/HCTZ 100-25 mg daily. Reviewed med safety and SE. Encourage goal low salt diet and 150 mins physical activity weekly Monitor home BP and contact the clinic if BP is persistently >140/90 mmHg Assessment & Plan (08/28/2024 10:47 AM EDT): [...] Assessment & Plan (10/28/2022 5:10 PM EDT): BP goal < 140/90mmHg Continue losartan/HCTZ 100-12.5 mg daily. Reviewed med safety and SE. Encourage goal low salt diet and 150 mins physical activity weekly Monitor home BP and contact the clinic if BP is persistently >140/90 mmHg Assessment & Plan (09/19/2022 5:50 PM EDT): BP goal < 140/90mmHg, currently above goal Increase to losartan losartan/HCTZ 100-12.5 mg daily. Reviewed med safety and SE. Encourage goal low salt diet and 150 mins physical activity weekly Monitor home BP and contact the clinic if BP is persistently >140/90 mmHg Follow up in 1 month with home [...] the following plan: provided contact info for [facility]-[phone], for OP and family therapy -No active SI/HI/thoughts of self harm, safety planning completed -Continue with lexapro 5mg nightly. Consider med adjustment and/or adjunct at follow up appt Resolved Problems Problem Noted Date Diagnosed Date Resolved Date Acute bronchospasm due to viral infection 10/30/2024 11/24/2024 Assessment & Plan (10/31/2024 8:02 PM EDT): Unclear if it is only related to virus vs asthma. Will order PFTs in 1 or 2 months and she is to follow-up with PCP Use albuterol every 6 hours x 5 days then as needed Avoid secondhand smoking, she is a non-smoker. Subacute maxillary sinusitis 10/30/2024 11/24/2024 Assessment & Plan (10/31/2024 8:01 PM EDT): Rapid viral test is negative, I will treat with antibiotics due to duration of symptoms. Rest (sleep at least 8 hours a night) out of work x 2 days Hydrate with plenty of water (avoid caffeine and alcohol). Use saline nose drops to loosen mucus + Flonase Take Acetaminophen (Tylenol )/Ibuprofen as needed to reduce fever, headache, body aches or discomfort Gargle with salt water and use throat sprays/lozenges for throat pain. Use heated, humidified air. If you do not have a humidifier, take hot showers. Cover coughs and sneezes using the crook of your elbow. If you have a fever, stay home and away from others (self isolation) until fever-free for 72 hours (temperature should be less than 100 F without medication). Acute conjunctivitis of right eye 08/28/2024 11/24/2024 Assessment & Plan (08/28/2024 10:48 AM EDT): Keep eye clean and dry, can clean it with with baby shampoo several times per day. Apply erythromycin ointment 3-4 times per day to affected eye, wash your hands with soap and water after application. 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 (CMS/HCC) (Primary Dx); Hypermetropia, bilateral 01/08/2025 Travel 12/28/2024 Orders Only GENERIC EXTERNAL DATA DEPARTMENT Provider, Generic External Data 12/18/2024 9:30 AM EDT Office Visit [facility] CHC MED & PEDS [address] [place] [address] Chery Nicole, ROBIN Cubital tunnel syndrome on right (Primary Dx); Bilateral carpal tunnel syndrome; Pre-op evaluation; 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, without long-term current use of insulin (CMS/HCC); Essential hypertension 12/18/2024 Travel 12/13/2024 Orders Only GENERIC EXTERNAL DATA DEPARTMENT Provider, Generic External Data 11/28/2024 Orders Only [facility] MEDICINE [address] [place], [place] [id number] Surjit Dawn CNM Menorrhagia with regular cycle (Primary Dx) 11/28/2024 Orders Only [address] [address] Surjit Dawn CNM Menorrhagia with regular cycle (Primary Dx); Screening examination for venereal disease 11/28/2024 Results Follow-Up [address] [address] Surjit Dawn CNM Partial Thromboplastin Time, Activated (APTT), Prothrombin Time-INR, von Willebrand Factor Antigen, Factor 8 activity 11/24/2024 8:45 AM EDT Office Visit [facility] MED & PEDS [address] [place] [address] Chery Nicole FNP Class 3 severe obesity with body mass index (BMI) of 50.0 to 59.9 in adult (Primary Dx); 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, without long-term current use of insulin ([facility]); Microcytic anemia; Cubital tunnel syndrome on right; Bilateral carpal tunnel syndrome 11/24/2024 Travel 11/24/2024 Telephone [facility] [address] [place] [address] Chery Nicole FNP chart prep 11/19/[address] [address] Chery Nicole FNP Other depression 11/13/[address] [address] Surjit Dawn CNM Reminder to get labs done. 11/13/[address] [address] Surjit Dawn CNM Lab Results 10/30/2024 10:00 AM EDT Office Visit [facility] WALK[facility] [address] [place] [phone] Lisbeth Ness MD Subacute maxillary sinusitis (Primary Dx); Acute bronchospasm due to viral infection; Cough in adult patient 10/26/2024 Orders Only [address] [address] Surjit Dawn CNM Menorrhagia with regular cycle (Primary Dx) 10/11/2024 Telephone [facility] [address] [place] [address] Chery Nicole FNP EMG/NCS Results from Last 3 Months Immunizations Immunization Administration [...] with others, in a hotel, in a usp, living outside on the street, on a [...] Sign Reading Time Taken Comments Blood Pressure 128/82 12/18/2024 8:58 AM EDT Pulse 76 12/18/2024 8:58 AM EDT Temperature 37.1 C (98.7 F) 12/18/2024 8:58 AM EDT Respiratory Rate 20 12/18/2024 8:58 AM EDT Oxygen Saturation 100% 10/30/2024 9:18 AM EDT Inhaled Oxygen Concentration - - Weight 147 kg (323 lb) 12/18/2024 8:58 AM EDT Height 170.2 cm (5' 7 ) 12/18/2024 8:58 AM EDT Body Mass Index 50.59 12/18/2024 8:58 AM EDT Plan of Treatment Upcoming Encounters Date Type Department Care Team (Late st Contact Info) Description 02/05/2025 11:15 AM EDT Office Visit [facility] CH[facility] MED & PEDS [address] [place] [address] Chery Nicole FNP [address] [place] [address] Health Maintenance Due Date Last Done Comments HPV Vaccines (1 - 3-dose series) 2003 Hepatitis B Vaccines (3 of 3 - 19+ 3-dose series) 11/23/2024 09/28/2024, 02/04/2024 Diabetes: Foot Exam 11/24/2024 11/25/2023 Influenza Vaccine (#1) 2025 04/26/2023 Alcohol/Substance Use Screening 02/03/2025 02/04/2024 SDOH Screening 02/03/2025 02/04/2024 Depression Monitoring 02/17/2025 02/04/2024, 024 Postponed from 08/03/2024 (Other Medical Reasons) Diabetes: Hemoglobin A1C 06/20/2025 025, 11/24/2024, 08/21/2024, Additional history exists Cervical Cancer Screening 09/28/2025 Family Planning (PISQ) 09/28/2025 09/28/2024 HPV/Cotest 09/28/2025 09/28/2024 Pap Smear 09/28/2025 09/28/2024 Disability Screening 11/24/2025 11/24/2024 Lipid Panel 11/24/2025 11/24/2024, 0801/2024, 04/26/2023, Additional history exists Diabetes: Urine Protein Screening 12/18/2025 12/18/2024 Tobacco Screening 01/08/2026 01/08/2025 Eye Exam 01/08/2027 01/08/2025, 12/16, 01/08/2025, Additional history exists DTaP/Tdap/Td Vaccines (2 - Td or Tdap) 09/14/2032 09/14/2022 Zoster Vaccines (1 of 2) 2038 RSV Patients and Patients Aged 60 years or older (1 - 1-dose 75+ series) 2063 Pneumococcal Vaccine: Pediatrics (0 to 5 Years) and At-Risk Patients (6 to 49) Years Completed 09/14/2022 HIV Screening Completed 01/03/2024, 07/18/2021 [...] Procedure Name Priority Date/Time Associated Diagnosis Comments GLUCOSE, WHOLE BLOOD Routine 12/28/2024 7:33 AM EDT ECG 12-LEAD Routine 12/18/2024 2:08 PM EDT Cubital tunnel syndrome on right Pre-op evaluation CHLAMYDIA/TRICHOMONAS /NEISSERIA GONORRHOEAE, PCR, URINE Routine 12/18/2024 9:50 AM EDT Menorrhagia with regular cycle Screening examination for venereal disease ALBUMIN, RANDOM URINE W/CREATININE Routine 12/18/2024 9:50 AM EDT 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, without long-term current use of insulin ([facility]) HEMOGLOBIN A1C Routine 12/18/2024 9:47 AM EDT Pre-op evaluation CBC WITH AUTO DIFFERENTIAL Routine 12/18/2024 9:47 AM EDT Pre-op evaluation BASIC METABOLIC PANEL Routine 12/13/2024 1:50 PM EDT LIPID PANEL, STANDARD Routine 11/24/2024 9:52 AM EDT 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, without long-term current use of insulin ([facility]) VITAMIN D,25-OH,TOTAL,IA Routine 11/24/2024 9:52 AM EDT Microcytic anemia FERRITIN Routine 11/24/2024 9:52 AM EDT Microcytic anemia IRON AND TOTAL IRON BINDING CAPACITY Routine 11/24/2024 9:52 AM EDT Microcytic anemia CBC WITH AUTO DIFFERENTIAL Routine 11/24/2024 9:52 AM EDT Microcytic anemia POCT GLYCATED HEMOGLOBIN, TOTAL Routine 11/24/2024 9:04 AM EDT 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, without long-term current use of insulin ([facility]) POCT GLUCOSE Routine 11/24/2024 9:03 AM EDT 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, without long-term current use of insulin ([facility]) FACTOR 8 ACTIVITY Routine 11/21/2024 9:1 1 AM EDT Menorrhagia with regular cycle VON WILLEBRAND FACTOR ANTIGEN Routine 11/21/2024 9:11 AM EDT Menorrhagia with regular cycle PROTHROMBIN TIME-INR Routine 11/21/2024 9:11 AM EDT Menorrhagia with regular cycle APTT Routine 11/21/2024 9:11 AM EDT Menorrhagia with regular cycle POCT INFLUENZA B (ID NOW RAPID MOLECULAR) Routine 10/30/2024 9:28 AM EDT Cough in adult patient POCT INFLUENZA A (ID NOW RAPID MOLECULAR) Routine 10/30/2024 9:28 AM EDT Cough in adult patient POCT RAPID COVID ANTIGEN Routine 10/30/2024 9:20 AM EDT Cough in adult patient US PELVIS COMPLETE Urgent 10/25/2024 2: 58 PM EDT HPV DNA, LOW/HIGH RISK Routine 09/28/2024 9:21 AM EDT PAP SMEAR Routine 09/28/2024 9:21 AM EDT Cervical cancer screening HEPATITIS C VIRAL RNA, QUANTITATIVE, REAL-TIME PCR Routine 01/03/2024 8:16 AM EDT Healthcare maintenance HIV 1/2 ANTIGEN/ANTIBODY, FOURTH GENERATION W/RFL Routine 01/03/2024 8:16 AM EDT Healthcare maintenance from Last 3 Months or Most Recently Relevant to Health Maintenance Results * (ABNORMAL) Glucose, Whole Blood (12/28/2024 7:33 AM EDT) Glucose, Whole Blood 144(H) 60 - 115 mg/dL [facility] Comment:METER #: [id number] 12/28/2024 7:33 AM EDT 12/28/2024 7:37 AM EDT us Generic External Data Provider LAB BLOOD ORDERAB LES Final Result [facility] [address] [place] [phone] * ECG 12 lead (12/18/2024 2:08 PM EDT) Narrative Chery Nicole FNP - 12/18/2024 2:08 PM EDT P/Pr: 120/152 ms QRS: 94 ms QT/Qtc: 410/436 ms HR: 68 bpm NSR without T-wave or ST changes Chery KELLY ECG ORDERABLES Final Result * Chlamydia/N. Gonorrhoeae, PCR, Urine (12/18/2024 9:50 AM EDT) CT PCR, Urine NOT DETECTED Not Detect. [facility] Comment:A not detected test result does not exclude the possibilityof infection because test results can be affected byimproper specimen collection, concurrent antibiotic therapy,or the number of organisms in the specimen which may bebelow the sensitivity of the test. As with many diagnostictests, results from the Xpert CT/NG assay should beinterpreted in conjunction with other laboratory andclinical data available to the clinician.The Xpert CT/NG assay should not be used for the evaluationof suspected sexual abuse or for other medico-legalindications. Additional testing is recommended in anycircumstance when false positive or false negative resultscould lead to adverse medical, social or psychologicalconsequences. NG PCR, Urine NOT DETECTED Not Detect. [facility] Comment:A not detected test result does not exclude the possibilityof infection because test results can be affected byimproper specimen collection, concurrent antibiotic therapy,or the number of organisms in the specimen which may bebelow the sensitivity of the test. As with many diagnostictests, results from the Xpert CT/NG assay should beinterpreted in conjunction with other laboratory andclinical data available to the clinician.The Xpert CT/NG assay should not be used for the evaluationof suspected sexual abuse or for other medico-legalindications. Additional testing is recommended in anycircumstance when false positive or false negative resultscould lead to adverse medical, social or psychologicalconsequences. Urine (Urine, Random) 12/18/2024 9:50 AM EDT 12/18/2024 1:50 PM EDT Surjit Dawn [facility] URINE ORDERABLES Yokasta crockett Result [facility] [address] [place] [phone] * (ABNORMAL) Albumin, Random Urine W/Creatinine (12/18/2024 9:50 AM EDT) Creatinine, Urine 117.78 mg/dL [facility] Microalbumin Urine 99.0 mg/L [facility] Microalbum Creatinine Ratio Ur 84.0(H) <30 ug/mg cr [facility] Comment:Albumin/Creatinine R atio Reference Ranges: Normal: < 30 ug/mg creatinine Microalbuminuria: 30 - 300 ug/mg creatinineClinical Albuminuria: > 300 ug/mg creatinine Urine 12/18/2024 9:50 AM EDT 12/18/2024 1:50 PM EDT us Chery Nicole [employer] LAB URINE ORDERABLES Final Res ult [facility] [address] [place] [phone] [phone] * (ABNORMAL) CBC auto differential (12/18/2024 9:47 AM EDT) Only the most recent of2 resultswithin the time period is included. White Blood Count 6.3 4.8 - 10.8 X10*3/uL [facility] Red Blood Count 4.95 4.20 - 5.50 X10*6/uL [facility] Hemoglobin 11.0(L) 12.0 - 16.0 g/dl [facility] Hematocrit 36.1(L) 37.0 - 47.0 % [facility] Mean Corpuscular Volume 72.9(L) 80.0 - 98.0 fL [facility] Mean Corpuscular Hemoglobin 22.2(L) 27.0 - 33.0 pg [facility] Mean Corpuscular HGB Conc 30.5(L) 31.0 - 35.0 g/dl [facility] Red Cell Distribution Width 19.1(H) 11.0 - 16.0 % [facility] Platelet Count 185 160 - 400 X10*3/uL [facility] Neutrophils Percent Auto 65.8 45 - 73 % [facility] Imm Gran Pct Auto 0.5(H) 0.0 - 0.4 % [facility] Lymphocytes Percent Auto 25.6 20 - 40 % [facility] Monocytes Percent Auto 7.0 2 - 11 % [facility] Eosinophils Percent Auto 0.8 0 - 4 % [facility] Basophils Percent Auto 0.3 0 - 2 % [facility] NRBC Pct Auto 0.0 0.0 - 0.2 /100WBC [facility] Neutrophils Absolute Auto 4.2 2.0 - 8.3 x10*3/uL [facility] Imm Gran Abs Auto 0.03 0.00 - 0.03 X10*3/uL [facility] Lymphocytes Absolute Auto 1.6 1.2 - 4.9 X10*3/uL [facility] Monocytes Absolute Auto 0.4 0.1 - 1.2 X10*3/uL [facility] Eosinophils Absolute Auto 0.1 0.0 - 0.4 X10*3/uL [facility] Basophils Absolute Auto 0.0 0.0 - 0.2 X10*3/uL [facility] NRBC Abs Auto 0.000 0.0 - 0.012 X10*3/uL [facility] Blood Venous blood specimen / Unknown 12/18/2024 9:47 AM EDT 12/18/2024 1:54 PM EDT Chery Nicole [employer] LAB BLOOD ORDERABLES Final Res ult [facility] [address] [place] [phone] * (ABNORMAL) Hemoglobin A1c (12/18/2024 9:47 AM EDT) Hemoglobin A1c 6.9(H) <6.0 % [facility] Comment:Hemoglobin A1C Refer ence Range Adults: 4.8 - 6.0 % Non diabetic: < 6.0 % Goal: < 7.0 %Additional Action Suggested: > 8.0 %Note: Hemoglobin A1c results are invalid for patients with abnormal amounts of HbF. Blood transfusions may impact the HbA1c concentration in the patient sample. Estimated Average Glucose 151 mg/dL [facility] Comment:eAG = Estimated ave rage glucose which is %A1C expressed asaverage glucose, using the formula of the X4W-WubqzxoFymoyso Glucose study (ADAG), Diabetes Care, Vol.31,#8,Dec. 2007 Blood Venous blood specimen / Unknown 12/18/2024 9:47 AM EDT 12/18/2024 1:54 PM EDT us Chery Nicole SALES CORRESPONDENT LAB BLOOD ORDERABLES Final Res ult Performing Organization Address [facility]/ZIP Co de Phone Number [facility] [address] [place] [phone] * (ABNORMAL) Basic Metabolic Panel (12/13/2024 1:50 PM EDT) Sodium 137 135 - 145 mmol/L [facility] Potassium 4.1 3.3 - 5.1 mmol/L [facility] Comment:Slight Hemolysis.Int erpret result with caution. Chloride 107 96 - 108 mmol/L [facility] Carbon Dioxide 22 22 - 29 mmol/L [facility] Anion Gap 12 12 - 20 [facility] Urea Nitrogen (BUN) 7(L) 9 - 16 mg/dL [facility] Creatinine, Serum 0.52 0.5 - 1.4 mg/dL [facility] Creatinine Clr Calc Pharmacy 228.6 [facility] Comment:Provided height and weight: 170.18 cm,149.685 kg.eGFR (calculated from the MDRD study equation) and eCrCl(calculated from the Cockcroft-Gault equation) are based ondifferent parameters and may not yield comparable results.If eCrCl result is absurd, please check patient'sheight/weight. Estimated Glomerular Filt Rate >60 [facility] Comment:Chronic Kidney Disea se: Estimated GFR < 60 mL/min/1.03g5Ltnlix Kidney Disease: Estimated GFR < 15 mL/min/1.73m2 Glucose 89 60 - 115 mg/dL [facility] Calcium 8.9 8.4 - 10.2 mg/dL [facility] 12/13/2024 1:50 PM EDT 12/13/2024 1:50 PM EDT us Generic External Data Provider LAB BLOOD ORDERAB LES Final Result Performing Organization Address [facility]/ZIP Co de Phone Number [facility] [address] [place] [address] [phone] * (ABNORMAL) Vitamin D, 25-Hydroxy, Total, Immunoassay (11/24/2024 9:52 AM EDT) Vitamin D 25-OH Total 24.6(L) >30 ng/mL [facility] Comment: Health Based Reference Values*< 20 ng/mL Yztwuemxm18-91 ng/mL Insufficient> 30 ng/mL Sufficient*Patti PHILIP. N Engl J Med. 2007;357:266-280There is [...] Vitamin D results fromdifferent laboratories and methodologies. Published datademonstrated that results from patients undergoinghemodialysis may show a negative bias when tested withvarious automated 25-OH vitamin D assays when compared toLC-MS/MS.When testing samples from patients whose predominant form ofVitamin D is Vitamin D2, such as patients receiving VitaminD2 supplementation, results that are subtherapeutic shouldbe confirmed with another method such as LC-MS/MS. Blood Venous blood specimen / Unknown 11/24/2024 9:52 AM EDT 11/24/2024 2:41 PM EDT us Chery Nicole [facility] LAB BLOOD ORDERABLES Final Res ult [facility] [address] [place] [phone] * (ABNORMAL) Iron And Total Iron Binding Capacity (11/24/2024 9:52 AM EDT) Iron 29(L) 30 - 160 mcg/dL [facility] Total Iron Binding Capacity 376 228 - 428 mcg/dL [facility] Percent Iron Saturation 8(L) 15 - 50 % [facility] Unsaturated Iron Binding 347 ug/dL [facility] Blood Venous blood specimen / Unknown 11/24/2024 9:52 AM EDT 11/24/2024 2:41 PM EDT us Chery Nicole SALES CORRESPONDENT LAB BLOOD ORDERABLES Final Res ult Performing Organization Address [facility]/ZIP Co de Phone Number [facility] [address] [place] [phone] * Ferritin (11/24/2024 9:52 AM EDT) Ferritin 32 10 - 122 ng/mL [facility] Blood Venous blood specimen / Unknown 11/24/2024 9:52 AM EDT 11/24/2024 2:41 PM EDT Chery Nicole SALES CORRESPONDENT LAB BLOOD ORDERABLES Final Res ult Performing Organization Address [facility] Co de Phone Number [facility] [address] [place] [phone] * (ABNORMAL) Lipid Panel, Standard (11/24/2024 9:52 AM EDT) Triglycerides 109 <150 mg/dL [facility] Comment:Desirable Triglyceri de: less than 150 mg/dLBorderline High Triglyceride 150-199 mg/dLHigh Triglyceride: 200-499 mg/dLVery High Triglyceride: greater than or equal to 5OO mg/dL Cholesterol 158 <200 mg/dL [facility] Comment:Desirable Cholestero l: less than 200 mg/dLBorderline High Cholesterol: 200-239 mg/dLHigh Cholesterol: greater than 239 mg/dL LDL Cholesterol Calculated 101(H) <100 mg/dL [facility] Comment:Desirable LDL: less than 100 mg/dLNear Optimal/Above Optimal LDL: 110- 129 mg/dLBorderline High LDL: 130-159 mg/dLHigh LDL: 160-189 mg/dLVery High LDL: greater than or equal to 190 mg/dL HDL Cholesterol 36(L) >40 mg/dL [facility] Comment:Desirable HDL: great er than 40 mg/dL Note: This HDL assay may give artificially low results in patients with liver disease. Blood Venous blood specimen / Unknown 11/24/2024 9:52 AM EDT 11/24/2024 2:41 PM EDT Chery Nicole [facility] LAB BLOOD ORDERABLES Final Res ult [facility] [address] [place] [phone] * (ABNORMAL) POCT A1C (11/24/2024 9:04 AM EDT) Hemoglobin A1C 6.7(A) 4.0 - 5.7 % QC Media Lot # Comment:[id number] Lot# Expiration Date Comment:05/18/2026 Blood 11/24/2024 9:04 AM EDT Chery Nicole [facility] POINT OF CARE TEST ENTER/EDIT ORDERABLES Final Result * POCT glucose manually resulted (11/24/2024 9:03 AM EDT) Glucose Blood, POC 134 60 - 200 mg/dL QC Media Lot # Comment:[id number] Lot# Expiration Date Comment:03/15/2025 Blood Capillary blood specimen / Unknown 11/24/2024 9:03 AM EDT Chery Nicole [facility] POINT OF CARE TEST ENTER/EDIT ORDERABLES Final Result * von Willebrand Factor Antigen (11/21/2024 9:11 AM EDT) Von Willebrand Factor Antigen 156 50 - 217 % [facility] Comment:THIS TEST WAS PERFOR MED AT:[facility] [place] [phone] NORIEGA MD,PHD 11/21/2024 9:11 AM EDT 11/21/2024 12:14 PM EDT us Surjit Slaughterni CNM LAB BLOOD ORDERABLES Yokasta l Result Performing Organization Address [facility] Co de Phone Number [facility] [address] [place] [phone] * Partial Thromboplastin Time, Activated (APTT) (11/21/2024 9:11 AM EDT) Partial Thromboplastin Time 30.8 26.0 - 36.8 [facility] Comment:For information rega rding the monitoring of direct thrombininhibitors, please refer to Pharmacy. Blood Venous blood specimen / Unknown 11/21/2024 9:11 AM EDT 11/21/2024 12:14 PM EDT [facility] BLOOD ORDERABLES Yokasta l Result Performing Organization Address [facility] de Phone Number [facility] [address] [place] [phone] * Prothrombin Time-INR (11/21/2024 9:11 AM EDT) Prothrombin Time 11.0 10.9 - 12.4 [facility] INTERNATIONAL NORM RATIO 1.0 0.9 - 1.1 [facility] Comment:INTERNATIONAL NORMAL IZED RATIO (INR) REFERENCE RANGES Reference RangeFor patients not on anticoagulant therapy: 0.9 - 1.1INR ranges for oral anticoagulanttherapy:For prevention and treatment of venous thrombosis and pulmonary embolism: 2.0 - 3.0For acute myocardial infarction with aspirin therapy: 2.0 - 3.0For acute myocardial infarction without aspirin therapy: 3.0 - 4.0For patients with mechanical prosthetic heart valves: 2.5 - 3.5 Blood Venous blood specimen / Unknown 11/21/2024 9:11 AM EDT 11/21/2024 12:14 PM EDT [facility] LAB BLOOD ORDERABLES Yokasta l Result Performing Organization Address [facility] Co de Phone Number [facility] [address] [place] [phone] * Factor 8 activity (11/21/2024 9:11 AM EDT) [facility] Factor VIII Activity, Clotting 152 50 - 180 % normal [facility] Comment:For additional infor mation please refer to:http://education.[employer]/faq/BOD882(This link is being provided for informational/educational purposes only.)THIS TEST WAS PERFORMED AT:[facility] [id number] [place] [address]TYOEFVZCUONG NORIEGA MD,PHD Blood Venous blood specimen / Unknown 11/21/2024 9:11 AM EDT 11/21/2024 12:14 PM EDT us Surjit Dawn [facility] LAB BLOOD ORDERABLES Yokasta l Result [facility] [address] [place] [phone] * Influenza B (ID NOW Rapid Molecular) (10/30/2024 9:28 AM EDT) [facility] Influenza B Negative Negative, Indeterminate [facility] Swab 10/30/2024 9:28 AM EDT Lisbeth Ness MD POINT OF CARE TEST ENTER /EDIT ORDERABLES Final Result [facility] [address] [place] [phone] * Influenza A (ID NOW Rapid Molecular) (10/30/2024 9:28 AM EDT) [facility] Influenza A Negative Negative, Indeterminate [facility] Swab 10/30/2024 9:28 AM EDT Lisbeth Ness MD POINT OF CARE TEST ENTER /EDIT ORDERABLES Final Result [facility] [address] [place] [phone] * POCT Rapid COVID Ag (10/30/2024 9:20 AM EDT) Rapid COVID Ag Negative Swab 10/30/2024 9:20 AM EDT us Lisbeth Ness MD POINT OF CARE TEST ENTER /EDIT ORDERABLES Final Result * Us Pelvis complete (10/25/2024 2:58 PM EDT) Anatomical Region Laterality Modality Pelvis Ultrasound 10/25/2024 2:58 PM EDT Narrative 10/25/2024 2:59 PM EDT [facility] [address] [place] [address] [place] [address] Ultrasound Report Signed Patient: Kitty Marley MR#: [id number] : 1990 Acct:[id number] Age/Sex: 34 / F ADM Date: 10/25/24 Loc: HO.HMGCX Attending Dr: Surjit Dawn CNM Ordering Physician: SURJIT DAWN CNM Date of Service: 10/25/24 Procedure(s): US pelvic complete Accession Number(s): [id number] cc: Chery Nicole; SURJIT DAWN CNM CLINICAL HISTORY: menorrhagia US pelvis transabdominal and transvaginal with Doppler Comparison: None Findings: Transabdominal scanning performed for overall anatomy. Transvaginal scanning performed for additional detail. Anteverted uterus is 8.3 cm length. Normal myometrium. Endometrium 5 mm thickness. Right ovary 2.8 x 2.9 x 1.8 cm. Left ovary 4.4 x 3.4 x 2.8 cm. Left ovarian cyst measuring 34 mm. Normal color Doppler with arterial/venous spectral tracing of both ovaries. No free fluid. IMPRESSION: 1. Unremarkable pelvic ultrasound with no evidence of ovarian torsion. This document has been electronically signed by: José Luis Pyle MD on 10/25/2024 14:58:07 Dictated By: José Luis Pyle MD Signed By: <Electronically signed by José Luis Pyle MD in OV> 10/25/241457 DD/ 57 TD/TT: 10/25/241457 Guest Experience Specialist: Procedure Note Donotuseinterpreter, Image - 10/25/2024 [facility] [address] [place] [address] [place] [address] Ultrasound Report Signed Patient: Kitty Marley#: M [id number] : 1990Acct:[id number] Age/Sex: 34 / FADM Date: 10/25/24 Loc: HO.HMGCX Attending Dr: Surjit Dawn CNM Ordering Physician: SURJIT DAWN CNM Date of Service: 10/25/24 Procedure(s): US pelvic complete Accession Number(s): [id number] cc: Chery Nicole SALES CORRESPONDENT; SURJIT DAWN CNM CLINICAL HISTORY: menorrhagia US pelvis transabdominal and transvaginal with Doppler Comparison: None Findings: Transabdominal scanning performed for overall anatomy. Transvaginal scanning performed for additional detail. Anteverted uterus is 8.3 cm length. Normal myometrium. Endometrium 5 mm thickness. Right ovary 2.8 x 2.9 x 1.8 cm. Left ovary 4.4 x 3.4 x 2.8 cm. Left ovarian cyst measuring 34 mm. Normal color Doppler with arterial/venous spectral tracing of both ovaries. No free fluid. IMPRESSION: 1. Unremarkable pelvic ultrasound with no evidence of ovarian torsion. This document has been electronically signed by: José Luis Pyle MD on 10/25/2024 14:58:07 Dictated By: José Luis Pyle MD Signed By: <Electronically signed by José Luis Pyle MD in OV> 10/25/248 DD/ 57 TD/TT: 10/25/241457 Guest Experience Specialist: us Surjit Dawn CNM IMG US PROCEDURES Final R esult * (ABNORMAL) HPV DNA, Low/High Risk (09/28/2024 9:21 AM EDT) HPV High Risk Positive(A) Negative [facility] HPV Genotype 16 Negative Negative [facility] HPV Genotype 18 Negative Negative [facility] Comment:HPV testing performe d at [facility] (CLIA#[id number]), [address] [place] [id number].Testing for HPV was performed using the Rohit RUSS 6800system. The presence of HPV in the female genital tract isassociated with a number of diseases, including cervicalcarcinoma. The HPV DNA high risk pool tests for HPV 31, 33,35, 39, 45, 51, 52, 56, 58, 59, 66 and 68. The testing forHPV 16 and 18 genotypes has also been performed. A positiveresult indicates detection of nucleic acid sequences fromone or more subtypes, whereas a negative result indicatessuch sequences were not detected. 09/28/2024 9:21 AM EDT 09/29/2024 9:40 AM EDT us Surjit SHEIKH LAB BLOOD ORDERABLES Yokasta crockett Result [facility] [address] [place] [phone] * Pap Smear (09/28/2024 9:21 AM EDT) Swab Cervix uteri structure / Unknown 09/28/2024 9:21 AM EDT 09/29/2024 9:40 AM EDT [facility] - 10/04/2024 10:33 AM EDT ----- ------- Name: Kitty Marley Age/Sex: 34/F : 1990 Unit#: [id number] Attend Dr: SURJIT DAWN CNM Re09/28/24 Status: [facility] REF Location: [facility] Disch: ----- ------- SPEC : [id number] RECD: 09/29/24 STATUS: TUAN CARRION NUM: [id number] KACY: 09/28/[address] [facility] [address]: SURJIT DAWN ENTERED: 09/29/24-1057 SP TYPE: Pap Smr OTHR DR: ORDERED: Pap Smear Interpretation Satisfactory for evaluation. Negative for intraepithelial lesion or malignancy. No endocervical cells seen. HPV High Risk: Positive HPV Genotyping 16: Negative HPV Genotyping 18: Negative Clinical Information LMP: Unknown date Previous PAP test: Unknown date/findings Material Received ThinPrep-Cervical ----- ------- Signed (signature on file) NADINE Cha ([facility]) 10/04/24 1033 ----- ------- END OF REPORT Surjit Andrew CN LAB CYTOLOGY ORDERABLES F inal Result Performing Organization Address [facility] Co de Phone Number [facility] [address] [place] [phone] * Hepatitis C Viral RNA, Quantitative, Real-Time PCR (01/03/2024 8:16 AM EDT) Pathologist [facility] Hepatitis C Viral Load <15 NOT DETECTED NOT DETECTED IU/mL [facility] HCV Log PCR <1.18 NOT DETECTED NOT DETECTED Log IU/mL [facility] Comment:For additional infor julian, please refer tohttp://education.[employer]/faq/CXH90n8(This link is being provided for informational/educational purposes only.)THIS TEST WAS PERFORMED AT:[facility] [place] [phone] CALLAWAY MD Blood 01/03/2024 8:16 AM EDT 01/03/2024 11:32 AM EDT Chery Chadwickrancho SALES CORRESPONDENT LAB BLOOD ORDERABLES Final Res ult Performing Organization Address [facility] de Phone Number [facility] [address] [place] [phone] * HIV-1/2 Antigen and Antibodies, Fourth Generation, with Reflexes (01/03/2024 8:16 AM EDT) HIV AB/AG Nonreactive Nonreactive [facility] Comment:HIV-1 p24 Ag and/or HIV-1/HIV-2 Ab not detected.A test result that is nonreactive does not exclude thepossibility of exposure to or infection with HIV-1 and/orHIV-2. Nonreactive results in this assay for individualswith prior exposure to HIV-1 and/or HIV-2 may be due toantigen and antibody levels that are below the limit ofdetection of this assay.The [employer] HIV Ag/Ab Combo assay result andsupplemental assay results should be interpreted inconjunction with the patient's clinical presentation,history and other laboratory results. If the results areinconsistent with clinical evidence, additional testing issuggested to confirm the result. Blood Venous blood specimen / Unknown 01/03/2024 8:16 AM EDT 01/03/2024 11:32 AM EDT us Chery Nicole [facility] LAB BLOOD ORDERABLES Final Res ult [facility] [address] [place] [phone] from Last 3 Months or Most Recently Relevant to Health Maintenance [place] [address] [place] [address] C3 Care Teams [employer] Relationship Specialty Start Date End Date Chery Nicole FNP [address] [place] [address] PCP - General Family Medicine 01/07/22
--- OUTSIDE RECORDS SUMMARY | 2025-01-10 08:45 | XMS_ITS | Encounter Summary ---
Author Organization [employer] Address [address] [place] [address] Care Team Providers Care Golf Ball Cover Treater Name Role Phone Chery Nicole Primary Care Provider [phone] Reason for Visit * Reason Onset Date Comments Letter for School/Work 07/01/2022 Encounter Details Date Type Department Care Team (Late st Contact Info) Description 07/01/2022 Telephone [facility] [address] [place] [address] Chery Nicole FNP [address] [place] [address] Letter for School/Work Social History Tobacco Use [...] Please update letter. Please contact pt at [phone] documented in this encounter Plan of Treatment Upcoming Encounters Date Type Department Care Team (Late st Contact Info) Description 02/05/2025 11:15 AM EDT Office Visit [facility] [address] [place] [address] Chery Nicole FNP [address] [place] [address] documented as of this encounter Visit Diagnoses Not on filedocumented in this encounter Care Teams Golf Ball Cover Treater Relationship Specialty Start Date End Date Chery Nicole FNP [address] [place] [phone] PCP - General Family Medicine 01/07/22 documented as of this encounter
[2025-01-10 08:46] VITALS: BMI 60.0
--- NOTE | 2025-01-10 08:46 | A.OFFVIS_ITS ---
Vital Signs 01/10/25 08:46 Height 5 ft 7 in Weight 383 lb BMI 60.0 Intake Visit Reasons: PO RT cubital/CTR 12/28/24 AR Intake Note: Kitty is a 34 year old right hand dominant female who presents today for her first post-operative visit after undergoing a Right Cubital & Carpal Tunnel release, DOS: 12/28/[address] Tran. Patient reports today she continues to feel numbness on the posterior aspect of her right elbow. Denies numbness and tingling on the right hand. Denies finger locking. She has discontinued the [place]. Sutures were removed and steri strips applied. Allergies Penicillins Adverse Reaction (Intermediate, Verified 01/10/25 09:06) Swelling/hives HPI HPI PO RT cubital/CTR 12/28/24 AR: Details: Kitty is a 34 year old right hand dominant female who presents today for her first post-operative visit after undergoing a Right Cubital & Carpal Tunnel release, DOS: 12/28/[address] Tran. Patient reports today she continues to feel numbness on the posterior aspect of her right elbow. Denies numbness and tingling on the right hand. Denies finger locking. She has discontinued the [place]. Sutures were removed and steri strips applied. [facility] Medical History Class 3 severe obesity due to excess calories with body mass index (BMI) of 50.0 to 59.9 in adult Microcytic anemia Chronic low back pain CARMELO (generalized anxiety disorder) Type 2 diabetes mellitus HTN (hypertension) Surgical History Hx of wisdom tooth extraction Hx of tubal ligation Hx of cholecystectomy Social History Are you a primary medicare compliance auditor to a significant other at home: No Do you presently have visiting nurse or other home services: No Alcohol intake: never Comment: counts correct Patient Tobacco Use Status: Never used Tobacco Current occupational status: employed 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 Good APB muscle firing and good finger cross. Vascular: Capillary refill brisk. ROM: Patient can make a fist and extend all their digits. Skin: Well approximated and well healing incision sites noted on the medial aspect of the right elbow and the volar right wrist No lacerations or abrasions noted. General: No ecchymosis. No erythema or evidence of infection. Assessment & Plan Assessment & Plan (1) Cubital tunnel syndrome on right: Code(s): G56.21 - Lesion of ulnar nerve, right upper limb Category: Medical (2) Right carpal tunnel syndrome: Code(s): G56.01 - Carpal tunnel syndrome, right upper limb Category: Medical Plan 1. Status post Right cubital tunnel release 2. Status post right carpal tunnel release DOS 12/28/2024 With good symptom resolution postoperatively Patient appears to be recovering well postoperatively Patient is educated about the typical recovery course Sutures removed, Steri-Strips applied without issue No under water or dirty activities times one-week 2 lb weight limit x2 weeks Patient understands this and is amenable to this plan Follow-up as needed Coding Level of Care Code Global (93985) Diagnoses Cubital tunnel syndrome on right G56.21 Right carpal tunnel syndrome G56.01
== END 2025-01-10 09:30 | disposition home or self-care (01) ==
LOC: HO.HOS 08:24
PROVIDERS: PCP Registered Nurse
DX: G56.21 Lesion of ulnar nerve, right upper limb (principal); G56.01 Carpal tunnel syndrome, right upper limb
CPT/HCPCS: 99024

== ENCOUNTER → 2025-01-10 08:24 | Outpatient (BNVA) | payer MEDICAID, SELFPAY | PROVIDERS: PCP Registered Nurse | DX: Z98.890 Other specified postprocedural states (principal); G56.21 Lesion of ulnar nerve, right upper limb; G56.01 Carpal tunnel syndrome, right upper limb | CPT/HCPCS: 99212 ==

== ENCOUNTER 2025-01-12 07:48 | Outpatient (REF) | payer MEDICAID, SELFPAY ==
--- OUTSIDE RECORDS SUMMARY | 2025-01-08 15:15 | XMS_ITS | Encounter Summary ---
Author Organization [employer] Address [address] [place] [address] 7 [place] [address] Care Team Providers Care Manager Of Investigations Name Role Phone ChadwickranchoKinle ROBIN Primary Care Provider [phone] Encounter Details Date Type Department Care Team (Latest Contact Info) Description 01/08/2025 3:15 PM EDT Office Visit [facility] OPTOMETRY [address] [place], [place] [phone] Gina Stringer, OD [address] [place] [address] Type 2 diabetes 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 ophthalmic manifestations [...] with others, in a hotel, in a fpc, living outside on the street, on a [...] the past 12 months, has t he [email or web address], gas, oil or water [employer] threatened to shut off services in your [...] Psychiatric, Allergic/Imm, Heme/Lymph Last edited by Gina Strigner OD on 01/08/2025 3:01 PM. Base Eye [...] Exam Right Left Vitreous Clear Clear Disc [place] and healthy, (-) NVD [place] and healthy, (-) NVD C/D Ratio Vertical [...] needed Gina Stringer, OD 01/08/2025, 4:18 PM Brick Chimney Builder Source: __ None __ Bilingual Staff __ Qualified Staff Film Coater __ Telephone Brick Chimney Builder; ID# _x_ Brick Chimney Builder brought by patient (family member, friend, PROJ MGR, etc) __ In person cloth pattern maker __ Ipad Brick Chimney Builder; ID#: Language Spoken During Exam: Central African [1] Current Outpatient Medications Medication Sig Dispense Refill albuterol (Ventolin HFA) 108 (90 Base) MCG/ACT inhaler INHALE 2 PUFFS EVERY 4 HOURS NEEDED FOR WHEEZING AND SHORTNESS OF BREATH 18 g 11 Alcohol Swabs (Alcohol Prep) 70 % pads TEST BLOOD SUGAR TWICE DAILY Blood Glucose Monitoring Suppl (Explore.To Yellow Pages[employer] Bay [employer] [place] Lite) w/Device kit TEST BLOOD SUGAR TWICE DAILY 1kit 0 Blood Pressure kit 1 each [address] [facility] if BP readings are > 140/80 [...] Upcoming Encounters Date Type Department Care Team ([facility] st Contact Info) Description 02/05/2025 11:15 AM EDT Office Visit [facility] MED & PEDS [address] [place], [place] [phone] Chery Nicole FNP [address] [place] [address] documented as of this encounter Visit Diagnoses Diagnosis Type 2 diabetes 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 ophthalmic manifestations (CMS/HCC)- Primary Hypermetropia, bilateral documented in this encounter Additional Health Concerns Assessment Noted Time PHQ-9 Depression Total Score: 11 024 10:16 AM EDT documented as of this encounter Care Teams Manager Of Investigations Relationship Specialty Start Date End Date Chery Nicole FNP [address] [place] [address] PCP - General Family Medicine 01/07/22 documented as of this encounter
--- NOTE | 2025-01-12 | PFT_ITS ---
Flows: FEV1: 84 % of predicted at 2.87 L FVC: 84 % of predicted at 3.47 L FEV1/FVC: 83 % Bronchodilator response: Absent Volumes: Total lung capacity: 78 % of predicted at 4.50 L Residual volume: 74 % of predicted at 1.02 L Slow vital capacity: 79 % of predicted at 3.48 L Expiratory reserve volume: 21 % of predicted at 0.30 L Diffusion capacity: Normal Impression: Mild restrictive ventilatory defect with no bronchodilator response. Decreased expiratory reserve volume suggests extrathoracic restriction likely secondary to abdominal obesity. MTDD
--- OUTSIDE RECORDS SUMMARY | 2025-01-12 07:51 | XMS_ITS | Encounter Summary ---
Author Organization [employer] Address [address] [place] [id number] Care Team Providers Care Out Of Town Collection Clerk Name Role Phone Chery Nicole Primary Care Provider [phone] Reason for Visit * Reason Onset Date Comments Letter for School/Work 05/14/2022 Encounter Details Date Type Department Care Team ([facility] st Contact Info) Description 05/14/2022 Telephone [facility] MEDICINE [address] [place] [address] Chery Nicole FNP [address] [place] [address] Letter for School/Work Social History Tobacco Use [...] her with anxiety Please contact pt at [phone] documented in this encounter Plan of Treatment Upcoming Encounters Date Type Department Care Team (Late st Contact Info) Description 02/05/2025 11:15 AM EDT Office Visit [facility] MED & PEDS [address] [place] [address] Chery Nicole FNP [address] [place] [address] documented as of this encounter Visit Diagnoses Not on filedocumented in this encounter Care Teams Out Of Town Collection Clerk Relationship Specialty Start Date End Date Chery Nicole FNP [address] [place] [address] PCP - General Family Medicine 01/07/22 documented as of this encounter
--- OUTSIDE RECORDS SUMMARY | 2025-01-12 07:51 | XMS_ITS | Encounter Summary ---
Author Organization [employer] Address [address] [place] [id number] Care Team Providers Care Stock Feeder Name Role Phone Chery Nicole Primary Care Provider [phone] Encounter Details Date Type Department Care Team (Late Contact Info) Description 07/15/2022 Orders Only [facility] MED & PEDS [address] [place] [address] Kitty Manzano LPN Social History Tobacco Use [...] Description 02/05/2025 11:15 AM EDT Office Visit [facility] MED & PEDS [address] [place] [address] Chery Nicole FNP [address] [place] [address] documented as of this encounter Visit Diagnoses Not on filedocumented in this encounter Care Teams Stock Feeder Relationship Specialty Start Date End Date Chery Nicole FNP [address] [place] [address] PCP - General Family Medicine 01/07/22 documented as of this encounter
--- OUTSIDE RECORDS SUMMARY | 2025-01-12 07:51 | XMS_ITS | Clinical Summary ---
Author Organization [employer] Address [address] [place] [address] 7 [place] [address] Care Team Providers Care Intelligence Operations Name Role Phone ChadwickChery vickers ROBIN Primary Care Provider [phone] Allergies Active Allergy Reactions Criticality Noted Date [...] 23 Active Blood Glucose Monitoring Suppl (FreeStyle Copen Lite) w/Device kitIndications:Ty pe 2 diabetes 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 complication, without long-term current use of insulin ([facility]) TEST BLOOD SUGAR TWICE DAILY 1 kit 11/26/19 24 Active FREESTYLE LITE test stripIndications: 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, without long-term current use of insulin ([facility]) Use to check blood sugar twice daily [...] each 2 times daily. Call [facility] if BP readings are > [...] (12/18/2024 1:57 PM EDT): - Consult with [facility] Ortho, plan to proceed with surgery Assessment & Plan (11/24/2024 1:12 PM EDT): - Consult with [facility] Ortho, plan to proceed with surgery Bilateral carpal tunnel syndrome 08/21/2024 Overview (11/24/2024): 09/19/24: NCS/EMG demonstrated mild-moderate bilat carpal tunnel syndrome and mild right cubital tunnel syndrome. Assessment & Plan (12/18/2024 1:57 PM EDT): Consult with [facility] Ortho, plan to proceed with carpal tunnel release. Right side first. Assessment & Plan (11/24/2024 1:12 PM EDT): Consult with [facility] Ortho, plan to proceed with carpal tunnel release. Right side first. Assessment & Plan (08/21/2024 3:14 PM EDT): Order for bilateral EMG placed 08/21/24 Microcytic anemia 03/19/2024 Assessment & Plan (11/24/2024 1:10 PM EDT): -Microcytic anemia w/ low iron and Vit D. 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 -Initiated PO iron and Vit D supplementation [...] physical activity interventions 01/03/24: Wegovy was approved PA#[id number]. Exp: 07/05/24. 0.25mg dose started Jan 2024. Reviewed med safety and SE Assessment & Plan (03/19/2024 4:01 PM EST): Encouraged to continue with nutrition and physical activity interventions 01/03/24: Wegovy was approved PA#[id number]. Exp: 07/05/24. 0.25mg dose started Jan 2024. Reviewed med safety and SE Assessment & Plan (02/24/2024 3:29 PM EDT): Encouraged to continue with nutrition and physical activity interventions 01/03/24: Wegovy was approved PA#[id number]. Exp: 07/05/24. Plan to start 0.25mg subcutaneous [...] schedule Last PE: 02/04/24 OPH: LEANN at [facility] Eye Care in Dec 2022. [...] on 01/03/24 Eye exam: Dec 2022 at [facility] Eye Care Dental: due PNA [...] due Eye exam: appt November 2022 at [facility] Eye Care Dental: due PNA [...] pending Eye exam: appt November 2022 at [facility] Eye Care Dental: due PNA [...] 07/18/21 Eye exam: appt November 2022 at [facility] Eye Care Dental: due PNA [...] the following plan: provided contact info for [facility]-[phone], for OP and family therapy -No active [...] 3:15 PM EDT Office Visit [facility] OPTOMETRY [address] [place] [address] Gina Stringer, ETHAN Type 2 diabetes 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 ophthalmic manifestations (CMS/HCC) (Primary Dx); Hypermetropia, bilateral 01/08/2025 Travel 12/28/2024 Orders Only GENERIC EXTERNAL DATA DEPARTMENT Provider, Generic External Data 12/18/2024 9:30 AM EDT Office Visit [facility] CHC MED & PEDS [address] [place] [address] Chery Nicole, ROBIN Cubital tunnel syndrome on right (Primary Dx); Bilateral carpal tunnel syndrome; Pre-op evaluation; 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, without long-term current use of insulin (CMS/HCC); Essential hypertension 12/18/2024 Travel 12/13/2024 Orders Only GENERIC EXTERNAL DATA DEPARTMENT Provider, Generic External Data 11/28/2024 Orders Only [facility] MEDICINE [address], [place] [phone] Surjit Dawn CNM Menorrhagia with regular cycle (Primary Dx) 11/28/2024 Orders Only [address] [address] Surjit Dawn CNM Menorrhagia with regular cycle (Primary Dx); Screening examination for venereal disease 11/28/2024 Results Follow-Up [address] [address] Surjit Dawn CNM Partial Thromboplastin Time, Activated (APTT), Prothrombin Time-INR, von Willebrand Factor Antigen, Factor 8 activity 11/24/2024 8:45 AM EDT Office Visit [facility] MED & PEDS [address] [place] [address] Chery Nicole FNP Class 3 severe obesity with body mass index (BMI) of 50.0 to 59.9 in adult (Primary Dx); 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, without long-term current use of insulin ([facility]); Microcytic anemia; Cubital tunnel syndrome on right; Bilateral carpal tunnel syndrome 11/24/2024 Travel 11/24/2024 Telephone [facility] MED & PEDS [address] [place] [address] Chery Nicole FNP chart prep 11/19/[address] [address] Chery Nicole FNP Other depression 11/13/[address] [address] Surjit Dawn CNM Reminder to get labs done. 11/13/[address] [address] Surjit Dawn CNM Lab Results 10/30/2024 10:00 AM EDT Office Visit [facility] WALK-IN CENTER [address] [place] [phone] Lisbeth Ness MD Subacute maxillary sinusitis (Primary Dx); Acute bronchospasm due to viral infection; Cough in adult patient 10/26/2024 Orders Only [address] [address] Surjit Dawn, PREM Menorrhagia with regular cycle (Primary Dx) from Last 3 Months Immunizations Immunization Administration [...] Description 02/05/2025 11:15 AM EDT Office Visit [facility] MED & PEDS [address] [place] [address] Chery Niocle, ROBIN [address] [place] [address] Health Maintenance Due Date Last Done Comments [...] Screening 11/24/2025 11/24/2024 Lipid Panel 11/24/2025 11/24/2024, 12/15, 04/26/2023, Additional history exists Diabetes: Urine Protein [...] complication, without long-term current use of insulin ([facility]) HEMOGLOBIN A1C Routine 12/18/2024 9:47 AM EDT Pre-op evaluation CBC WITH AUTO DIFFERENTIAL Routine 12/18/2024 9:47 AM EDT Pre-op evaluation BASIC METABOLIC PANEL Routine 12/13/2024 1:50 PM EDT LIPID PANEL, STANDARD Routine 11/24/2024 9:52 AM EDT 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, without long-term current use of insulin ([facility]) VITAMIN D,25-OH,TOTAL,IA Routine 11/24/2024 9:52 AM EDT Microcytic anemia FERRITIN Routine 11/24/2024 9:52 AM EDT Microcytic anemia IRON AND TOTAL IRON BINDING CAPACITY Routine 11/24/2024 9:52 AM EDT Microcytic anemia CBC WITH AUTO DIFFERENTIAL Routine 11/24/2024 9:52 AM EDT Microcytic anemia POCT GLYCATED HEMOGLOBIN, TOTAL Routine 11/24/2024 9:04 AM EDT 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, without long-term current use of insulin ([facility]) POCT GLUCOSE Routine 11/24/2024 9:03 AM EDT 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, without long-term current use of insulin ([facility]) FACTOR 8 ACTIVITY Routine 11/21/2024 9:1 1 [...] Whole Blood 144(H) 60 - 115 mg/dL [facility] Comment:METER #: [id number] 12/28/2024 7:33 AM EDT 12/28/2024 7:37 AM EDT us Generic External Data Provider LAB BLOOD ORDERAB LES Final Result [facility] [address] [place] [phone] * ECG 12 lead (12/18/2024 2:08 PM EDT) Narrative Chery Nicole FNP - 12/18/2024 2:08 PM EDT P/Pr: 120/152 ms QRS: 94 ms QT/Qtc: 410/436 ms HR: 68 bpm NSR without T-wave or ST changes us Chery KELLY ECG ORDERABLES Final Result * Chlamydia/N. Gonorrhoeae, PCR, Urine (12/18/2024 9:50 AM EDT) Pathologist [facility] CT PCR, Urine NOT DETECTED Not Detect. [facility] Comment:A not detected test result does [...] NG PCR, Urine NOT DETECTED Not Detect. [facility] Comment:A not detected test result does [...] AM EDT 12/18/2024 1:50 PM EDT us Surjit SHEIKH LAB URINE ORDERABLES Yokasta l Result Performing Organization Address City/[facility]/ZIP Co de Phone Number [facility] [address] [place], [place] [phone] * (ABNORMAL) Albumin, Random Urine W/Creatinine (12/18/2024 9:50 AM EDT) Creatinine, Urine 117.78 mg/dL [facility] Microalbumin Urine 99.0 mg/L [facility] Microalbum Creatinine Ratio Ur 84.0(H) <30 ug/mg cr [facility] Comment:Albumin/Creatinine R atio Reference Ranges: Normal: < 30 ug/mg creatinine Microalbuminuria: 30 - 300 ug/mg creatinineClinical Albuminuria: > 300 ug/mg creatinine Urine 12/18/2024 9:50 AM EDT 12/18/2024 1:50 PM EDT us Chery Nicole [employer] LAB URINE ORDERABLES Final Res ult [facility] [address] [place] [address] [phone] * (ABNORMAL) CBC auto differential (12/18/2024 9:47 AM EDT) Only the most recent of2 resultswithin the time period is included. White Blood Count 6.3 4.8 - 10.8 X10*3/uL [facility] Red Blood Count 4.95 4.20 - 5.50 X10*6/uL [facility] Hemoglobin 11.0(L) 12.0 - 16.0 g/dl [facility] Hematocrit 36.1(L) 37.0 - 47.0 % [facility] Mean Corpuscular Volume 72.9(L) 80.0 - 98.0 fL [facility] Mean Corpuscular Hemoglobin 22.2(L) 27.0 - 33.0 pg [facility] Mean Corpuscular HGB Conc 30.5(L) 31.0 - 35.0 g/dl [facility] Red Cell Distribution Width 19.1(H) 11.0 - 16.0 % [facility] Platelet Count 185 160 - 400 X10*3/uL [facility] Neutrophils Percent Auto 65.8 45 - 73 % [facility] Imm Gran Pct Auto 0.5(H) 0.0 - 0.4 % [facility] Lymphocytes Percent Auto 25.6 20 - 40 % [facility] Monocytes Percent Auto 7.0 2 - 11 % [facility] Eosinophils Percent Auto 0.8 0 - 4 % [facility] Basophils Percent Auto 0.3 0 - 2 % [facility] NRBC Pct Auto 0.0 0.0 - 0.2 /100WBC [facility] Neutrophils Absolute Auto 4.2 2.0 - 8.3 x10*3/uL [facility] Imm Gran Abs Auto 0.03 0.00 - 0.03 X10*3/uL [facility] Lymphocytes Absolute Auto 1.6 1.2 - 4.9 X10*3/uL [facility] Monocytes Absolute Auto 0.4 0.1 - 1.2 X10*3/uL [facility] Eosinophils Absolute Auto 0.1 0.0 - 0.4 X10*3/uL [facility] Basophils Absolute Auto 0.0 0.0 - 0.2 X10*3/uL [facility] NRBC Abs Auto 0.000 0.0 - 0.012 X10*3/uL [facility] Blood Venous blood specimen / Unknown 12/18/2024 9:47 AM EDT 12/18/2024 1:54 PM EDT Chery Nicole [employer] LAB BLOOD ORDERABLES Final Res ult Performing Organization Address [facility] Co de Phone Number [facility] [address] [place] [phone] * (ABNORMAL) Hemoglobin A1c (12/18/2024 9:47 AM EDT) Hemoglobin A1c 6.9(H) <6.0 % [facility] Comment:Hemoglobin A1C Refer ence Range Adults: 4.8 - 6.0 % Non diabetic: < 6.0 % Goal: < 7.0 %Additional Action Suggested: > 8.0 %Note: Hemoglobin A1c results are invalid for patients with abnormal amounts of HbF. Blood transfusions may impact the HbA1c concentration in the patient sample. Estimated Average Glucose 151 mg/dL [facility] Comment:eAG = Estimated ave rage glucose which is %A1C expressed asaverage glucose, using the formula of the [id number]-FnkbzjfDvfbgns Glucose study (ADAG), Diabetes Care, Vol.31,#8,Dec. 2007 Blood Venous blood specimen / Unknown 12/18/2024 9:47 AM EDT 12/18/2024 1:54 PM EDT Chery Nicole [employer] LAB BLOOD ORDERABLES Final Res ult Performing Organization Address [facility]/ZIP Co de Phone Number [facility] [address] [place] [phone] * (ABNORMAL) Basic Metabolic Panel (12/13/2024 1:50 PM EDT) Sodium 137 135 - 145 mmol/L [facility] Potassium 4.1 3.3 - 5.1 mmol/L [facility] Comment:Slight Hemolysis.Int erpret result with caution. Chloride 107 96 - 108 mmol/L [facility] Carbon Dioxide 22 22 - 29 mmol/L [facility] Anion Gap 12 12 - 20 [facility] Urea Nitrogen (BUN) 7(L) 9 - 16 mg/dL [facility] Creatinine, Serum 0.52 0.5 - 1.4 mg/dL [facility] Creatinine Clr Calc Pharmacy 228.6 [facility] Comment:Provided height and weight: 170.18 cm,149.685 kg.eGFR (calculated from the MDRD study equation) and eCrCl(calculated from the Cockcroft-Gault equation) are based ondifferent parameters and may not yield comparable results.If eCrCl result is absurd, please check patient'sheight/weight. Estimated Glomerular Filt Rate >60 [facility] Comment:Chronic Kidney Disea se: Estimated GFR < 60 mL/min/1.87z3Uynlbw Kidney Disease: Estimated GFR < 15 mL/min/1.73m2 Glucose 89 60 - 115 mg/dL [facility] Calcium 8.9 8.4 - 10.2 mg/dL [facility] 12/13/2024 1:50 PM EDT 12/13/2024 1:50 PM EDT us Generic External Data Provider LAB BLOOD ORDERAB LES Final Result [facility] [address], [place] [phone] * (ABNORMAL) Vitamin D, 25-Hydroxy, Total, Immunoassay (11/24/2024 9:52 AM EDT) Vitamin D 25-OH Total 24.6(L) >30 ng/mL [facility] Comment: Health Based Reference Values*< 20 ng/mL Edwqsqzgj17-49 ng/mL Insufficient> 30 ng/mL Sufficient*Patti PHILIP. N [...] 11/24/2024 2:41 PM EDT us Chery Nicole [facility] LAB BLOOD ORDERABLES Final Res ult [facility] [address] [place] [phone] * (ABNORMAL) Iron And Total Iron Binding Capacity (11/24/2024 9:52 AM EDT) Iron 29(L) 30 - 160 mcg/dL [facility] Total Iron Binding Capacity 376 228 - 428 mcg/dL [facility] Percent Iron Saturation 8(L) 15 - 50 % [facility] Unsaturated Iron Binding 347 ug/dL [facility] Blood Venous blood specimen / Unknown 11/24/2024 9:52 AM EDT 11/24/2024 2:41 PM EDT us Chery Nicole [facility] [facility] LAB BLOOD ORDERABLES Final Res ult [facility] [address] [place] [address] [phone] * Ferritin (11/24/2024 9:52 AM EDT) Ferritin 32 10 - 122 ng/mL [facility] Blood Venous blood specimen / Unknown 11/24/2024 9:52 AM EDT 11/24/2024 2:41 PM EDT us Chery Nicole [employer] [facility] LAB BLOOD ORDERABLES Final Res ult Performing Organization Address City/[facility]/ZIP Co de Phone Number [facility] [address] [place] [phone] * (ABNORMAL) Lipid Panel, Standard (11/24/2024 9:52 AM EDT) Triglycerides 109 <150 mg/dL [facility] Comment:Desirable Triglyceri de: less than 150 mg/dLBorderline High Triglyceride 150-199 mg/dLHigh Triglyceride: 200-499 mg/dLVery High Triglyceride: greater than or equal to 5OO mg/dL Cholesterol 158 <200 mg/dL [facility] Comment:Desirable Cholestero l: less than 200 mg/dLBorderline High Cholesterol: 200-239 mg/dLHigh Cholesterol: greater than 239 mg/dL LDL Cholesterol Calculated 101(H) <100 mg/dL [facility] Comment:Desirable LDL: less than 100 mg/dLNear Optimal/Above Optimal LDL: 110- 129 mg/dLBorderline High LDL: 130-159 mg/dLHigh LDL: 160-189 mg/dLVery High LDL: greater than or equal to 190 mg/dL HDL Cholesterol 36(L) >40 mg/dL [facility] Comment:Desirable HDL: great er than 40 mg/dL Note: This HDL assay may give artificially low results in patients with liver disease. Blood Venous blood specimen / Unknown 11/24/2024 9:52 AM EDT 11/24/2024 2:41 PM EDT Chery Nicole [facility] [facility] LAB BLOOD ORDERABLES Final Res ult [facility] [address] [place] [address] [phone] * (ABNORMAL) POCT A1C (11/24/2024 9:04 AM EDT) Hemoglobin A1C 6.7(A) 4.0 - 5.7 % QC Media Lot # Comment:[id number] Lot# Expiration Date Comment:05/18/2026 Blood 11/24/2024 9:04 AM EDT Chery Nicole [employer] POINT OF CARE TEST ENTER/EDIT ORDERABLES Final Result * POCT glucose manually resulted (11/24/2024 9:03 AM EDT) Glucose Blood, POC 134 60 - 200 mg/dL QC Media Lot # Comment:[id number] Lot# Expiration Date Comment:03/15/2025 Blood Capillary blood specimen / Unknown 11/24/2024 9:03 AM EDT Chery Nicole [employer] POINT OF CARE TEST ENTER/EDIT ORDERABLES Final Result * von Willebrand Factor Antigen (11/21/2024 9:11 AM EDT) Von Willebrand Factor Antigen 156 50 - 217 % [facility] Comment:THIS TEST WAS PERFOR MED AT:[id number] [place] [id number] NORIEGA MD,PHD 11/21/2024 9:11 AM EDT 11/21/2024 12:14 PM EDT Surjit Dawn CN LAB BLOOD ORDERABLES Yokasta l Result [facility] [address] [place] [phone] [phone] * Partial Thromboplastin Time, Activated (APTT) (11/21/2024 9:11 AM EDT) Partial Thromboplastin Time 30.8 26.0 - 36.8 SEC [facility] Comment:For information rega rding the monitoring of direct thrombininhibitors, please refer to Pharmacy. Blood Venous blood specimen / Unknown 11/21/2024 9:11 AM EDT 11/21/2024 12:14 PM EDT Surjit Dawn [facility] LAB BLOOD ORDERABLES Yokasta l Result Performing Organization Address [facility]/ZIP Co de Phone Number [facility] [address] [place] [phone] * Prothrombin Time-INR (11/21/2024 9:11 AM EDT) Prothrombin Time 11.0 10.9 - 12.4 SEC [facility] INTERNATIONAL NORM RATIO 1.0 0.9 - 1.1 [facility] Comment:INTERNATIONAL NORMAL IZED RATIO (INR) REFERENCE [...] 9:11 AM EDT 11/21/2024 12:14 PM EDT Surjit Dawn [facility] LAB BLOOD ORDERABLES Yokasta l Result Performing Organization Address [facility]/ZIP Co de Phone Number [facility] [address] [place] [phone] * Factor 8 activity (11/21/2024 9:11 AM EDT) Pathologist [facility] Factor VIII Activity, Clotting 152 50 - 180 % normal [facility] Comment:For additional infor mation please refer to:http://education.[employer]/faq/ASW179(This link is being provided for informational/educational purposes only.)THIS TEST WAS PERFORMED AT:[id number] [place] [id number] NORIEGA MD,PHD Blood Venous blood specimen / Unknown 11/21/2024 9:11 AM EDT 11/21/2024 12:14 PM EDT Surjit Dawn [facility] LAB BLOOD ORDERABLES Yokasta l Result Performing Organization Address [facility]/ZIP Co de Phone Number [facility] [address] [place] [phone] * Influenza B (ID NOW Rapid Molecular) (10/30/2024 9:28 AM EDT) Pathologist [facility] Influenza B Negative Negative, Indeterminate [facility] Swab 10/30/2024 9:28 AM EDT Lisbeth Ness MD POINT OF CARE TEST ENTER /EDIT ORDERABLES Final Result Performing Organization Address City/[facility]/ZIP Co de Phone Number [facility] [address] [place] [phone] * Influenza A (ID NOW Rapid Molecular) (10/30/2024 9:28 AM EDT) Pathologist [facility] Influenza A Negative Negative, Indeterminate [facility] Swab 10/30/2024 9:28 AM EDT Lisbeth Ness MD POINT OF CARE TEST ENTER /EDIT ORDERABLES Final Result Performing Organization Address [facility]/ZIP Co de Phone Number [facility] [address] [place] [phone] [phone] * POCT Rapid COVID Ag (10/30/2024 9:20 AM EDT) Rapid COVID Ag Negative Swab 10/30/2024 9:20 AM EDT us Lisbeth Ness MD POINT OF CARE TEST ENTER /EDIT ORDERABLES Final Result * Us Pelvis complete (10/25/2024 2:58 PM EDT) Anatomical Region Laterality Modality Pelvis Ultrasound 10/25/2024 2:58 PM EDT Narrative 10/25/2024 2:59 PM EDT [facility] Primary [facility] [place] [place] [address] Ultrasound Report Signed Patient: Kitty Marley MR#: [id number] : 1990 Acct:[id number] Age/Sex: 34 / F ADM Date: 10/25/24 Loc: HO.HMGCX Attending Dr: Surjit Dawn CNM Ordering Physician: SURJIT DAWN CNM Date of Service: 10/25/24 Procedure(s): US pelvic complete Accession Number(s): [id number] cc: Chery NicoleP; SURJIT DAWN CNM CLINICAL HISTORY: menorrhagia US [...] in OV> 10/25/241457 DD/ 57 TD/TT: 10/25/241457 Demurrage Clerk: Procedure Note Donotuseinterpreter, Image - 10/25/2024 [facility] [place] [address] Ultrasound Report Signed Patient: Kitty Marley#: M [id number] : 1990Acct:[id number] Age/Sex: 34 / FADM Date: 10/25/24 Loc: HO.HMGCX Attending Dr: Surjit Dawn CNM Ordering Physician: SURJIT DAWN CNM Date of Service: 10/25/24 Procedure(s): US pelvic complete Accession Number(s): [id number] cc: Chery NicoleP; SURJIT DAWN CNM CLINICAL HISTORY: menorrhagia US [...] in OV> 10/25/241457 DD/ 57 TD/TT: 10/25/241457 Demurrage Clerk: Surjit Dawn CNM IMG US PROCEDURES Final R esult * (ABNORMAL) HPV DNA, Low/High Risk (09/28/2024 9:21 AM EDT) HPV High Risk Positive(A) Negative [facility] HPV Genotype 16 Negative Negative [facility] HPV Genotype 18 Negative Negative [facility] Comment:HPV testing performe d at [facility] (CLIA#[id number]), [address] [place] [phone].Testing for HPV was performed using the Rohit [...] EDT 09/29/2024 9:40 AM EDT us Surjit Dawn [facility] LAB BLOOD ORDERABLES Yokasta l Result [facility] [address] [place] [phone] * Pap Smear (09/28/2024 9:21 AM EDT) Swab Cervix uteri structure / Unknown 09/28/2024 9:21 AM EDT 09/29/2024 9:40 AM EDT Narrative [facility] - 10/04/2024 10:33 AM EDT ----- ------- Name: Kitty Marley Age/Sex: 34/F : 1990 Unit#: [id number] Attend Dr: SURJIT DAWN Re09/28/24 Status: DEP REF Location: HHCLNP Disch: ----- ------- SPEC : [id number] RECD: 09/29/24 STATUS: TUAN LUIShlomo NUM: [id number] KACY: 09/28/24 [facility] DR: SURJIT DAWN ENTERED: 09/29/24-1057 SP TYPE: Pap Smr OTHR DR: ORDERED: Pap Smear Interpretation Satisfactory for evaluation. Negative for intraepithelial lesion or malignancy. No endocervical cells seen. HPV High Risk: Positive HPV Genotyping 16: Negative HPV Genotyping 18: Negative Clinical Information LMP: Unknown date Previous PAP test: Unknown date/findings Material Received ThinPrep-Cervical ----- ------- Signed (signature on file) NADINE Cha ([facility]) 10/04/24 1033 ----- ------- END OF REPORT Surjit Dawn CNM LAB CYTOLOGY ORDERABLES F inal Result Performing Organization Address [facility]/ZIP Co de Phone Number [facility] [address] [place] [phone] * Hepatitis C Viral RNA, Quantitative, Real-Time PCR (01/03/2024 8:16 AM EDT) [facility] Hepatitis C Viral Load <15 NOT DETECTED NOT DETECTED IU/mL [facility] HCV Log PCR <1.18 NOT DETECTED NOT DETECTED Log IU/mL [facility] Comment:For additional infor julian, please refer tohttp://education.[employer]/faq/XDN75s1(This link is being provided for informational/educational purposes only.)THIS TEST WAS PERFORMED AT:[employer] [place] [id number] CALLAWAY MD Blood 01/03/2024 8:16 AM EDT 01/03/2024 11:32 AM EDT Chery Nicole [facility] LAB BLOOD ORDERABLES Final Res ult Performing Organization Address [facility] Co de Phone Number [facility] [address] [place] [phone] * HIV-1/2 Antigen and Antibodies, Fourth Generation, with Reflexes (01/03/2024 8:16 AM EDT) [facility] HIV AB/AG Nonreactive Nonreactive [facility] Comment:HIV-1 p24 Ag and/or HIV-1/HIV-2 Ab not detected.A test result that is nonreactive does not exclude thepossibility of exposure to or infection with HIV-1 and/orHIV-2. Nonreactive results in this assay for individualswith prior exposure to HIV-1 and/or HIV-2 may be due toantigen and antibody levels that are below the limit ofdetection of this assay.[employer] HIV Ag/Ab Combo assay result andsupplemental assay results should be interpreted inconjunction with the patient's clinical presentation,history and other laboratory results. If the results areinconsistent with clinical evidence, additional testing issuggested to confirm the result. Blood Venous blood specimen / Unknown 01/03/2024 8:16 AM EDT 01/03/2024 11:32 AM EDT us Chery KELLY LAB BLOOD ORDERABLES Final Res ult [facility] [address] [place] [phone] [phone] from Last 3 Months or Most Recently Relevant to Health Maintenance [place] [address] [address] [place] [address] C3 Care Teams Intelligence Operations Relationship Specialty Start Date End Date Chery Nicole FNP [address] [place] [address] PCP - General Family Medicine 01/07/22
--- OUTSIDE RECORDS SUMMARY | 2025-01-12 07:51 | XMS_ITS | Encounter Summary ---
Author Organization [employer] Address [address] [place] [address] Care Team Providers Care Test Car Driver Name Role Phone Chery Nicole ROBIN Primary Care Provider [phone] Encounter Details Date Type Department Care Team [...] with others, in a hotel, in a halfway, living outside on the street, on a [...] Description 02/05/2025 11:15 AM EDT Office Visit [facility] MED & PEDS [address] [place] [address] Chery Nicole FNP [address] [place] [address] documented as of this encounter Visit Diagnoses Not on filedocumented in this encounter Additional Health Concerns Assessment Noted Time PHQ-9 Depression Total Score: 11 024 10:16 AM EDT documented as of this encounter Care Teams Test Car Driver Relationship Specialty Start Date End Date Chery Nicole FNP [address] [place] [address] PCP - General Family Medicine 01/07/22 documented as of this encounter
--- OUTSIDE RECORDS SUMMARY | 2025-01-12 07:51 | XMS_ITS | Encounter Summary ---
Author Organization [employer] Address [address] [place] [address] [address] [address] Care Team Providers Care Curing Press Operator Name Role Phone Chery Nicole Primary Care Provider [phone] Reason for Visit * Reason Comments Med Refill Encounter Details Date Type Department Care Team ([facility] Contact Info) Description 02/15/2024 Refill [facility] MED & PEDS [address] [place], [place] [phone] Chery Nicole FNP [address] [place] [address] Social History Tobacco Use Types Packs/Day Years [...] Description 02/05/2025 11:15 AM EDT Office Visit [facility] MED & PEDS [address] [place] [address] Chery Nicole FNP [address] [place] [address] documented as of this encounter Visit Diagnoses Not on filedocumented in this encounter Additional Health Concerns Assessment Noted Time PHQ-9 Depression Total Score: 11 024 10:16 AM EDT documented as of this encounter Care Teams Curing Press Operator Relationship Specialty Start Date End Date Chery Nicole FNP [address] [place] [address] PCP - General Family Medicine 01/07/22 documented as of this encounter
--- OUTSIDE RECORDS SUMMARY | 2025-01-12 07:51 | XMS_ITS | Encounter Summary ---
Author Organization [employer] Address [address] [place] [phone] Care Team Providers Care Top Lift Scourer Name Role Phone Chery Nicole Primary Care Provider [phone] Reason for Visit * Reason Onset Date Comments Letter for School/Work 07/01/2022 Encounter Details Date Type Department Care Team (Late st Contact Info) Description 07/01/2022 Telephone [facility] MEDICINE [address] [place] [address] Chery Nicole FNP [address] [place] [address] Letter for School/Work Social History Tobacco Use [...] Please update letter. Please contact pt at [phone] documented in this encounter Plan of Treatment Upcoming Encounters Date Type Department Care Team (Late st Contact Info) Description 02/05/2025 11:15 AM EDT Office Visit [facility] MED & PEDS [address] [place] [address] Chery Nicole FNP [address] [place] [address] documented as of this encounter Visit Diagnoses Not on filedocumented in this encounter Care Teams Top Lift Scourer Relationship Specialty Start Date End Date Chery Nicole FNP [address] [place] [address] PCP - General Family Medicine 01/07/22 documented as of this encounter
[2025-01-12 08:36] VITALS: PULSE 81; O2SAT 100
== END 2025-01-12 07:49 | disposition home or self-care (01) ==
LOC: HO.RESP 07:48
PROVIDERS: PCP Internal Medicine; Visit Provider Internal Medicine
DX: J98.01 Acute bronchospasm (principal); B34.9 Viral infection, unspecified
CPT/HCPCS: 94010; 94640; 94727; 94729

== ENCOUNTER → 2025-01-12 08:00 | Outpatient (BNV) | payer MEDICAID, SELFPAY | PROVIDERS: PCP Internal Medicine; Visit Provider Internal Medicine Pulmonary Disease | DX: R06.2 Wheezing (principal) | CPT/HCPCS: 94060; 94727; 94729 ==

== ENCOUNTER 2025-01-30 09:54 | Outpatient (AMB) | payer MEDICAID, SELFPAY ==
--- NOTE | 2025-01-30 10:06 | A.OFFVIS_ITS ---
Vital Signs 01/30/25 10:07 Height 5 ft 7 in Weight 383 lb BMI 60.0 Intake Visit Reasons: PO RT cubital/CTR 12/28/24 AR-work status Intake Note: Kitty is a 34 year old right hand dominant female who presents today for her first post-operative visit after undergoing a Right Cubital & Carpal Tunnel release, DOS: 12/28/[address] Tran. Patient is primarily here to review her current work status. 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 Patient complains of swelling and redness at her cubital incision. She also reports bumps around adjacent to her carpal incision. 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 Varnish Finisher Required: Yes Varnish Finisher Language: Volunteer Services Specialist Services: Varnish Finisher Present Varnish Finisher Name: Xavijamil RMA/TIP Allergies Penicillins Adverse Reaction (Intermediate, Verified 01/30/25 10:07) Swelling/hives HPI HPI PO RT cubital/CTR 12/28/24 AR-work status: Details: Kitty is a 34 year old right hand dominant female who presents today for her first post-operative visit after undergoing a Right Cubital & Carpal Tunnel release, DOS: 12/28/[address] Tran. Patient is primarily here to review her current work status. 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 Patient complains of swelling and redness at her cubital incision. She also reports bumps around adjacent to her carpal incision. 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 [facility] Medical History Class 3 severe obesity due to excess calories with body mass index (BMI) of 50.0 to 59.9 in adult Microcytic anemia Chronic low back pain CARMELO (generalized anxiety disorder) Type 2 diabetes mellitus HTN (hypertension) Surgical History Hx of wisdom tooth extraction Hx of tubal ligation Hx of cholecystectomy Social History Are you a primary care provider to a significant other at home: No Do you presently have visiting nurse or other home services: No Alcohol intake: never Comment: counts correct Patient Tobacco Use Status: Never used Tobacco Current occupational status: employed 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 Good APB muscle firing and good finger cross. Vascular: Capillary refill brisk. ROM: Patient can make a fist and extend all their digits. Skin: Well approximated and well healing incision sites noted on the medial aspect of the right elbow and the volar right wrist No lacerations or abrasions noted. General: Patient does have some tenderness to palpation about the incision site of the medial aspect of the right elbow No ecchymosis. No erythema or evidence of infection. Assessment & Plan Assessment & Plan (1) Cubital tunnel syndrome on right: Code(s): G56.21 - Lesion of ulnar nerve, right upper limb Category: Medical (2) Right carpal tunnel syndrome: Code(s): G56.01 - Carpal tunnel syndrome, right upper limb Category: Medical Plan 1. Status post Right cubital tunnel release 2. Status post right carpal tunnel release DOS 12/28/2024 With good symptom resolution postoperatively Patient appears to be recovering well postoperatively Patient is educated about the typical recovery course No signs or symptoms worrisome for potential surgical site infection At this time, patient is given light duty restrictions to return to work with a 2 lb weight limit in the right hand Patient is also educated that she should continue working on range of motion exercises of the right elbow and hand Patient will follow-up with me in 4-6 weeks for range of motion and pain check, anticipate return to work full duty at that time, sooner with any acute concerns Coding Level of Care Code Global (18367) Diagnoses Cubital tunnel syndrome on right G56.21 Right carpal tunnel syndrome G56.01
[2025-01-30 10:07] VITALS: BMI 60.0
--- OUTSIDE RECORDS SUMMARY | 2025-01-30 12:49 | XMS_ITS | Encounter Summary ---
Author Organization [employer] Address [address] [place] [address] Care Team Providers Care Group President Name Role Phone Chery Nicole Primary Care Provider [phone] Reason for Visit * Reason Onset Date Comments Letter for School/Work 07/01/2022 Encounter Details Date Type Department Care Team (Late st Contact Info) Description 07/01/2022 Telephone [facility] MED[facility] [address] [place] [address] Chery Nicole FNP [address] [place] [address] Letter for School/Work Social History Tobacco Use [...] Please update letter. Please contact pt at [phone] documented in this encounter Plan of Treatment Upcoming Encounters Date Type Department Care Team (Late st Contact Info) Description 02/05/2025 11:15 AM EDT Office Visit [facility] CHC MED & PEDS [address] [place] [address] Chery Nicole FNP [address] [place] [address] documented as of this encounter Visit Diagnoses Not on filedocumented in this encounter Care Teams Group President Relationship Specialty Start Date End Date Chery Nicole FNP [address] [place] [phone] PCP - General Family Medicine 01/07/22 documented as of this encounter
--- OUTSIDE RECORDS SUMMARY | 2025-01-30 12:49 | XMS_ITS | Encounter Summary ---
Author Organization [employer] Address [address] [place] [address] Care Team Providers Care Polysomnographic Tech Name Role Phone Chery Nicole Primary Care Provider [phone] Reason for Visit * Reason Onset Date Comments Letter for School/Work 05/14/2022 Encounter Details Date Type Department Care Team ([facility] st Contact Info) Description 05/14/[address] [facility] MEDICINE [address] [place] [address] Chery Nicole FNP [address] [place] [address] Letter for School/Work Social History Tobacco Use [...] her with anxiety Please contact pt at [phone] documented in this encounter Plan of Treatment Upcoming Encounters Date Type Department Care Team (Late st Contact Info) Description 02/05/2025 11:15 AM EDT Office Visit [facility] CHC MED & PEDS [address] [place] [address] Chery Nicole FNP [address] [place] [address] documented as of this encounter Visit Diagnoses Not on filedocumented in this encounter Care Teams Polysomnographic Tech Relationship Specialty Start Date End Date Chery Nicole FNP [address] [place] [address] PCP - General Family Medicine 01/07/22 documented as of this encounter
--- OUTSIDE RECORDS SUMMARY | 2025-01-30 12:49 | XMS_ITS | Encounter Summary ---
Author Organization [employer] Address [address] [place] [address] Care Team Providers Care Cigarette Machine Operator Name Role Phone Chery Nicole Primary Care Provider [phone] Encounter Details Date Type Department Care Team (Late Contact Info) Description 07/15/2022 Orders Only [facility] MED & PEDS [address] [place] [address] Kitty Manzano LPN Social History Tobacco Use [...] Description 02/05/2025 11:15 AM EDT Office Visit [facility] CHC MED & PEDS [address] [place] [address] Chery Nicole FNP [address] [place] [address] documented as of this encounter Visit Diagnoses Not on filedocumented in this encounter Care Teams Cigarette Machine Operator Relationship Specialty Start Date End Date Chery Nicole FNP [address] [place] [address] PCP - General Family Medicine 01/07/22 documented as of this encounter
--- OUTSIDE RECORDS SUMMARY | 2025-01-30 12:50 | XMS_ITS | Encounter Summary ---
Author Organization [employer] Address [address] [facility] [address] [place] [address] Care Team Providers Care Waste Management Recycling Technician Name Role Phone Chery Nicole Primary Care Provider [phone] Reason for Visit * Reason Comments Care Coordination CHW outreach for SDO H housing search-referral completed Encounter Details Date Type Department Care Team (Latest Contact Info) Description 01/30/2025 Patient Outreach [facility] MEDICINE [address] [place] [address] Chery Nicole FNP [address] [place] [address] Care Coordination (CHW outreach for SDOH housing search-referral completed ) Social History Tobacco Use Types Packs/Day Years [...] What is your housing situation today? I have [place] 01/29/[address] you li ve. Do you have problems with any of the following? None of the above 01/29/2025 Food Insecurity Answer Date Recorded Within the past 12 months, y ou worried that your food would run out before you got money to buy more: Never True 01/29/2025 Within the past 12 months,th e food you bought just didn't last and you didn't have enough money to get more: Never True Transportation Answer Date Recorded In the past 12 months, has l ack of transportation kept you from medical appts, meetings, work or from getting things needed for daily living? No 01/29/2025 Utilities Answer Date Recorded In the past 12 months, has t he electric, gas, oil or water company threatened to shut off services in your home? Yes 01/29/2025 Depression Answer Date Recorded Patient Health Questionnaire-2 [...] as of this encounter Progress Notes * Jeremías Rojas - 01/30/2025 8:30 AM EDT CHW Jeremías Rojas, placed outbound call to patient for assistance with SDOH as a referral was received by the provider. Patient's name and were confirmed. Patient screened positive for the following SDOH housing insecurities. Patient states is staying with her friend but is searching for her own apartment. CHW referral patient to the list of application mail out to her address on file. Patient verbalizes understanding, and able to agree with plan to follow up herself. Patient educated on extended clinic hours on Mondays through Wednesdays, and Walk-In Urgent Care Located in [facility]. Patient provided with after-hours line for [facility], , which offer night time triage service and option to transfer to special education supervisor provider if needed. documented in this encounter Plan of Treatment Upcoming Encounters Date Type Department Care Team (Late st Contact Info) Description 02/05/2025 11:15 AM EDT Office Visit [facility] MED & PEDS [address] [place] [address] Chery Nicole FNP [address] [place] [address] documented as of this encounter Visit Diagnoses Not on filedocumented in this encounter Additional Health Concerns Assessment Noted Time PHQ-9 Depression Total Score: 11 024 10:16 AM EDT documented as of this encounter Care Teams Waste Management Recycling Technician Relationship Specialty Start Date End Date Chrey Nicole FNP [address] [place] [address] PCP - General Family Medicine 01/07/22 documented as of this encounter
--- OUTSIDE RECORDS SUMMARY | 2025-01-30 12:50 | XMS_ITS | Clinical Summary ---
Author Organization [employer] Address [address] [place] [address] 7 [place] [address] Care Team Providers Care Senior Financial Consultant Name Role Phone ChadwickChery vickers ROBIN Primary Care Provider [phone] Allergies Active Allergy Reactions Criticality Noted Date Comments Penicillins Hives,Swelling 07/18/2021 Medications * This document contains information received from the source organization and may not represent a complete record from that organization. Alcohol Swabs (Alcohol Prep) 70 % pads TEST BLOOD SUGAR TWICE DAILY 3 Active TRUEplus Lancets 33G misc USE 1 TO TEST BLOOD SUGAR TWICE DAILY 3 Active nabumetone (Relafen) 500 MG tabletIndications :Chronic bilateral low back pain without sciatica TAKE 1 TABLET BY MOUTH TWICE DAILY NEEDED BACK PAIN 60 tablet 3 3 Active Blood Glucose Monitoring Suppl (FreeStyle [place] Lite) w/Device kitIndications:Ty pe 2 diabetes 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 complication, without long-term current use of insulin ([facility]) TEST BLOOD SUGAR TWICE DAILY 1 kit 4 Active FREESTYLE LITE test stripIndications: 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, without long-term current use of insulin ([facility]) Use to check blood sugar twice daily 100 each 11 4 Active ibuprofen 600 MG tablet TAKE 1 TABLET BY MOUTH EVERY 8 HOURS NEEDED FOR PAIN OR FEVER. TAKE WITH FOOD 100 tablet 3 5 Active Spacer/Aero-Holdi ng Chambers (OptiChamber Beatrice) misc 1 each every 4 (four) hours if needed (asthma). 1 each 5 Active Blood Pressure kit 1 each 2 times daily. Call [facility] if BP readings are > 140/80 1 kit 5 08/01/19 26 Active albuterol (Ventolin HFA) 108 (90 Base) MCG/ACT inhaler INHALE 2 PUFFS EVERY 4 HOURS NEEDED FOR WHEEZING AND SHORTNESS OF BREATH 18 g 11 5 Active ferrous gluconate (Fergon) 324 (38 Fe) MG tabletIndications :Microcytic anemia Take 1 pill daily. Take with a full glass of water or Vit C containing juice, and ideally 1 hour before food or 2 hours after food. Repeat blood work after medication done. 30 tablet 5 Active cholecalciferol (Vitamin D-3) 25 MCG (1000 UT) tabletIndications :Microcytic anemia,Vitamin D insufficiency Take 2 tablets daily. 60 tablet 5 Active fluticasone (Flonase) 50 MCG/ACT nasal spray Administer 1 spray into each nostril Once per day. 16 g 2 5 Active escitalopram (Lexapro) 5 MG tabletIndications :Other depression TAKE 1 TABLET BY MOUTH EVERY MORNING 90 tablet 1 5 Active losartan-hydroCHL OROthiazide (Hyzaar) 100-25 MG tablet TAKE 1 TABLET BY MOUTH EVERY DAY 90 tablet 1 5 Active rosuvastatin (Crestor) 20 MG tablet Take 1 tablet (20 mg) by mouth at bedtime. (Cholesterol) 90 tablet 1 5 12/19/19 26 Active Active Problems Problem Noted Date Diagnosed Date Cubital tunnel syndrome on right 11/24/2024 Overview (11/24/2024): 09/19/24: NCS/EMG demonstrated mild-moderate bilat carpal tunnel syndrome and mild right cubital tunnel syndrome. Assessment & Plan (12/18/2024 1:57 PM EDT): - Consult with [facility] Ortho, plan to proceed with surgery Assessment & Plan (11/24/2024 1:12 PM EDT): - Consult with [facility] Ortho, plan to proceed with surgery Bilateral carpal tunnel syndrome 08/21/2024 Overview (11/24/2024): 09/19/24: NCS/EMG demonstrated mild-moderate bilat carpal tunnel syndrome and mild right cubital tunnel syndrome. Assessment & Plan (12/18/2024 1:57 PM EDT): Consult with [facility] Ortho, plan to proceed with carpal tunnel release. Right side first. Assessment & Plan (11/24/2024 1:12 PM EDT): Consult with [facility] Ortho, plan to proceed with carpal tunnel release. Right side first. Assessment & Plan (08/21/2024 3:14 PM EDT): Order for bilateral EMG placed 08/21/24 Microcytic anemia 03/19/2024 Assessment & Plan (11/24/2024 1:10 PM EDT): -Microcytic anemia w/ low iron and Vit D. Hx of HMB undergoing eval with 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 -Initiated PO iron and Vit D supplementation [...] physical activity interventions 01/03/24: Wegovy was approved PA#[id number]. Exp: 07/05/24. 0.25mg dose started Jan 2024. Reviewed med safety and SE Assessment & Plan (03/19/2024 4:01 PM EST): Encouraged to continue with nutrition and physical activity interventions 01/03/24: Wegovy was approved PA#[id number]. Exp: 07/05/24. 0.25mg dose started Jan 2024. Reviewed med safety and SE Assessment & Plan (02/24/2024 3:29 PM EDT): Encouraged to continue with nutrition and physical activity interventions 01/03/24: Wegovy was approved PA#[id number]. Exp: 07/05/24. Plan to start 0.25mg subcutaneous [...] schedule Last PE: 02/04/24 OPH: LEANN at [facility] in Dec 2022. [...] on 01/03/24 Eye exam: Dec 2022 at [facility] Dental: due PNA [...] due Eye exam: appt November 2022 at [facility] Dental: due PNA [...] pending Eye exam: appt November 2022 at [facility] Dental: due PNA [...] 07/18/21 Eye exam: appt November 2022 at [facility] Dental: due PNA [...] the following plan: provided contact info for [phone], for OP and family therapy -No active [...] Encounters Date Type Department Care Team Description 01/30/2025 Patient Outreach [facility] MEDICINE [address] [place], [place] [phone] Chery Nicole FNP Care Coordination (CHW outreach for SDOH housing search-referral completed ) 01/29/2025 Patient Outreach [facility] [address] [place], [place] [phone] Chery Nicole FNP Pre-visit Planning (SDOH screening positive and Tobacco screening negative) 01/08/2025 3:15 PM EDT Office Visit [facility] OPTOMETRY [address] [place], [place] [phone] Gina Stringer, ETHAN Type 2 diabetes 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 ophthalmic manifestations (CMS/HCC) (Primary Dx); Hypermetropia, bilateral 01/08/2025 Travel 12/28/2024 Orders Only GENERIC EXTERNAL DATA DEPARTMENT Provider, Generic External Data 12/18/2024 9:30 AM EDT Office Visit [facility] CH[facility] MED & PEDS [address] [place], [place] [phone] Chery Nicole FNP Cubital tunnel syndrome on right (Primary Dx); Bilateral carpal tunnel syndrome; Pre-op evaluation; 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, without long-term current use of insulin (CMS/HCC); Essential hypertension 12/18/2024 Travel 12/13/2024 Orders Only GENERIC EXTERNAL DATA DEPARTMENT Provider, Generic External Data 11/28/2024 Orders Only [facility] MEDICINE [address] [place], [place] [phone] Surjit Dawn CNM Menorrhagia with regular cycle (Primary Dx) 11/28/2024 Orders Only [address] [address] Surjit Dawn CNM Menorrhagia with regular cycle (Primary Dx); Screening examination for venereal disease 11/28/2024 Results Follow-Up [address] [address] Surjit Dawn CNM Partial Thromboplastin Time, Activated (APTT), Prothrombin Time-INR, von Willebrand Factor Antigen, Factor 8 activity 11/24/2024 8:45 AM EDT Office Visit [facility] MED [facility] PEDS [address] [place], [place] [phone] Chery Nicole FNP Class 3 severe obesity with body mass index (BMI) of 50.0 to 59.9 in adult (Primary Dx); 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, without long-term current use of insulin ([facility]); Microcytic anemia; Cubital tunnel syndrome on right; Bilateral carpal tunnel syndrome 11/24/2024 Travel 11/24/2024 Telephone [facility] [address] [place], [place] [phone] Chery Nicole FNP chart prep 11/19/[address] [address] Chery Nicole FNP Other depression 11/13/[address] [address] Surjit Dawn CNM Reminder to get labs done. 11/13/[address] [phone] Surjit Dawn CNM Lab Results 10/30/2024 10:00 AM EDT Office Visit [facility] [address] [place] [phone] Lisbeth Ness MD Subacute maxillary sinusitis (Primary Dx); Acute bronchospasm due to viral infection; Cough in adult patient from Last 3 Months Immunizations Immunization Administration [...] Description 02/05/2025 11:15 AM EDT Office Visit [facility] PED[facility] [address] [place] [address] Chery Nicole, STOCK PULLER [address] [place] [address] Health Maintenance Due Date Last Done Comments HPV Vaccines (1 - 3-dose series) 2003 Hepatitis B Vaccines (3 of 3 - 19+ 3-dose series) 11/23/2024 09/28/2024, 02/04/2024 Diabetes: Foot Exam 11/24/2024 11/25/2023 Influenza Vaccine (#1) 2025 04/26/2023 Alcohol/Substance Use Screening 02/03/2025 02/04/2024 Depression Monitoring 02/17/2025 02/04/2024, 024 Postponed from 08/03/2024 (Other Medical Reasons) Diabetes: Hemoglobin A1C 06/20/2025 025, 11/24/2024, 08/21/2024, Additional history exists Cervical Cancer Screening 09/28/2025 Family Planning (PISQ) 09/28/2025 09/28/2024 HPV/Cotest 09/28/2025 09/28/2024 Pap Smear 09/28/2025 09/28/2024 Disability Screening 11/24/2025 11/24/2024 Lipid Panel 11/24/2025 11/24/2024, 0801/2024, 04/26/2023, Additional history exists Diabetes: Urine Protein Screening 12/18/2025 12/18/2024 Tobacco Screening 01/08/2026 01/08/2025 SDOH Screening 01/29/2026 01/29/2025 Eye Exam 01/08/2027 01/08/2025, 12/16, 01/08/2025, Additional [...] complication, without long-term current use of insulin ([facility]) HEMOGLOBIN A1C Routine 12/18/2024 9:47 AM EDT Pre-op evaluation CBC WITH AUTO DIFFERENTIAL Routine 12/18/2024 9:47 AM EDT Pre-op evaluation BASIC METABOLIC PANEL Routine 12/13/2024 1:50 PM EDT LIPID PANEL, STANDARD Routine 11/24/2024 9:52 AM EDT 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, without long-term current use of insulin ([facility]) VITAMIN D,25-OH,TOTAL,IA Routine 11/24/2024 9:52 AM EDT Microcytic anemia FERRITIN Routine 11/24/2024 9:52 AM EDT Microcytic anemia IRON AND TOTAL IRON BINDING CAPACITY Routine 11/24/2024 9:52 AM EDT Microcytic anemia CBC WITH AUTO DIFFERENTIAL Routine 11/24/2024 9:52 AM EDT Microcytic anemia POCT GLYCATED HEMOGLOBIN, TOTAL Routine 11/24/2024 9:04 AM EDT 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, without long-term current use of insulin ([facility]) POCT GLUCOSE Routine 11/24/2024 9:03 AM EDT 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, without long-term current use of insulin ([facility]) FACTOR 8 ACTIVITY Routine 11/21/2024 9:1 1 [...] 9:20 AM EDT Cough in adult patient HPV DNA, LOW/HIGH RISK Routine 09/28/2024 9:21 [...] Whole Blood 144(H) 60 - 115 mg/dL [facility] Comment:METER #: [id number] 12/28/2024 7:33 AM EDT 12/28/2024 7:37 AM EDT us Generic External Data Provider LAB BLOOD ORDERAB LES Final Result [facility] [address] [place] [address] [phone] * ECG 12 lead (12/18/2024 2:08 PM EDT) Narrative Chery Nicole, STOCK PULLER - 12/18/2024 2:08 PM EDT P/Pr: 120/152 ms QRS: 94 ms QT/Qtc: 410/436 ms HR: 68 bpm NSR without T-wave or ST changes us Chery Phalen STOCK PULLER ECG ORDERABLES Final Result * Chlamydia/N. Gonorrhoeae, PCR, Urine (12/18/2024 9:50 AM EDT) CT PCR, Urine NOT DETECTED Not Detect. [facility] Comment:A not detected test result [...] NG PCR, Urine NOT DETECTED Not Detect. [facility] Comment:A not detected test result [...] AM EDT 12/18/2024 1:50 PM EDT Surjit SHEIKH LAB URINE ORDERABLES Yokasta l Result Performing Organization Address [facility] de Phone Number [facility] [address] [place] [address] [phone] * (ABNORMAL) Albumin, Random Urine W/Creatinine (12/18/2024 9:50 AM EDT) Creatinine, Urine 117.78 mg/dL [facility] Microalbumin Urine 99.0 mg/L [facility] Microalbum Creatinine Ratio Ur 84.0(H) <30 ug/mg cr [facility] Comment:Albumin/Creatinine R atio Reference Ranges: Normal: < 30 ug/mg creatinine Microalbuminuria: 30 - 300 ug/mg creatinineClinical Albuminuria: > 300 ug/mg creatinine Urine 12/18/2024 9:50 AM EDT 12/18/2024 1:50 PM EDT Chery Nicole STOCK PULLER LAB URINE ORDERABLES Final Res ult Performing Organization Address [facility] Co de Phone Number [facility] [address] [place] [phone] * (ABNORMAL) CBC auto differential (12/18/2024 9:47 AM EDT) Only the most recent of2 resultswithin the time period is included. White Blood Count 6.3 4.8 - 10.8 X10*3/uL [facility] Red Blood Count 4.95 4.20 - 5.50 X10*6/uL [facility] Hemoglobin 11.0(L) 12.0 - 16.0 g/dl [facility] Hematocrit 36.1(L) 37.0 - 47.0 % [facility] Mean Corpuscular Volume 72.9(L) 80.0 - 98.0 fL [facility] Mean Corpuscular Hemoglobin 22.2(L) 27.0 - 33.0 pg [facility] Mean Corpuscular HGB Conc 30.5(L) 31.0 - 35.0 g/dl [facility] Red Cell Distribution Width 19.1(H) 11.0 - 16.0 % [facility] Platelet Count 185 160 - 400 X10*3/uL [facility] Neutrophils Percent Auto 65.8 45 - 73 % [facility] Imm Gran Pct Auto 0.5(H) 0.0 - 0.4 % [facility] Lymphocytes Percent Auto 25.6 20 - 40 % [facility] Monocytes Percent Auto 7.0 2 - 11 % [facility] Eosinophils Percent Auto 0.8 0 - 4 % [facility] Basophils Percent Auto 0.3 0 - 2 % [facility] NRBC Pct Auto 0.0 0.0 - 0.2 /100WBC [facility] Neutrophils Absolute Auto 4.2 2.0 - 8.3 x10*3/uL [facility] Imm Gran Abs Auto 0.03 0.00 - 0.03 X10*3/uL [facility] Lymphocytes Absolute Auto 1.6 1.2 - 4.9 X10*3/uL [facility] Monocytes Absolute Auto 0.4 0.1 - 1.2 X10*3/uL [facility] Eosinophils Absolute Auto 0.1 0.0 - 0.4 X10*3/uL [facility] Basophils Absolute Auto 0.0 0.0 - 0.2 X10*3/uL [facility] NRBC Abs Auto 0.000 0.0 - 0.012 X10*3/uL [facility] Blood Venous blood specimen / Unknown 12/18/2024 9:47 AM EDT 12/18/2024 1:54 PM EDT Chery Nicole [facility] LAB BLOOD ORDERABLES Final Res ult Performing Organization Address [facility] de Phone Number [facility] [address] [place] [phone] * (ABNORMAL) Hemoglobin A1c (12/18/2024 9:47 AM EDT) Hemoglobin A1c 6.9(H) <6.0 % [facility] Comment:Hemoglobin A1C Refer ence Range Adults: 4.8 - 6.0 % Non diabetic: < 6.0 % Goal: < 7.0 %Additional Action Suggested: > 8.0 %Note: Hemoglobin A1c results are invalid for patients with abnormal amounts of HbF. Blood transfusions may impact the HbA1c concentration in the patient sample. Estimated Average Glucose 151 mg/dL [facility] Comment:eAG = Estimated ave rage glucose which is %A1C expressed asaverage glucose, using the formula of the L7R-HyflduyJcgnixt Glucose study (ADAG), Diabetes Care, Vol.31,#8,2007 Blood Venous blood specimen / Unknown 12/18/2024 9:47 AM EDT 12/18/2024 1:54 PM EDT Chery Nicole [facility] LAB BLOOD ORDERABLES Final Res ult Performing Organization Address [facility] de Phone Number [facility] [address] [place] [address] [phone] * (ABNORMAL) Basic Metabolic Panel (12/13/2024 1:50 PM EDT) Sodium 137 135 - 145 mmol/L [facility] Potassium 4.1 3.3 - 5.1 mmol/L [facility] Comment:Slight Hemolysis.Int erpret result with caution. Chloride 107 96 - 108 mmol/L [facility] Carbon Dioxide 22 22 - 29 mmol/L [facility] Anion Gap 12 12 - 20 [facility] Urea Nitrogen (BUN) 7(L) 9 - 16 mg/dL [facility] Creatinine, Serum 0.52 0.5 - 1.4 mg/dL [facility] Creatinine Clr Calc Pharmacy 228.6 [facility] Comment:Provided height and weight: 170.18 cm,149.685 kg.eGFR (calculated from the MDRD study equation) and eCrCl(calculated from the Cockcroft-Gault equation) are based ondifferent parameters and may not yield comparable results.If eCrCl result is absurd, please check patient'sheight/weight. Estimated Glomerular Filt Rate >60 [facility] Comment:Chronic Kidney Disea se: Estimated GFR < 60 mL/min/1.17j3Irdkcy Kidney Disease: Estimated GFR < 15 mL/min/1.73m2 Glucose 89 60 - 115 mg/dL [facility] Calcium 8.9 8.4 - 10.2 mg/dL [facility] 12/13/2024 1:50 PM EDT 12/13/2024 1:50 PM EDT us Generic External Data Provider LAB BLOOD ORDERAB LES Final Result [facility] [address] [place] [phone] * (ABNORMAL) Vitamin D, 25-Hydroxy, Total, Immunoassay (11/24/2024 9:52 AM EDT) Vitamin D 25-OH Total 24.6(L) >30 ng/mL [facility] Comment: Health Based Reference Values*< 20 ng/mL Hmgacpelz68-53 ng/mL Insufficient> 30 ng/mL Sufficient*Patti PHILIP. N [...] 9:52 AM EDT 11/24/2024 2:41 PM EDT Cheryabhishek Nicole [facility] LAB BLOOD ORDERABLES Final Res ult Performing Organization Address [facility] Co de Phone Number [facility] [address] [place] [phone] * (ABNORMAL) Iron And Total Iron Binding Capacity (11/24/2024 9:52 AM EDT) Iron 29(L) 30 - 160 mcg/dL [facility] Total Iron Binding Capacity 376 228 - 428 mcg/dL [facility] Percent Iron Saturation 8(L) 15 - 50 % [facility] Unsaturated Iron Binding 347 ug/dL [facility] Blood Venous blood specimen / Unknown 11/24/2024 9:52 AM EDT 11/24/2024 2:41 PM EDT Cheryabhishek Nicole [facility] LAB BLOOD ORDERABLES Final Res ult Performing Organization Address [facility]/ZIP Co de Phone Number [facility] [address] [place] [phone] * Ferritin (11/24/2024 9:52 AM EDT) Ferritin 32 10 - 122 ng/mL [facility] Blood Venous blood specimen / Unknown 11/24/2024 9:52 AM EDT 11/24/2024 2:41 PM EDT us Chery Nicole STOCK PULLER LAB BLOOD ORDERABLES Final Res ult Performing Organization Address City/[facility]/ZIP Co de Phone Number [facility] [address] [place] [address] [phone] * (ABNORMAL) Lipid Panel, Standard (11/24/2024 9:52 AM EDT) Triglycerides 109 <150 mg/dL [facility] Comment:Desirable Triglyceri de: less than 150 mg/dLBorderline High Triglyceride 150-199 mg/dLHigh Triglyceride: 200-499 mg/dLVery High Triglyceride: greater than or equal to 5OO mg/dL Cholesterol 158 <200 mg/dL [facility] Comment:Desirable Cholestero l: less than 200 mg/dLBorderline High Cholesterol: 200-239 mg/dLHigh Cholesterol: greater than 239 mg/dL LDL Cholesterol Calculated 101(H) <100 mg/dL [facility] Comment:Desirable LDL: less than 100 mg/dLNear Optimal/Above Optimal LDL: 110- 129 mg/dLBorderline High LDL: 130-159 mg/dLHigh LDL: 160-189 mg/dLVery High LDL: greater than or equal to 190 mg/dL HDL Cholesterol 36(L) >40 mg/dL [facility] Comment:Desirable HDL: great er than 40 mg/dL Note: This HDL assay may give artificially low results in patients with liver disease. Blood Venous blood specimen / Unknown 11/24/2024 9:52 AM EDT 11/24/2024 2:41 PM EDT Chery Nicole STOCK PULLER LAB BLOOD ORDERABLES Final Res ult Performing Organization Address City/[facility]/ZIP Co de Phone Number [facility] [address] [place] [phone] * (ABNORMAL) POCT A1C (11/24/2024 9:04 AM EDT) Hemoglobin A1C 6.7(A) 4.0 - 5.7 % QC Media Lot # Comment:[id number] Lot# Expiration Date Comment:05/18/2026 Blood 11/24/2024 9:04 AM EDT Chery Nicole STOCK PULLER POINT OF CARE TEST ENTER/EDIT ORDERABLES Final Result * POCT glucose manually resulted (11/24/2024 9:03 AM EDT) Glucose Blood, POC 134 60 - 200 mg/dL QC Media Lot # Comment:[id number] Lot# Expiration Date Comment:03/15/2025 Blood Capillary blood specimen / Unknown 11/24/2024 9:03 AM EDT Chery Nicole STOCK PULLER POINT OF CARE TEST ENTER/EDIT ORDERABLES Final Result * von Willebrand Factor Antigen (11/21/2024 9:11 AM EDT) Von Willebrand Factor Antigen 156 50 - 217 % [facility] Comment:THIS TEST WAS PERFOR MED AT:[id number] [place] [email or web address] NORIEGA MD,PHD 11/21/2024 9:11 AM EDT 11/21/2024 12:14 PM EDT Surjit Dawn [facility] LAB BLOOD ORDERABLES Yokasta l Result [facility] [address] [place] [phone] * Partial Thromboplastin Time, Activated (APTT) (11/21/2024 9:11 AM EDT) Partial Thromboplastin Time 30.8 26.0 - 36.8 SEC [facility] Comment:For information rega rding the monitoring of direct thrombininhibitors, please refer to Pharmacy. Blood Venous blood specimen / Unknown 11/21/2024 9:11 AM EDT 11/21/2024 12:14 PM EDT Surjit Dawn [facility] LAB BLOOD ORDERABLES Yokasta l Result Performing Organization Address [facility] Co de Phone Number [facility] [address] [place] [phone] * Prothrombin Time-INR (11/21/2024 9:11 AM EDT) Prothrombin Time 11.0 10.9 - 12.4 SEC [facility] INTERNATIONAL NORM RATIO 1.0 0.9 - 1.1 [facility] Comment:INTERNATIONAL NORMAL IZED RATIO (INR) [...] EDT 11/21/2024 12:14 PM EDT Surjit Dawn [facility] LAB BLOOD ORDERABLES Yokasta l Result Performing Organization Address [facility] Co de Phone Number [facility] [address] [place] [phone] * Factor 8 activity (11/21/2024 9:11 AM EDT) Factor VIII Activity, Clotting 152 50 - 180 % normal [facility] Comment:For additional infor mation please refer to:http://education.RentMatch/faq/TXX748(This link is being provided for informational/educational purposes only.)THIS TEST WAS PERFORMED AT:[employer]/[email or web address] [id number] [place] [id number] NORIEGA MD,PHD Blood Venous blood specimen / Unknown 11/21/2024 9:11 AM EDT 11/21/2024 12:14 PM EDT us Surjit Dawn [facility] LAB BLOOD ORDERABLES Yokasta l Result Performing Organization Address [facility]/ZIP Co de Phone Number [facility] [address] [place] [phone] * Influenza B (ID NOW Rapid Molecular) (10/30/2024 9:28 AM EDT) [facility] Influenza B Negative Negative, Indeterminate [facility] Swab 10/30/2024 9:28 AM EDT us Lisbeth Ness MD POINT OF CARE TEST ENTER /EDIT ORDERABLES Final Result Performing Organization Address [facility] Co me Phone Number [facility] [address] [place] [phone] * Influenza A (ID NOW Rapid Molecular) (10/30/2024 9:28 AM EDT) [facility] Influenza A Negative Negative, Indeterminate [facility] Swab 10/30/2024 9:28 AM EDT us Lisbeth Ness MD POINT OF CARE TEST ENTER /EDIT ORDERABLES Final Result Performing Organization Address [facility] Co de Phone Number [facility] [address] [place] [phone] * POCT Rapid COVID Ag (10/30/2024 9:20 AM EDT) [facility] Rapid COVID Ag Negative Swab 10/30/2024 9:20 AM EDT us Lisbeth Ness MD POINT OF CARE TEST ENTER /EDIT ORDERABLES Final Result * (ABNORMAL) HPV DNA, Low/High Risk (09/28/2024 9:21 AM EDT) HPV High Risk Positive(A) Negative [facility] HPV Genotype 16 Negative Negative [facility] HPV Genotype 18 Negative Negative [facility] Comment:HPV testing performe d at [facility] (CLIA#[id number]), [address] [place] [address].Testing for HPV was performed using the [employer]system. The presence of HPV in the female [...] [facility] LAB BLOOD ORDERABLES Yokasta crockett Result [facility] [address] [place] [phone] * Pap Smear (09/28/2024 9:21 AM EDT) Swab Cervix uteri structure / Unknown 09/28/2024 9:21 AM EDT 09/29/2024 9:40 AM EDT Nitin [facility] - 10/04/2024 10:33 AM EDT ----- ------- Name: Kitty Marley Age/Sex: 34/F : 1990 Unit#: [id number] Attend Dr: SURJIT DAWN CNM Re09/28/24 Status: DEP [facility]ch[facility] ----- ------- SPEC : [id number] RECD: 09/29/24 STATUS: TUAN CARRION NUM: [id number] KACY: 09/28/[address] [facility] [address]: SURJIT DAWN [facility] ENTERED: 09/29/247 SP TYPE: Pap Smr OTHR DR: ORDERED: Pap Smear Interpretation Satisfactory for evaluation. Negative for intraepithelial lesion or malignancy. No endocervical cells seen. HPV High Risk: Positive HPV Genotyping 16: Negative HPV Genotyping 18: Negative Clinical Information LMP: Unknown date Previous PAP test: Unknown date/findings Material Received ThinPrep-Cervical ----- ------- Signed (signature on file) NADINE Cha ([facility]) 10/04/24 1033 ----- ------- END OF REPORT Surjit Dawn CN LAB CYTOLOGY ORDERABLES F inal Result Performing Organization Address [facility]/ZIP Co de Phone Number [facility] [address] [place] [phone] * Hepatitis C Viral RNA, Quantitative, Real-Time PCR (01/03/2024 8:16 AM EDT) Pathologist [facility] Hepatitis C Viral Load <15 NOT DETECTED NOT DETECTED IU/mL [facility] HCV Log PCR <1.18 NOT DETECTED NOT DETECTED Log IU/mL [facility] Comment:For additional infor julian, please refer tohttp://education.RentMatch/faq/SFN64t4(This link is being provided for informational/educational purposes only.)THIS TEST WAS PERFORMED AT:[employer] [place] [id number] CALLAWAY MD Blood 01/03/2024 8:16 AM EDT 01/03/2024 11:32 AM EDT Chery Nicole [facility] LAB BLOOD ORDERABLES Final Res ult Performing Organization Address [facility] de Phone Number [facility] [address] [place] [phone] * HIV-1/2 Antigen and Antibodies, Fourth Generation, with Reflexes (01/03/2024 8:16 AM EDT) HIV AB/AG Nonreactive Nonreactive [facility] Comment:HIV-1 p24 Ag and/or HIV-1/HIV-2 Ab not detected.A test result that is nonreactive does not exclude thepossibility of exposure to or infection with HIV-1 and/orHIV-2. Nonreactive results in this assay for individualswith prior exposure to HIV-1 and/or HIV-2 may be due toantigen and antibody levels that are below the limit ofdetection of this assay.The [employer] HIV Ag/Ab Combo assay result andsupplemental assay results should be interpreted inconjunction with the patient's clinical presentation,history and other laboratory results. If the results areinconsistent with clinical evidence, additional testing issuggested to confirm the result. Blood Venous blood specimen / Unknown 01/03/2024 8:16 AM EDT 01/03/2024 11:32 AM EDT us Chery Nicole [facility] BLOOD ORDERABLES Final Res ult [facility] [address] [place] [phone] from Last 3 Months or Most Recently Relevant to Health Maintenance Insurance [facility] C3 Care Teams Senior Financial Consultant Relationship Specialty Start Date End Date Chery Nicole FNP [address] [place] [address] PCP - General Family Medicine 01/07/22
--- OUTSIDE RECORDS SUMMARY | 2025-01-30 12:50 | XMS_ITS | Encounter Summary ---
Author Organization [employer] Address [address] [place] [address] Care Team Providers Care Athletic Monitor Name Role Phone Chery Nicole Primary Care Provider [phone] Reason for Visit * Reason Comments Pre-visit Planning SDOH screening posit john and Tobacco screening negative Encounter Details Date Type Department Care Team ([facility] st Contact Info) Description 01/29/2025 Patient Outreach [facility] [address] [place] [address] Chery Nicole FNP [address] [place] [address] Pre-visit Planning (SDOH screening positive and Tobacco screening negative) Social History Tobacco Use Types Packs/Day Years [...] as of this encounter Progress Notes * [place] - 01/29/2025 4:41 PM EDT CC Von Schafer placed successful outbound call to patient for pre-visit planning. Patient name and confirmed. Patient confirms appt date and time, and has transportation arrangements. Biggest concern for appointment at this time is elbow pain. Patient advised to bring to appointment a photo id and insurance card. Appropriate screenings completed in anticipation of appointment. SDOH positive. Patient looking for assistance with utilities. Referral will be placed. documented in this encounter Plan of Treatment Upcoming Encounters Date Type Department Care Team ([facility] st Contact Info) Description 02/05/2025 11:15 AM EDT Office Visit [facility] [address] [place] [address] Chery Nicole FNP [address] [place] [address] documented as of this encounter Visit Diagnoses Not on filedocumented in this encounter Additional Health Concerns Assessment Noted Time PHQ-9 Depression Total Score: 11 024 10:16 AM EDT documented as of this encounter Care Teams Athletic Monitor Relationship Specialty Start Date End Date Chery Nicole FNP [address] [place] [address] PCP - General Family Medicine 01/07/22 documented as of this encounter
--- OUTSIDE RECORDS SUMMARY | 2025-01-30 12:50 | XMS_ITS | Encounter Summary ---
Author Organization [employer] Address [address] [place] [address] Care Team Providers Care Cut Off Saw Operator Metal Name Role Phone Chery Nicole Primary Care Provider [phone] Reason for Visit * Reason Comments Med Refill Encounter Details Date Type Department Care Team ([facility] Contact Info) Description 02/15/2024 Refill [facility] [address] [place], [place] [phone] Chery Nicole FNP [address] [place] [address] Social History Tobacco Use Types Packs/Day Years [...] with others, in a hotel, in a long-term, living outside on the street, on a [...] 11:15 AM EDT Office Visit [facility] [address] [place] [address] Chery Nicole FNP [address] [place] [address] documented as of this encounter Visit Diagnoses Not on filedocumented in this encounter Additional Health Concerns Assessment Noted Time PHQ-9 Depression Total Score: 11 024 10:16 AM EDT documented as of this encounter Care Teams Cut Off Saw Operator Metal Relationship Specialty Start Date End Date Chery Nicole FNP [address] [place] [address] PCP - General Family Medicine 01/07/22 documented as of this encounter
== END 2025-01-30 10:27 | disposition home or self-care (01) ==
LOC: HO.HOS 09:54
PROVIDERS: PCP Internal Medicine
DX: G56.21 Lesion of ulnar nerve, right upper limb (principal); G56.01 Carpal tunnel syndrome, right upper limb
CPT/HCPCS: 99024

== ENCOUNTER → 2025-01-30 09:54 | Outpatient (BNVA) | payer MEDICAID, SELFPAY | PROVIDERS: PCP Internal Medicine | DX: G56.21 Lesion of ulnar nerve, right upper limb (principal); G56.01 Carpal tunnel syndrome, right upper limb | CPT/HCPCS: 99212 ==

== ENCOUNTER 2025-03-14 09:17 | Outpatient (AMB) | payer MEDICAID, SELFPAY ==
--- NOTE | 2025-03-14 09:20 | MHC.OFFVIS ---
Vital Signs 03/14/25 09:27 Height 5 ft 7 in Weight 383 lb BMI 60.0 Handedness Right Intake Visit Reasons: PO RT cubital/CTR 12/28/24 AR Intake Note: Kitty is a 34 year old right hand dominant female who presents today for her first post-operative visit after undergoing a right cubital and carpal tunnel release, DOS: 12/28/[address] Tran. Patient has been attempting occupational therapy and reports she feels a big improvement. She says at first she could not move her right arm but now she is able to. Only complaint is pain on the lateral aspect on the right elbow. Adult Probation Officer Required: Yes Adult Probation Officer Language: Wild Life Photographer Services: Adult Probation Officer Present (ipad) Adult Probation Officer Name: [id number] Allergies Penicillins Adverse Reaction (Intermediate, Verified 03/14/25 09:28) Swelling/hives HPI HPI PO RT cubital/CTR 12/28/24 AR: Details: Kitty is a 34 year old right hand dominant female who presents today for her first post-operative visit after undergoing a right cubital and carpal tunnel release, DOS: 12/28/[address] Tran. Patient has been attempting occupational therapy and reports she feels a big improvement. She says at first she could not move her right arm but now she is able to. Only complaint is mild pain on the lateral aspect on the right elbow. [facility] Medical History Class 3 severe obesity due to excess calories with body mass index (BMI) of 50.0 to 59.9 in adult Microcytic anemia Chronic low back pain CARMELO (generalized anxiety disorder) Type 2 diabetes mellitus HTN (hypertension) Surgical History Hx of wisdom tooth extraction Hx of tubal ligation Hx of cholecystectomy Social History Are you a primary career development consultant to a significant other at home: No Do you presently have visiting nurse or other home services: No Alcohol intake: never Comment: counts correct Patient Tobacco Use Status: Never used Tobacco Current occupational status: employed 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 Good APB muscle firing and good finger cross. Vascular: Capillary refill brisk. ROM: Patient can make a fist and extend all their digits. Skin: Well approximated and well healing incision sites noted on the medial aspect of the right elbow and the volar right wrist No lacerations or abrasions noted. General: Patient does have very minimal tenderness to palpation about the incision site of the medial aspect of the right elbow No ecchymosis. No erythema or evidence of infection. Assessment & Plan Assessment & Plan (1) Cubital tunnel syndrome on right: Code(s): G56.21 - Lesion of ulnar nerve, right upper limb Category: Medical (2) Right carpal tunnel syndrome: Code(s): G56.01 - Carpal tunnel syndrome, right upper limb Category: Medical Plan 1. Status post Right cubital tunnel release 2. Status post right carpal tunnel release DOS 12/28/2024 With good symptom resolution postoperatively Patient appears to be recovering well postoperatively Patient is educated about the typical recovery course No signs or symptoms worrisome for potential surgical site infection May return full duty to work with no active restrictions at this time Patient is also educated that she should continue working on range of motion exercises of the right elbow and hand Patient will follow-up as needed with any acute concerns Coding Level of Care Code Global (57153) Diagnoses Cubital tunnel syndrome on right G56.21 Right carpal tunnel syndrome G56.01
[2025-03-14 09:27] VITALS: BMI 60.0
--- OUTSIDE RECORDS SUMMARY | 2025-03-14 10:36 | XMS_ITS | Clinical Summary ---
Author Organization [employer] Address [address] [facility] 7 [place] [address] Care Team Providers Care Model Artists' Name Role Phone ChadwickChery vickers ROBIN Primary Care Provider [phone] Allergies Active Allergy Reactions Criticality Noted Date [...] 3 Active Blood Glucose Monitoring Suppl (FreeStyle Closplint Lite) w/Device kitIndications:Ty pe 2 diabetes 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 complication, without long-term current use of insulin ([facility]) TEST BLOOD SUGAR TWICE DAILY 1 kit 4 Active FREESTYLE LITE test stripIndications: 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, without long-term current use of insulin (HCC) Use to check blood sugar twice daily [...] kit 1 each 2 times daily. Call [facility] if BP readings are > 140/80 1 kit 5 026 Active albuterol (Ventolin HFA) 108 (90 [...] at bedtime. (Cholesterol) 90 tablet 1 5 026 Active azithromycin (Zithromax) 250 MG tablet Take 2 tablets (500 mg) by mouth Once per day for 1 day, THEN 1 tablet (250 mg) Once per day for 4 days. 6 tablet 5 025 benzonatate (Tessalon Perles) 100 MG capsule Take 1 capsule (100 mg) by mouth if needed in the morning, at noon, and at bedtime for cough for up to 7 days. Do not crush or chew. 20 capsule 5 025 Active Problems Problem Noted Date Diagnosed Date Cubital tunnel syndrome on right 11/24/2024 Overview (11/24/2024): 09/19/24: NCS/EMG demonstrated mild-moderate bilat carpal tunnel syndrome and mild right cubital tunnel syndrome. Assessment & Plan (12/18/2024 1:57 PM EDT): - Consult with [facility] Ortho, plan to proceed with surgery Assessment & Plan (11/24/2024 1:12 PM EDT): - Consult with [facility] Orth[facility], plan to proceed with surgery Bilateral carpal tunnel syndrome 08/21/2024 Overview (11/24/2024): 09/19/24: NCS/EMG demonstrated mild-moderate bilat carpal tunnel syndrome and mild right cubital tunnel syndrome. Assessment & Plan (12/18/2024 1:57 PM EDT): Consult with [facility] Ortho, plan to proceed with carpal tunnel release. Right side first. Assessment & Plan (11/24/2024 1:12 PM EDT): Consult with [facility] Ortho, plan to proceed with carpal tunnel release. Right side first. Assessment & Plan (08/21/2024 3:14 PM EDT): Order for bilateral EMG placed 08/21/24 Microcytic anemia 03/19/2024 Assessment & Plan (11/24/2024 1:10 PM EDT): -Microcytic anemia w/ low iron and Vit D. Hx of HMB undergoing eval with [facility] CNM/NEWSPAPER OR PERIODICAL EDITOR. -Initiated PO iron and Vit D supplementation [...] physical activity interventions 01/03/24: Wegovy was approved PA#[id number]. Exp: 07/05/24. 0.25mg dose started Jan 2024. Reviewed med safety and SE Assessment & Plan (03/19/2024 4:01 PM EST): Encouraged to continue with nutrition and physical activity interventions 01/03/24: Wegovy was approved PA#[id number]. Exp: 07/05/24. 0.25mg dose started Jan 2024. Reviewed med safety and SE Assessment & Plan (02/24/2024 3:29 PM EDT): Encouraged to continue with nutrition and physical activity interventions 01/03/24: Koffigovy was approved PA#[id number]. Exp: 07/05/24. Plan to start 0.25mg subcutaneous [...] schedule Last PE: 02/04/24 OPH: LEANN at [facility] in Dec 2022. No [...] on 01/03/24 Eye exam: Dec 2022 at [facility] Dental: due PNA (PPSV, [...] due Eye exam: appt November 2022 at [facility] Dental: due PNA (PPSV, [...] pending Eye exam: appt November 2022 at [facility] Dental: due PNA (PPSV, [...] 07/18/21 Eye exam: appt November 2022 at [facility] Dental: due PNA (PPSV, [...] the following plan: provided contact info for [facility]-[phone], for OP and family therapy -No active [...] Encounters Date Type Department Care Team Description 03/01/2025 9:30 AM EDT Office Visit [facility] [address] [place] [address] Edvin, Ester, OD Hyperopia of both eyes (Primary Dx) 02/13/2025 2:20 PM EDT Office Visit [facility] [address] [place] [address] Anh Duran MD Acute URI (Primary Dx); Primary hypertension 02/13/2025 Travel 02/02/2025 Telephone [facility] [address] [place], [place] [phone] Chery Nicole FNP Chart prep 01/30/2025 Patient Outreach [facility] [address] [place], [place] [phone] Chery Nicole FNP Care Coordination (CHW outreach for SDOH housing search-referral completed ) 01/29/2025 Patient Outreach [facility] [address] [place] [address] Chery Nicole FNP Pre-visit Planning (SDOH screening positive and Tobacco screening negative) 01/08/2025 3:15 PM EDT Office Visit [facility] [address] [place] [address] Gina Stringer, OD Type 2 diabetes 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 ophthalmic manifestations (CMS/HCC) (Primary Dx); Hypermetropia, bilateral 01/08/2025 Travel 12/28/2024 Orders Only GENERIC EXTERNAL DATA DEPARTMENT Provider, Generic External Data 12/18/2024 9:30 AM EDT Office Visit [facility] [address] [place] [address] Chery Nicole FNP Cubital tunnel syndrome on right (Primary Dx); Bilateral carpal tunnel syndrome; Pre-op evaluation; 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, without long-term current use of insulin (CMS/HCC); Essential hypertension 12/18/2024 Travel 12/13/2024 Orders Only GENERIC EXTERNAL DATA DEPARTMENT Provider, Generic External Data from Last 3 Months Immunizations Immunization Administration [...] Sign Reading Time Taken Comments Blood Pressure 161/88 02/13/2025 2:30 PM EDT Pulse 89 02/13/2025 2:30 PM EDT Temperature 36.9 C (98.4 F) 02/13/2025 2:30 PM EDT Respiratory Rate 18 02/13/2025 2:30 PM EDT Oxygen Saturation 98% 02/13/2025 2:30 PM EDT Inhaled Oxygen Concentration - - Weight 148 kg (326 lb) 02/13/2025 2:30 PM EDT Height 170.2 cm (5' 7 ) 12/18/2024 8:58 AM EDT Body Mass Index 51.06 12/18/2024 8:58 AM EDT Plan of Treatment Upcoming Encounters Date Type Department Care Team (Late st Contact Info) Description 04/02/2025 3:15 PM EST Office Visit [facility] [address] [place] [address] Bonnie Chery, PAYMENT POSTER [address] [place] [address] Health Maintenance Due Date Last Done Comments Alcohol/Substance Use Screening 2000 HPV Vaccines (1 - 3-dose series) 2003 Depression Monitoring 08/03/2024 02/04/2024, 024 Hepatitis B Vaccines (3 of 3 - 19+ 3-dose series) 11/23/2024 09/28/2024, 02/04/2024 Diabetes: Foot Exam 11/24/2024 11/25/2023 Influenza Vaccine (#1) 2025 04/26/2023 Diabetes: Hemoglobin A1C 06/20/2025 025, 11/24/2024, 08/21/2024, Additional history exists Cervical Cancer Screening 09/28/2025 Family Planning (PISQ) 09/28/2025 09/28/2024 HPV/Cotest 09/28/2025 09/28/2024 Pap Smear 09/28/2025 09/28/2024 Disability Screening 11/24/2025 11/24/2024 Lipid Panel 11/24/2025 11/24/2024, 08/01/2024, 04/26/2023, Additional history exists Diabetes: Urine Protein Screening 12/18/2025 12/18/2024 SDOH Screening 01/29/2026 01/29/2025 Tobacco Screening 02/13/2026 02/13/2025 Eye Exam 01/08/2027 01/08/2025, 0809/2024, 01/08/2025, Additional history exists DTaP/Tdap/Td Vaccines (2 [...] without long-term current use of insulin ([facility]) HEMOGLOBIN A1C Routine 12/18/2024 9:47 AM EDT Pre-op evaluation CBC WITH AUTO DIFFERENTIAL Routine 12/18/2024 9:47 AM EDT Pre-op evaluation BASIC METABOLIC PANEL Routine 12/13/2024 1:50 PM EDT LIPID PANEL, STANDARD Routine 11/24/2024 9:52 AM EDT 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, without long-term current use of insulin (CMS/HCC) HPV DNA, LOW/HIGH RISK Routine 09/28/2024 9:21 [...] Glucose, Whole Blood (12/28/2024 7:33 AM EDT) [facility] Glucose, Whole Blood 144(H) 60 - 115 mg/dL [facility] Comment:METER #: [id number] 12/28/2024 7:33 AM EDT 12/28/2024 7:37 AM EDT us Generic External Data Provider LAB BLOOD ORDERAB LES Final Result [facility] [address] [place] [address] [phone] * ECG 12 lead (12/18/2024 2:08 PM EDT) Narrative Chery Nicole FNP - 12/18/2024 2:08 PM EDT P/Pr: 120/152 ms QRS: 94 ms QT/Qtc: 410/436 ms HR: 68 bpm NSR without T-wave or ST changes us Chery KELLY ECG ORDERABLES Final Result * Chlamydia/N. Gonorrhoeae, PCR, Urine (12/18/2024 9:50 AM EDT) CT PCR, Urine NOT DETECTED Not Detect. [facility] Comment:A not detected test result [...] NG PCR, Urine NOT DETECTED Not Detect. [facility] Comment:A not detected test result [...] EDT 12/18/2024 1:50 PM EDT us Surjit Dawn [facility] LAB URINE ORDERABLES Yokasta l Result [facility] [address] [place] [phone] * (ABNORMAL) Albumin, Random Urine W/Creatinine (12/18/2024 9:50 AM EDT) Pathologist [facility] Creatinine, Urine 117.78 mg/dL [facility] Microalbumin Urine 99.0 mg/L [facility] Microalbum Creatinine Ratio Ur 84.0(H) <30 ug/mg cr [facility] Comment:Albumin/Creatinine R atio Reference Ranges: Normal: < 30 ug/mg creatinine Microalbuminuria: 30 - 300 ug/mg creatinineClinical Albuminuria: > 300 ug/mg creatinine Urine 12/18/2024 9:50 AM EDT 12/18/2024 1:50 PM EDT us Chery Nicole PAYMENT POSTER LAB URINE ORDERABLES Final Res ult [facility] [address] [place] [phone] [phone] * (ABNORMAL) CBC auto differential (12/18/2024 9:47 AM EDT) White Blood Count 6.3 4.8 - 10.8 X10*3/uL [facility] Red Blood Count 4.95 4.20 - 5.50 X10*6/uL [facility] Hemoglobin 11.0(L) 12.0 - 16.0 g/dl [facility] Hematocrit 36.1(L) 37.0 - 47.0 % [facility] Mean Corpuscular Volume 72.9(L) 80.0 - 98.0 fL [facility] Mean Corpuscular Hemoglobin 22.2(L) 27.0 - 33.0 pg [facility] Mean Corpuscular HGB Conc 30.5(L) 31.0 - 35.0 g/dl [facility] Red Cell Distribution Width 19.1(H) 11.0 - 16.0 % [facility] Platelet Count 185 160 - 400 X10*3/uL [facility] Neutrophils Percent Auto 65.8 45 - 73 % [facility] Imm Gran Pct Auto 0.5(H) 0.0 - 0.4 % [facility] Lymphocytes Percent Auto 25.6 20 - 40 % [facility] Monocytes Percent Auto 7.0 2 - 11 % [facility] Eosinophils Percent Auto 0.8 0 - 4 % [facility] Basophils Percent Auto 0.3 0 - 2 % [facility] NRBC Pct Auto 0.0 0.0 - 0.2 /100WBC [facility] Neutrophils Absolute Auto 4.2 2.0 - 8.3 x10*3/uL [facility] Imm Gran Abs Auto 0.03 0.00 - 0.03 X10*3/uL [facility] Lymphocytes Absolute Auto 1.6 1.2 - 4.9 X10*3/uL [facility] Monocytes Absolute Auto 0.4 0.1 - 1.2 X10*3/uL [facility] Eosinophils Absolute Auto 0.1 0.0 - 0.4 X10*3/uL [facility] Basophils Absolute Auto 0.0 0.0 - 0.2 X10*3/uL [facility] NRBC Abs Auto 0.000 0.0 - 0.012 X10*3/uL [facility] Blood Venous blood specimen / Unknown 12/18/2024 9:47 AM EDT 12/18/2024 1:54 PM EDT us Chery Nicole [facility] LAB BLOOD ORDERABLES Final Res ult [facility] [address] [place] [phone] * (ABNORMAL) Hemoglobin A1c (12/18/2024 9:47 AM EDT) Hemoglobin A1c 6.9(H) <6.0 % [facility] Comment:Hemoglobin A1C Refer ence Range Adults: 4.8 - 6.0 % Non diabetic: < 6.0 % Goal: < 7.0 %Additional Action Suggested: > 8.0 %Note: Hemoglobin A1c results are invalid for patients with abnormal amounts of HbF. Blood transfusions may impact the HbA1c concentration in the patient sample. Estimated Average Glucose 151 mg/dL [facility] Comment:eAG = Estimated ave rage glucose which is %A1C expressed asaverage glucose, using the formula of the M3V-EvykvvaEqzeftl Glucose study (ADAG), Diabetes Care, Vol.31,#8,2007 Blood Venous blood specimen / Unknown 12/18/2024 9:47 AM EDT 12/18/2024 1:54 PM EDT us Chery Nicole PAYMENT POSTER LAB BLOOD ORDERABLES Final Res ult [facility] [address] [place], [place] [phone] * (ABNORMAL) Basic Metabolic Panel (12/13/2024 1:50 PM EDT) Sodium 137 135 - 145 mmol/L [facility] Potassium 4.1 3.3 - 5.1 mmol/L [facility] Comment:Slight Hemolysis.Int erpret result with caution. Chloride 107 96 - 108 mmol/L [facility] Carbon Dioxide 22 22 - 29 mmol/L [facility] Anion Gap 12 12 - 20 [facility] Urea Nitrogen (BUN) 7(L) 9 - 16 mg/dL [facility] Creatinine, Serum 0.52 0.5 - 1.4 mg/dL [facility] Creatinine Clr Calc Pharmacy 228.6 [facility] Comment:Provided height and weight: 170.18 cm,149.685 kg.eGFR (calculated from the MDRD study equation) and eCrCl(calculated from the Cockcroft-Gault equation) are based ondifferent parameters and may not yield comparable results.If eCrCl result is absurd, please check patient'sheight/weight. Estimated Glomerular Filt Rate >60 [facility] Comment:Chronic Kidney Disea se: Estimated GFR < 60 mL/min/1.69u5Lvnjzq Kidney Disease: Estimated GFR < 15 mL/min/1.73m2 Glucose 89 60 - 115 mg/dL [facility] Calcium 8.9 8.4 - 10.2 mg/dL [facility] 12/13/2024 1:50 PM EDT 12/13/2024 1:50 PM EDT us Generic External Data Provider LAB BLOOD ORDERAB LES Final Result [facility] [address] [place] [address] [phone] * (ABNORMAL) Lipid Panel, Standard (11/24/2024 9:52 AM EDT) Triglycerides 109 <150 mg/dL [facility] Comment:Desirable Triglyceri de: less than 150 mg/dLBorderline High Triglyceride 150-199 mg/dLHigh Triglyceride: 200-499 mg/dLVery High Triglyceride: greater than or equal to 5OO mg/dL Cholesterol 158 <200 mg/dL [facility] Comment:Desirable Cholestero l: less than 200 mg/dLBorderline High Cholesterol: 200-239 mg/dLHigh Cholesterol: greater than 239 mg/dL LDL Cholesterol Calculated 101(H) <100 mg/dL [facility] Comment:Desirable LDL: less than 100 mg/dLNear Optimal/Above Optimal LDL: 110- 129 mg/dLBorderline High LDL: 130-159 mg/dLHigh LDL: 160-189 mg/dLVery High LDL: greater than or equal to 190 mg/dL HDL Cholesterol 36(L) >40 mg/dL [facility] Comment:Desirable HDL: great er than 40 mg/dL Note: This HDL assay may give artificially low results in patients with liver disease. Blood Venous blood specimen / Unknown 11/24/2024 9:52 AM EDT 11/24/2024 2:41 PM EDT us Chery Nicole PAYMENT POSTER LAB BLOOD ORDERABLES Final Res ult [facility] [address] [place] [phone] * (ABNORMAL) HPV DNA, Low/High Risk (09/28/2024 9:21 AM EDT) HPV High Risk Positive(A) Negative [facility] HPV Genotype 16 Negative Negative [facility] HPV Genotype 18 Negative Negative [facility] Comment:HPV testing performe d at [facility] (CLIA#[id number]), [address] [place] [phone].Testing for HPV was performed using the Rohit [...] 09/29/2024 9:40 AM EDT us Surjit Dawn CNM LAB BLOOD ORDERABLES Yokasta l Result [facility] [address] [place] [phone] * Pap Smear (09/28/2024 9:21 AM EDT) Swab Cervix uteri structure / Unknown 09/28/2024 9:21 AM EDT 09/29/2024 9:40 AM EDT Narrative [facility] - 10/04/2024 10:33 AM EDT ----- ------- Name: Kitty Marley Age/Sex: 34/F : 1990 Unit#: [id number] Attend Dr: SURJIT DAWN CNM Re09/28/24 Status: DEP REF Location: [facility] Disch: ----- ------- SPEC : [id number] RECD: 09/29/24 STATUS: TUAN CARRION NUM: [id number] KACY: 09/28/24 [facility] DR: SURJIT DAWN CNM ENTERED: 09/29/24-7 SP TYPE: Pap Smr OTHR DR: ORDERED: Pap Smear Interpretation Satisfactory for evaluation. Negative for intraepithelial lesion or malignancy. No endocervical cells seen. HPV High Risk: Positive HPV Genotyping 16: Negative HPV Genotyping 18: Negative Clinical Information LMP: Unknown date Previous PAP test: Unknown date/findings Material Received ThinPrep-Cervical ----- ------- Signed (signature on file) NADINE Cha (ASCP) 10/04/24 1033 ----- ------- END OF REPORT Surjit Rizzardini CNM LAB CYTOLOGY ORDERABLES F inal Result Performing Organization Address [facility]/ZIP Co de Phone Number [facility] [address] [place] [address] [phone] * Hepatitis C Viral RNA, Quantitative, Real-Time PCR (01/03/2024 8:16 AM EDT) Pathologist [facility] Hepatitis C Viral Load <15 NOT DETECTED NOT DETECTED IU/mL [facility] HCV Log PCR <1.18 NOT DETECTED NOT DETECTED Log IU/mL [facility] Comment:For additional infor mation, please refer tohttp://education.Ometrics/faq/JHD92p0(This link is being provided for informational/educational purposes only.)THIS TEST WAS PERFORMED AT:[facility] [place] [phone] CALLAWAY MD Blood 01/03/2024 8:16 AM EDT 01/03/2024 11:32 AM EDT us Chery Nicole PAYMENT POSTER LAB BLOOD ORDERABLES Final Res ult Performing Organization Address [facility] Co de Phone Number [facility] [address] [place] [address] [phone] * HIV-1/2 Antigen and Antibodies, Fourth Generation, with Reflexes (01/03/2024 8:16 AM EDT) Pathologist [facility] HIV AB/AG Nonreactive Nonreactive [facility] Comment:HIV-1 p24 Ag and/or HIV-1/HIV-2 Ab not detected.A test result that is nonreactive does not exclude thepossibility of exposure to or infection with HIV-1 and/orHIV-2. Nonreactive results in this assay for individualswith prior exposure to HIV-1 and/or HIV-2 may be due toantigen and antibody levels that are below the limit ofdetection of this assay.The [employer] Alinity HIV Ag/Ab Combo assay result andsupplemental assay results should be interpreted inconjunction with the patient's clinical presentation,history and other laboratory results. If the results areinconsistent with clinical evidence, additional testing issuggested to confirm the result. Blood Venous blood specimen / Unknown 01/03/2024 8:16 AM EDT 01/03/2024 11:32 AM EDT us Chery KELLY LAB BLOOD ORDERABLES Final Res ult [facility] [address] [place] [address] [phone] from Last 3 Months or Most Recently Relevant to Health Maintenance Insurance [facility] C3 Care Teams Model Artists' Relationship Specialty Start Date End Date Chery Nicole FNP [address] [place] [phone] PCP - General Family Medicine 01/07/22
--- OUTSIDE RECORDS SUMMARY | 2025-03-14 10:36 | XMS_ITS | Encounter Summary ---
Author Organization [employer] Address [address] [place] [address] Care Team Providers Care Career Technical Education Teacher Name Role Phone Chery Nicole Primary Care Provider Reason for Visit * Reason Comments Med Refill Encounter Details Date Type Department Care Team ([facility] Contact Info) Description 02/15/2024 Refill [facility] [address] [place], [place] [phone] Chery Nicole FNP [address] [place] [address] Social History Tobacco Use Types Packs/Day Years [...] Description 04/02/2025 3:15 PM EST Office Visit [facility] [address] [place] [address] Chery Nicole FNP [address] [place] [address] documented as of this encounter Visit Diagnoses Not on filedocumented in this encounter Additional Health Concerns Assessment Noted Time PHQ-9 Depression Total Score: 11 024 10:16 AM EDT documented as of this encounter Care Teams Career Technical Education Teacher Relationship Specialty Start Date End Date Chery Nicole FNP [address] [place] [address] PCP - General Family Medicine 01/07/22 documented as of this encounter
--- OUTSIDE RECORDS SUMMARY | 2025-03-14 10:36 | XMS_ITS | Encounter Summary ---
Author Organization [employer] Address [address] [place] [address] Care Team Providers Care Clinical Staff Anesthesiologist Name Role Phone Chery Nicole Primary Care Provider Encounter Details Date Type Department Care Team (Late Contact Info) Description 07/15/2022 Orders Only [facility] [address] [place] [address] Kitty Manzano LPN Social History Tobacco Use [...] Description 04/02/2025 3:15 PM EST Office Visit [facility] [address] [place] [address] Chery Nicole FNP [address] [place] [address] documented as of this encounter Visit Diagnoses Not on filedocumented in this encounter Care Teams Clinical Staff Anesthesiologist Relationship Specialty Start Date End Date Chery Nicole FNP [address] [place] [address] PCP - General Family Medicine 01/07/22 documented as of this encounter
--- OUTSIDE RECORDS SUMMARY | 2025-03-14 10:36 | XMS_ITS | Encounter Summary ---
Author Organization [employer] Address [address] [place] [address] Care Team Providers Care Planisher Name Role Phone Chery Nicole Primary Care Provider [phone] Reason for Visit * Reason Onset Date Comments Letter for School/Work 07/01/2022 Encounter Details Date Type Department Care Team (Late st Contact Info) Description 07/01/2022 Telephone [facility] [address] [place] [address] Chery Nicole FNP [address] [place] [address] Letter for School/Work Social History Tobacco Use [...] Please update letter. Please contact pt at [phone] documented in this encounter Plan of Treatment Upcoming Encounters Date Type Department Care Team (Late st Contact Info) Description 04/02/2025 3:15 PM EST Office Visit [facility] [address] [place] [address] Chery Nicole FNP [address] [place] [address] documented as of this encounter Visit Diagnoses Not on filedocumented in this encounter Care Teams Planisher Relationship Specialty Start Date End Date Chery Nicole FNP [address] [place] [phone] PCP - General Family Medicine 01/07/22 documented as of this encounter
--- OUTSIDE RECORDS SUMMARY | 2025-03-14 10:36 | XMS_ITS | Encounter Summary ---
Author Organization [employer] Address [address] [place] [phone] Care Team Providers Care Medicare Coordinator Name Role Phone Chery Nicole Primary Care Provider [phone] Reason for Visit * Reason Onset Date Comments Letter for School/Work 05/14/2022 Encounter Details Date Type Department Care Team ([facility] st Contact Info) Description 05/14/2022 Telephone [facility] [address] [place] [address] Chery Nicole FNP [address] [place] [address] Letter for School/Work Social History Tobacco Use [...] her with anxiety Please contact pt at [phone] documented in this encounter Plan of Treatment Upcoming Encounters Date Type Department Care Team (Late st Contact Info) Description 04/02/2025 3:15 PM EST Office Visit [facility] [address] [place] [address] Chery Nicole FNP [address] [place] [address] documented as of this encounter Visit Diagnoses Not on filedocumented in this encounter Care Teams Medicare Coordinator Relationship Specialty Start Date End Date Chery Nicole FNP [address] [place] [address] PCP - General Family Medicine 01/07/22 documented as of this encounter
== END 2025-03-14 09:40 | disposition home or self-care (01) ==
LOC: HO.HOS 09:18
PROVIDERS: PCP Internal Medicine
DX: G56.21 Lesion of ulnar nerve, right upper limb (principal); G56.01 Carpal tunnel syndrome, right upper limb
CPT/HCPCS: 99024

== ENCOUNTER → 2025-03-14 09:17 | Outpatient (BNVA) | payer MEDICAID, SELFPAY | PROVIDERS: PCP Internal Medicine | DX: G56.21 Lesion of ulnar nerve, right upper limb (principal); G56.01 Carpal tunnel syndrome, right upper limb | CPT/HCPCS: 99212 ==

== ENCOUNTER 2025-04-04 09:00 | Outpatient (RCR) | payer MEDICAID, SELFPAY ==
--- NOTE | 2025-02-27 14:43 | MHC.OT.EP ---
[facility] Office [address] [phone] F: [phone] F: [phone] Occupational Therapy Plan of Care Patient Name: Kitty De Jesus Date of Evaluation: 02/27/25 Diagnosis: Carpal tunnel syndrome right Pain Location: Pain in right medial elbow Current: 8-9/10 Pain in right volar wrist 7/10 Reports numbness in medial elbow scar site, hypersensitive to touch Pain Score: 8 Pain Scale Used: Numeric (0 - 10) Aggravating Factors: Forceful grasp, weightbearing, pressure of scar sites Alleviating Factors: MH, ice, rest Assessment: Pt is a 34 y/o right hand dominant female referred to OT s/p right cubital tunnel and carpal tunnel release DOS: 12/28/[address] Tran. Kitty continues to c/o hypersensitivity in the right cubital incision site, numbness in elbow, pain with lifting, and decreased strength in R UE/hand. 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 Currently on a 2# weight restriction of R hand. Quick DASH score of 52.3% indicates moderate R UE disability currently. Kitty would benefit from skilled OT services to address noted barriers and maximize functional use. 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 Thank you once again for your referral.
--- NOTE | 2025-04-04 12:06 | MHC.OT.DC ---
[facility] Office [address] [phone] F: [phone] F: [phone] Occupational Therapy Discharge Note Patient Name: Kitty De Jesus Provider: Samuel Lucero Diagnosis: s/p right cubital tunnel and carpal tunnel release Date of Surgery: 12/28/24 Date of Evaluation: 02/27/25 Date of Discharge: 04/04/25 Discharge Summary: Pt had follow up with ortho; she was cleared to return to work full duty without restrictions. Kitty has progressed very well in therapy with minimal increase in symptoms following progressive resistive exercises. At this time, wrist and elbow ROM are WNL's, gross grasp strength continues to improve (35# on right), and pt is IND with home exercises program. Denies numbness and/or tingling. She continues to experience some hypersensitivity at medial epicondyle, although this is improving and she is IND with scar massage and desensitization techniques. Pt in agreement with discharge at this time. Thank you for this referral. Electronically Signed By: Sneha Bradford MS OTR/L Reviewed/agree with student documentation: Therapist: Please Sign and return to therapist, thank you for your referral.
== END 2025-04-04 12:27 | disposition home or self-care (01) ==
LOC: HO.OTS 09:00
PROVIDERS: PCP Internal Medicine
DX: G56.21 Lesion of ulnar nerve, right upper limb (principal); G56.01 Carpal tunnel syndrome, right upper limb
CPT/HCPCS: 97035; 97110; 97140; 97165